=== PATIENT | male | born 1950 | race Caucasian/White ===

== ENCOUNTER 2019-12-24 16:50 | Emergency (ER) | payer MEDICARE, MEDICAID, SELFPAY ==
--- NOTE | 2019-12-24 16:56 | XRR_ITS ---
PROCEDURE INFORMATION: Exam: XR Chest, 1 View Exam date and time: 12/24/2019 5:27 PM Age: 69 years old Clinical indication: Cough and dyspnea; Patient HX: Low 02, rb cell count down; Additional info: Dyspnea/cough TECHNIQUE: Imaging protocol: XR of the chest Views: 1 view. COMPARISON: CR Chest 2 views* [id number] 01/10/2017 10:54 AM FINDINGS: Lungs: No focal consolidation. . Minimal subsegmental atelectasis right lower lung. Diminutive inspiratory volume. Probable nipple shadow overlies the lower left lung. Pleural space: No pleural effusion. Heart/Mediastinum: Stable heart size. Bones/joints: Degenerative change of the spine. XR/XR chest 1V portable [id number] IMPRESSION: Minimal linear atelectasis right lower lung
[2019-12-24 17:30] VITALS: BP 113/57; PULSE 93; RESP 18; TEMP 36.8; O2SAT 97; BMI 29.0
[2019-12-24 18:14] LABS: Basophils % 0.5 %; Eosinophils # 0.1 10^3/uL (0.0-0.8); Eosinophils % 1.7 %; Hematocrit 22.6 % (42.0-52.0); Hemoglobin 6.6 g/dL (11.7-16.6); Lymphocytes # 1.7 10^3/uL (0.8-4.8); Lymphocytes % 21.5 %; Mean Corpuscular HGB Conc 29.2 g/dL (30.0-36.0); Mean Corpuscular Hemoglobin 36.5 pg (28.0-34.0); Mean Corpuscular Volume 124.9 fL (80-94); Mean Platelet Volume 9.2 fL (7.4-10.4); Monocytes # 0.6 10^3/uL (0.2-0.9); Monocytes % 7.9 %; Neutrophils # 5.19 10^3/uL (1.8-7.7); Neutrophils % 67.4 %; Nucleated Red Blood Cells % 0.3 %; Platelet Count 437 10^3/cmm (130-400); Red Blood Count 1.81 10^6/uL (4.1-5.3); Red Cell Distribution Width 17.2 % (12.1-15.1); White Blood Count 7.7 10^3/uL (4.0-10.0)
[2019-12-24 18:42] LABS: Alanine Aminotransferase 15 U/L (0-41); Albumin Level 3.8 g/dL (3.5-5.2); Alkaline Phosphatase 91 IU/L (40-130); Anion Gap 12.5 (5-19); Aspartate Amino Transferase 33 U/L (0-40); Blood Urea Nitrogen 28 mg/dL (8-23); Calcium 8.5 mg/dL (8.5-10.5); Carbon Dioxide 24 mmol/L (22-29); Chloride 101 mmol/L (98-107); Globulin 2.7 g/dL (1.3-4.6); Glomerular Filtration Rate 133.2 mL/min (90-130); Glucose 191 mg/dL (65-115); Osmolality Calculated 280 mOsm/kg (285-295); Potassium 3.5 mmol/L (3.5-5.1); Sodium 134 mmol/L (136-145); Total Bilirubin 0.2 mg/dL (0.15-1.2); Total Protein 6.5 g/dL (6.6-8.7)
--- NOTE | 2019-12-24 19:24 | W.ED.RECABL ---
HPI - Recheck/Abnormal Lab/Rx General: Chief Complaint: Recheck/Abnormal Lab/Rx Stated Complaint: sob/low bc Time Seen by Provider: 12/24/19 18:56 History of Present Illness: HPI narrative: This patient is a 69-year-old male presenting with low blood counts. He went to his primary care physician who sent him here for blood transfusion due to anemia. He had gone to see his PCP because yesterday he had abdominal pain and threw up black liquid. He denies any black or tarry stools. He has been constipated. He denies any abdominal pain or vomiting today. He in fact denies any complaints and does not even think he needs a blood transfusion. Review of Systems Card: Denies: chest pain Resp: Denies: dyspnea or productive cough GI: Reports: abdominal pain, nausea, vomiting and coffee ground emesis Musc: Reports: extremity swelling (Nonhealing ulcers, lymphedema, neuropathy) Patrick/Lymph: Reports: easy bruising; Denies: easy bleeding PFS ED PFSH: Family History Brother Diabetes Mother Diabetes Sister Diabetes Father Stroke Social History Smoking and tobacco status: former smoker Physical Exam Const: COMMON NORMALS: no acute distress, patient oriented x3, no limitations and alert GENERAL APPEARANCE: cooperative and comfortable OTHER: Pale HENMT: HEAD & SCALP: normal to inspection FACE & SINUS: normal facial exam Eye: GENERAL EYE: appearance normal, both eyes and all related structures Neck/C-Spine: COMMON NORMALS: supple, no meningeal signs and no JVD Chest: COMMONS NORMALS: normal inspection of the chest Resp: COMMON NORMALS: normal respiratory effort, No use of accessory muscles and clear to auscultation bilaterally AUSCULTATION: clear to auscultation bilaterally Cardio: COMMON NORMALS: no JVD, regular rate, regular rhythm and No murmurs present (Cardio) RATE: regular rate RHYTHM: regular rhythm GI: COMMON NORMALS: Normal to inspection, nondistended, normoactive bowel sounds present, Soft to palpation and non-tender INSPECTION: Yes normal to inspection AUSCULTATION: Yes normoactive bowel sounds PALPATION: Yes Soft to palpation Back/Pelvis: COMMON NORMALS: thoracic and lumbar spine normal to inspection Extremity: COMMON NORMALS: normal to inspection NARRATIVE EXTREMITY EXAM: Notable deformity of both lower extremities with significant swelling and almost clubbing. Upper extremities also seem to have some contracture. Neuro: COMMON NORMALS: patient oriented x3, moves all extremities, no focal motor deficits and no sensory deficits noted SENSORIUM/ORIENTATION: Yes alert MENINGEAL SIGNS: Yes no meningeal signs Psych: COMMON NORMALS: mental status grossly normal, cooperative and normal affect Skin: COMMON NORMALS: no rashes or lesions noted and turgor normal GENERAL SKIN EXAM: no rashes or lesions noted and turgor normal Course ED course: Patient was very irate that he had not gotten his blood transfusion within an hour of arriving here. Explained that they had crossmatch the blood and that even the transfusion would take a while. I offered admission. He refused admission and did not want to stay in the ER. I offered to have him come back in the morning for an outpatient transfusion. He felt like that was a better plan. He is stable and has no active bleeding. Vital Signs: Vital signs: Vital Signs Temperature 98.2 F 12/24/19 17:30 Pulse Rate 101 H 12/24/19 21:19 Respiratory Rate 14 12/24/19 21:19 Blood Pressure 142/85 12/24/19 21:19 Pulse Oximetry 98 12/24/19 21:19 MDM - Recheck/Abnormal Lab/Rx Lab Data: Labs: Lab Results 12/24/19 12/24/19 12/24/19 Range/Units 18:00 18:00 18:00 WBC 7.7 (4.0-10.0) 10^3/ uL RBC 1.81 L (4.1-5.3) 10^6/u L Hgb 6.6 L (11.7-16.6) g/dL Hct 22.6 L (42.0-52.0) % MCV 124.9 H (80-94) fL MCH 36.5 H (28.0-34.0) pg MCHC 29.2 L (30.0-36.0) g/dL RDW 17.2 H (12.1-15.1) % Plt Count 437 H (130-400) 10^3/c mm MPV 9.2 (7.4-10.4) fL Neut % (Auto) 67.4 % Lymph % (Auto) 21.5 % [place] % (Auto) 7.9 % Eos % (Auto) 1.7 % Baso % (Auto) 0.5 % Neut # (Auto) 5.19 (1.8-7.7) 10^3/u L Lymph # (Auto) 1.7 (0.8-4.8) 10^3/u L [place] # (Auto) 0.6 (0.2-0.9) 10^3/u L Eos # (Auto) 0.1 (0.0-0.8) 10^3/u L Baso # (Auto) 0.0 (0.0-0.1) 10^3/u L Nucleated RBC % (a uto) 0.3 % Nucleated RBCs # 0.0 /100WBC Sodium 134 L (136-145) mmol/L Potassium 3.5 (3.5-5.1) mmol/L Chloride 101 (98-107) mmol/L Carbon Dioxide 24 (22-29) mmol/L Anion Gap 12.5 (5-19) BUN 28 H (8-23) mg/dL Creatinine 0.6 L (0.7-1.2) mg/dL GFR Calculation 133.2 H (90-130) mL/min Glucose 191 H (65-115) mg/dL Calculated Osmolal ity 280 L (285-295) mOsm/k g Calcium 8.5 (8.5-10.5) mg/dL Total Bilirubin 0.2 (0.15-1.2) mg/dL AST 33 (0-40) U/L ALT 15 (0-41) U/L Alkaline Phosphata se 91 (40-130) IU/L Total Protein 6.5 L (6.6-8.7) g/dL Albumin 3.8 (3.5-5.2) g/dL Globulin 2.7 (1.3-4.6) g/dL Digoxin (0.6-1.2) ng/mL Blood Type O Positive Rho(D) Type Positive Antibody Screen Negative Crossmatch See Detail 12/24/19 Range/Units 19:27 WBC (4.0-10.0) 10^3/ uL RBC (4.1-5.3) 10^6/u L Hgb (11.7-16.6) g/dL Hct (42.0-52.0) % MCV (80-94) fL MCH (28.0-34.0) pg MCHC (30.0-36.0) g/dL RDW (12.1-15.1) % Plt Count (130-400) 10^3/c mm MPV (7.4-10.4) fL Neut % (Auto) % Lymph % (Auto) % [place] % (Auto) % Eos % (Auto) % Baso % (Auto) % Neut # (Auto) (1.8-7.7) 10^3/u L Lymph # (Auto) (0.8-4.8) 10^3/u L [place] # (Auto) (0.2-0.9) 10^3/u L Eos # (Auto) (0.0-0.8) 10^3/u L Baso # (Auto) (0.0-0.1) 10^3/u L Nucleated RBC % (a uto) % Nucleated RBCs # /100WBC Sodium (136-145) mmol/L Potassium (3.5-5.1) mmol/L Chloride (98-107) mmol/L Carbon Dioxide (22-29) mmol/L Anion Gap (5-19) BUN (8-23) mg/dL Creatinine (0.7-1.2) mg/dL GFR Calculation (90-130) mL/min Glucose (65-115) mg/dL Calculated Osmolal ity (285-295) mOsm/k g Calcium (8.5-10.5) mg/dL Total Bilirubin (0.15-1.2) mg/dL AST (0-40) U/L ALT (0-41) U/L Alkaline Phosphata se (40-130) IU/L Total Protein (6.6-8.7) g/dL Albumin (3.5-5.2) g/dL Globulin (1.3-4.6) g/dL Digoxin 1.2 (0.6-1.2) ng/mL Blood Type Rho(D) Type Antibody Screen Crossmatch Discharge Plan Discharge Patient Disposition: Home Clinical Impression: Anemia Qualifiers: Anemia type: unspecified type Qualified Code(s): D64.9 - Anemia, unspecified Condition: Stable Prescriptions: No Action Lantus U-100 Insulin 100 unit/mL solution See Rx Instructions .ROUTE .COMPLEX RF: 0 atorvastatin 40 mg tablet 40 mg PO DAILY RF: 0 Farxiga 10 mg tablet 10 mg PO DAILY RF: 0 glyburide 5 mg tablet 5 mg PO BID RF: 0 aspirin 325 mg tablet 325 mg PO DAILY RF: 0 Janumet 50-1,000 mg tablet 1 tab PO BID RF: 0 cholecalciferol (vitamin D3) 1,250 mcg (50,000 unit) capsule 50,000 unit PO Q7D RF: 0 ferrous sulfate 325 mg (65 mg iron) tablet 325 mg PO BID RF: 0 gabapentin 300 mg capsule 300 mg PO BID RF: 0 clopidogrel 75 mg tablet 75 mg PO DAILY 90 Days Qty: 90 RF: 3 gemfibrozil 600 mg tablet 600 mg PO BID 30 Days Qty: 60 RF: 6 digoxin 250 mcg (0.25 mg) tablet 250 mcg PO DAILY 30 Days Qty: 30 RF: 6 fenofibrate 160 mg tablet 160 mg PO DAILY 30 Days Qty: 90 RF: 3 atenolol 25 mg tablet 25 mg PO DAILY 30 Days Qty: 90 RF: 3 Fish Oil 1,200 (144-216) mg Capsule 1 cap PO BID RF: 0 Vitamin C 1 tab PO BID RF: 0 furosemide 40 mg tablet 60 mg PO DAILY RF: 0 potassium chloride 20 mEq tablet extended release 30 meq PO DAILY RF: 0 Discharge Orders: Discharge Order (Routine); Ordered 12/24/19 Ordered By: Madeleine Maurer Referrals: Dilip Solano, BUSINESS DEVELOPMENT ASSISTANT [Primary Care Provider] - Activity Restrictions/Additional Instructions: Return to the GI lab tomorrow for a blood transfusion. Do not take off the blood bank armband as you must have that in order to get the blood that was prepared tonight. Discharge Date/Time: 12/24/19 21:20 Coding Level of Care Code ED Civil Engineering Professional for Soheila Harry Exam Comprehensive
[2019-12-24 20:15] LABS: Digoxin 1.2 ng/mL (0.6-1.2)
[2019-12-24 20:32] VITALS: BP 137/76; PULSE 101; RESP 14; O2SAT 97
[2019-12-24 21:19] VITALS: BP 142/85; PULSE 101; RESP 14; O2SAT 98
== END 2019-12-24 21:20 | disposition home or self-care (01) ==
PROVIDERS: Family Medicine; Emergency Provider Emergency Medicine; PCP Nurse Practitioner
DX: D64.9 Anemia, unspecified (principal); Z79.82 Long term (current) use of aspirin; Z79.4 Long term (current) use of insulin; Z79.02 Long term (current) use of antithrombotics/antiplatelets; Z87.891 Personal history of nicotine dependence; R11.2 Nausea with vomiting, unspecified
CPT/HCPCS: 12345; 36415; 71045; 80053; 80162; 85025; 86850; 86900; 86920; 99282; 99283

== ENCOUNTER → 2019-12-26 08:47 | Day surgery (SDC) | payer MEDICARE, MEDICAID, SELFPAY ==
[2019-12-26] VITALS (11 sets, daily range): BP systolic 109–135; BP diastolic 54–67; PULSE 83–89; RESP 18; TEMP 36.8–37.4; O2SAT 98–100
== END ==
PROVIDERS: PCP Nurse Practitioner; Visit Provider Emergency Medicine
DX: D64.9 Anemia, unspecified (principal)
CPT/HCPCS: 36415; 36430; 86850; 86900; 86920; P9016

== ENCOUNTER 2020-07-10 07:03 | Emergency (ER) | payer MEDICARE, MEDICAID, SELFPAY ==
[2020-07-10] VITALS (10 sets, daily range): BP systolic 112–135; BP diastolic 47–75; PULSE 91–100; RESP 16–19; TEMP 36.6–37.1; O2SAT 95–100; BMI 29.0
--- NOTE | 2020-07-10 07:10 | XRR_ITS ---
PROCEDURE INFORMATION: Exam: XR Chest, 1 View Exam date and time: 07/10/2020 7:13 AM Age: 69 years old Clinical indication: Shortness of breath; Additional info: Reduced breath sounds TECHNIQUE: Imaging protocol: XR of the chest Views: 1 view. COMPARISON: CR XR chest 1V portable [id number] 12/24/2019 5:12 PM FINDINGS: Lungs: Unremarkable. No consolidation. Pleural spaces: Unremarkable. No pleural effusion. No pneumothorax. Heart/Mediastinum: Unremarkable. No cardiomegaly. Bones/joints: Unremarkable. XR/XR chest 1V portable [id number] IMPRESSION: No acute findings.
--- NOTE | 2020-07-10 07:12 | ECG_ITS ---
[facility] Test Date: 2020-07-10 Pat Name: Allan Hardin Department: Room: Gender: Male It Integration Architect: : 1950 Requested By: Jose Cruz Lee Order Number: [id number] Jha MD: Joy Galvan M.D. Measurements Intervals Muse Rate: 94 P: 82 SC: 146 QRS: 59 QRSD: 88 T: -3 QT: 344 QTc: 431 Interpretive Statements SINUS RHYTHM NONSPECIFIC ST & T-WAVE ABNORMALITY Compared to ECG 07/18/2014 22:40:10 Sinus tachycardia no longer present T-wave abnormality still present Electronically Signed On 07-10-2020 19:29:11 WOOD PRESERVING [employer] by Joy Galvan M.D. [id number]
[2020-07-10 07:24] LABS: ABG PCO2 37.8 mmHg (35-45); ABG PH Result 7.46 (7.35-7.45); Arterial Blood Gas Hematocrit 18.2 % (42-52); Base Excess ABG 2.7 mmol/L (-2.0-2.0); Blood Gas Allen Test Pos; Blood Gas Operator Identificat ED; Blood Gas Sample Site Radial, right; Blood Gas Sample Type Arterial; Carboxyhemoglobin 2.8 %THgb (0.4-20.1); HCO3 ABG 26.8 mmol/L (22-26); HGB O2 Sat 92.1 % (95-100); Methemoglobin 1.4 % (0.4-1.5); Oxygen Device ROOM AIR; PO2 ABG 70.5 mmHg (80.0-100.0); Total Hemoglobin 5.9 g/dL (14-18)
[2020-07-10] MEDS: insulin regular-human 100 units/1 mL 10 UNIT IVP (07:32)
--- NOTE | 2020-07-10 07:32 | ED_ITS ---
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 He comes to the ER complaining of increasing fatigue and coughing up blood though he says in the ER he did not cough up blood he vomited blood. He is not coughing in the ER nor on the EMS ride. His glucose was 481 on arrival. He did not take his insulin this morning. He is a poor historian and describes his symptoms poorly. He says he started feeling unwell last night. Associated symptoms: Deny chest pain, confusion, dyspnea, headache(s), rash or palpitations Review of Systems General: Reports: 10 or more systems reviewed and unremarkable except in HPI and below Const: Denies: fatigue Eyes: Denies: change in vision, blurry vision or eye redness ENMT: Denies: throat pain, swelling of lips/tongue, ear or mastoid pain or nasal congestion Card: Denies: chest pain, palpitations, irregular heart rhythm, edema, dyspnea on exertion or orthopnea Resp: Denies: dyspnea, productive cough or non-productive cough GI: Denies: abdominal pain, diarrhea or GI cramping : Denies: flank pain, urinary frequency or urinary urgency Musc: Denies: neck pain, back pain, extremity pain, joint pain, joint redness, limited range of motion or muscle weakness Skin/Breast: Denies: rash, pruritus, erythema, skin pain or skin tenderness Neuro: Denies: headache(s), numbness in extremities, weakness in extremities, sensory changes, difficulty walking, dizziness, confusion or Slurred speech present Psych: Denies: anxiety or depression Endo: Denies: polyuria All/Imm: Denies: urticaria, throat swelling or tongue swelling PFSH ED PFSH: Medical History (Updated 07/10/20 @ 09:38 by Jose Cruz Lee MD) CAD (coronary artery disease) Diabetes mellitus History of MN (myocardial infarction) Lymphedema PAD (peripheral artery disease) Phimosis Venous insufficiency Surgical History S/P appendectomy Family History Brother Diabetes Mother Diabetes Sister Diabetes Father Stroke Social History Smoking and tobacco status: former smoker Alcohol intake: former Marital status: Current occupational status: disabled Physical Exam Const: COMMON NORMALS: no acute distress, average body habitus, patient oriented x3, no limitations, healthy appearing, alert and well nourished GENERAL APPEARANCE: cooperative, comfortable, well kempt and well developed ORIENTATION/CONSCIOUSNESS: Yes awake, Yes oriented to person, Yes oriented to place and Yes oriented to time HENMT: COMMON NORMALS: normocephalic, external ears normal and Normal external nose present HEAD & SCALP: normal to inspection and normocephalic NOSE: Normal external nose present EXTERNAL EAR: Yes external ears normal MOUTH: Normal oral and palatal mucosa present THROAT: posterior oropharynx normal Eye: COMMON NORMALS: Equal, round and reactive pupils present and EOMs intact bilaterally GENERAL EYE: appearance normal, both eyes and all related structures PUPIL: Yes Equal, round and reactive pupils present Neck/C-Spine: COMMON NORMALS: full ROM, no lymphadenopathy, no meningeal signs and no JVD GENERAL: Yes normal visual inspection Lymph: LYMPHATIC: no lymphadenopathy noted Chest: COMMONS NORMALS: normal inspection of the chest and normal palpation of entire chest wall Resp: COMMON NORMALS: normal respiratory effort, No retractions, No use of accessory muscles, clear to auscultation bilaterally and percussion normal EFFORT & INSPECTION: Yes able to speak in complete sentences AUSCULTATION: clear to auscultation bilaterally PERCUSSION: percussion normal Cardio: COMMON NORMALS: no JVD, regular rate, regular rhythm, S1 normal heart sound present, S2 normal heart sound present and Peripheral pulses 2+ throughout RATE: regular rate RHYTHM: regular rhythm HEART SOUNDS: S1 normal heart sound present and S2 normal heart sound present PERIPHERAL PULSES: Peripheral pulses 2+ throughout GI: COMMON NORMALS: Normal to inspection, nondistended, normoactive bowel sounds present, Soft to palpation, non-tender and no masses INSPECTION: Yes normal to inspection PALPATION: Yes Soft to palpation : COMMON NORMALS: Yes no CVA tenderness BLADDER/KIDNEY EXAM: Yes no CVA tenderness Back/Pelvis: COMMON NORMALS: no CVA tenderness, thoracic and lumbar spine normal to inspection, no thoracic nor lumbar tenderness and thoraco-lumbar ROM normal Extremity: COMMON NORMALS: normal to inspection, full ROM, capillary refill normal, no joint enlargement and no pedal edema GENERAL: Yes normal exam except as noted Neuro: COMMON NORMALS: patient oriented x3, CN's II-XII intact bilaterally, moves all extremities, no focal motor deficits, no sensory deficits noted and gait normal SENSORIUM/ORIENTATION: Yes alert, Yes oriented to person, Yes oriented to place and Yes oriented to time MENINGEAL SIGNS: Yes no meningeal signs Psych: COMMON NORMALS: mental status grossly normal, Normal thought process present, cooperative, normal affect and speech normal APPEARANCE: Yes well kempt ATTITUDE: Yes calm SPEECH: Yes normal speech THOUGHT PROCESS: Normal thought process present Skin: COMMON NORMALS: no rashes or lesions noted NARRATIVE SKIN EXAM: Chronic elephantiasis to calfs down to feet which is moderate to severe. GENERAL SKIN EXAM: no rashes or lesions noted Course ED course: His hemoglobin came back at 5.9. He has chronic severe anemia and has been transfused before. The cause of this is unknown because he refuses EGD and colonoscopy. I asked him again and he again refused. I told him he could bleed to and he understands and accepts those consequences and still refuses. Discussed with Dr. Navarro who accepts to the floor. Vital Signs: Vital signs: Vital Signs Temperature 98.0 F 07/10/20 09:27 Pulse Rate 99 07/10/20 09:27 Respiratory Rate 18 07/10/20 09:27 Blood Pressure 133/75 07/10/20 09:27 Pulse Oximetry 97 07/10/20 09:[address] [facility] - General Adult Lab Data: Labs: Lab Results 07/10/20 07/10/20 07/10/20 Range/Units 07:14 07:21 07:21 WBC 8.0 (4.0-10.0) 10^3/ uL RBC 2.12 L (4.1-5.3) 10^6/u L Hgb 5.9 L* (11.7-16.6) g/dL Hct 21.6 L (42.0-52.0) % MCV 101.9 H (80-94) fL MCH 27.8 L (28.0-34.0) pg MCHC 27.3 L (30.0-36.0) g/dL RDW 15.9 H (12.1-15.1) % Plt Count 497 H (130-400) 10^3/c mm MPV 9.8 (7.4-10.4) fL Neut % (Auto) 80.3 % Lymph % (Auto) 12.0 % [place] % (Auto) 6.4 % Eos % (Auto) 0.2 % Baso % (Auto) 0.5 % Neut # (Auto) 6.45 (1.8-7.7) 10^3/u L Lymph # (Auto) 1.0 (0.8-4.8) 10^3/u L [place] # (Auto) 0.5 (0.2-0.9) 10^3/u L Eos # (Auto) 0.0 (0.0-0.8) 10^3/u L Baso # (Auto) 0.0 (0.0-0.1) 10^3/u L Nucleated RBC % (a uto) 0 % Nucleated RBCs # 0.0 /100WBC Specimen Type Arterial Sample Site Radial, right ABG pH 7.46 H (7.35-7.45) ABG pCO2 37.8 (35-45) mmHg ABG pO2 70.5 L (80.0-100.0) mmH g ABG HCO3 26.8 H (22-26) mmol/L ABG Base Excess 2.7 H (-2.0-2.0) mmol/ L Joseluis Test Pos Hematocrit 18.2 L (42-52) % Hgb O2 Saturation 92.1 L (95-100) % Carboxyhemoglobin 2.8 (0.4-20.1) %THgb Methemoglobin 1.4 (0.4-1.5) % Total Hemoglobin 5.9 L (14-18) g/dL O2 Delivery Device Room air FiO2 21.0 % Graining Operator ID Ed Sodium 134 L (136-145) mmol/L Potassium 4.5 (3.5-5.1) mmol/L Chloride 96 L (98-107) mmol/L Carbon Dioxide 26 (22-29) mmol/L Anion Gap 16.5 (5-19) BUN 35 H (8-23) mg/dL Creatinine 0.7 (0.7-1.2) mg/dL GFR Calculation 111.5 (90-130) mL/min Glucose 439 H (65-115) mg/dL Calculated Osmolal ity 305 H (285-295) mOsm/k g Lactate (0.5-2.2) mmol/L Calcium 9.2 (8.5-10.5) mg/dL Total Bilirubin 0.2 (0.15-1.2) mg/dL AST 29 (0-40) U/L ALT 15 (0-41) U/L Alkaline Phosphata se 126 (40-130) IU/L Troponin T Baselin e (0-15) ng/L NT-Pro-B Natriuret Pep 103 (0-125) pg/mL Total Protein 7.1 (6.6-8.7) g/dL Albumin 3.8 (3.5-5.2) g/dL Globulin 3.3 (1.3-4.6) g/dL Urine Color (Yellow) Urine Appearance (CLEAR) Urine pH (5-7) Ur Specific Gravit y (1.005-1.030) Urine Protein (Negative) Urine Glucose (UA) (Normal) Urine Ketones (Negative) Urine Blood (Negative) Urine Nitrate (Negative) Urine Bilirubin (Negative) Urine Urobilinogen (Negative) mg/dL Ur Leukocyte [place] ase (Negative) Blood Type Rho(D) Type Antibody Screen Crossmatch 07/10/20 07/10/20 07/10/20 Range/Units 07:21 07:21 08:21 WBC (4.0-10.0) 10^3/ uL RBC (4.1-5.3) 10^6/u L Hgb (11.7-16.6) g/dL Hct (42.0-52.0) % MCV (80-94) fL MCH (28.0-34.0) pg MCHC (30.0-36.0) g/dL RDW (12.1-15.1) % Plt Count (130-400) 10^3/c mm MPV (7.4-10.4) fL Neut % (Auto) % Lymph % (Auto) % [place] % (Auto) % Eos % (Auto) % Baso % (Auto) % Neut # (Auto) (1.8-7.7) 10^3/u L Lymph # (Auto) (0.8-4.8) 10^3/u L [place] # (Auto) (0.2-0.9) 10^3/u L Eos # (Auto) (0.0-0.8) 10^3/u L Baso # (Auto) (0.0-0.1) 10^3/u L Nucleated RBC % (a uto) % Nucleated RBCs # /100WBC Specimen Type Sample Site ABG pH (7.35-7.45) ABG pCO2 (35-45) mmHg ABG pO2 (80.0-100.0) mmH g ABG HCO3 (22-26) mmol/L ABG Base Excess (-2.0-2.0) mmol/ L Joseluis Test Hematocrit (42-52) % Hgb O2 Saturation (95-100) % Carboxyhemoglobin (0.4-20.1) %THgb Methemoglobin (0.4-1.5) % Total Hemoglobin (14-18) g/dL O2 Delivery Device FiO2 % Graining Operator ID Sodium (136-145) mmol/L Potassium (3.5-5.1) mmol/L Chloride (98-107) mmol/L Carbon Dioxide (22-29) mmol/L Anion Gap (5-19) BUN (8-23) mg/dL Creatinine (0.7-1.2) mg/dL GFR Calculation (90-130) mL/min Glucose (65-115) mg/dL Calculated Osmolal ity (285-295) mOsm/k g Lactate 2.5 H (0.5-2.2) mmol/L Calcium (8.5-10.5) mg/dL Total Bilirubin (0.15-1.2) mg/dL AST (0-40) U/L ALT (0-41) U/L Alkaline Phosphata se (40-130) IU/L Troponin T Baselin e 21 H (0-15) ng/L NT-Pro-B Natriuret Pep (0-125) pg/mL Total Protein (6.6-8.7) g/dL Albumin (3.5-5.2) g/dL Globulin (1.3-4.6) g/dL Urine Color (Yellow) Urine Appearance (CLEAR) Urine pH (5-7) Ur Specific Gravit y (1.005-1.030) Urine Protein (Negative) Urine Glucose (UA) (Normal) Urine Ketones (Negative) Urine Blood (Negative) Urine Nitrate (Negative) Urine Bilirubin (Negative) Urine Urobilinogen (Negative) mg/dL Ur Leukocyte [place] ase (Negative) Blood Type O Positive Rho(D) Type Positive Antibody Screen Negative Crossmatch See Detail 07/10/20 Range/Units 08:25 WBC (4.0-10.0) 10^3/ uL RBC (4.1-5.3) 10^6/u L Hgb (11.7-16.6) g/dL Hct (42.0-52.0) % MCV (80-94) fL MCH (28.0-34.0) pg MCHC (30.0-36.0) g/dL RDW (12.1-15.1) % Plt Count (130-400) 10^3/c mm MPV (7.4-10.4) fL Neut % (Auto) % Lymph % (Auto) % [place] % (Auto) % Eos % (Auto) % Baso % (Auto) % Neut # (Auto) (1.8-7.7) 10^3/u L Lymph # (Auto) (0.8-4.8) 10^3/u L [place] # (Auto) (0.2-0.9) 10^3/u L Eos # (Auto) (0.0-0.8) 10^3/u L Baso # (Auto) (0.0-0.1) 10^3/u L Nucleated RBC % (a uto) % Nucleated RBCs # /100WBC Specimen Type Sample Site ABG pH (7.35-7.45) ABG pCO2 (35-45) mmHg ABG pO2 (80.0-100.0) mmH g ABG HCO3 (22-26) mmol/L ABG Base Excess (-2.0-2.0) mmol/ L Joseluis Test Hematocrit (42-52) % Hgb O2 Saturation (95-100) % Carboxyhemoglobin (0.4-20.1) %THgb Methemoglobin (0.4-1.5) % Total Hemoglobin (14-18) g/dL O2 Delivery Device FiO2 % Graining Operator ID Sodium (136-145) mmol/L Potassium (3.5-5.1) mmol/L Chloride (98-107) mmol/L Carbon Dioxide (22-29) mmol/L Anion Gap (5-19) BUN (8-23) mg/dL Creatinine (0.7-1.2) mg/dL GFR Calculation (90-130) mL/min Glucose (65-115) mg/dL Calculated Osmolal ity (285-295) mOsm/k g Lactate (0.5-2.2) mmol/L Calcium (8.5-10.5) mg/dL Total Bilirubin (0.15-1.2) mg/dL AST (0-40) U/L ALT (0-41) U/L Alkaline Phosphata se (40-130) IU/L Troponin T Baselin e (0-15) ng/L NT-Pro-B Natriuret Pep (0-125) pg/mL Total Protein (6.6-8.7) g/dL Albumin (3.5-5.2) g/dL Globulin (1.3-4.6) g/dL Urine Color Yellow (Yellow) Urine Appearance Clear (CLEAR) Urine pH 7 (5-7) Ur Specific Gravit y 1.005 (1.005-1.030) Urine Protein Neg (Negative) Urine Glucose (UA) 4+ H (Normal) Urine Ketones 1+ H (Negative) Urine Blood Neg (Negative) Urine Nitrate Negative (Negative) Urine Bilirubin Neg (Negative) Urine Urobilinogen Norm (Negative) mg/dL Ur Leukocyte [place] ase Negative (Negative) Blood Type Rho(D) Type Antibody Screen Crossmatch Discharge Plan Discharge Patient Disposition: Placed in Observation Clinical Impression: Severe anemia, Acute hyperglycemia Coding Level of Care Code ED Cannery Worker for Soheila Harry
[2020-07-10] MEDS: sodium chloride 0.9% 1,000 ML 999 ML IV (07:35)
[2020-07-10 08:07] LABS: Basophils % 0.5 %; Eosinophils % 0.2 %; Hematocrit 21.6 % (42.0-52.0); Mean Corpuscular HGB Conc 27.3 g/dL (30.0-36.0); Mean Corpuscular Hemoglobin 27.8 pg (28.0-34.0); Mean Corpuscular Volume 101.9 fL (80-94); Mean Platelet Volume 9.8 fL (7.4-10.4); Monocytes # 0.5 10^3/uL (0.2-0.9); Monocytes % 6.4 %; Neutrophils # 6.45 10^3/uL (1.8-7.7); Neutrophils % 80.3 %; Nucleated Red Blood Cells % 0 %; Platelet Count 497 10^3/cmm (130-400); Red Blood Count 2.12 10^6/uL (4.1-5.3); Red Cell Distribution Width 15.9 % (12.1-15.1)
[2020-07-10 08:11] LABS: Hemoglobin 5.9 g/dL (11.7-16.6)
--- NOTE | 2020-07-10 08:24 | PC.NURSE ---
Pt resting in bed, brought consent in for patient and . Patient explained that could sign the consent, as he was getting blood drawn. Patient is agreeable to blood transfusion.
[2020-07-10 08:39] LABS: Lactate (Lactic Acid level) 2.5 mmol/L (0.5-2.2)
[2020-07-10 08:41] LABS: Troponin(5th) Baseline 21 ng/L (0-15)
[2020-07-10 08:50] LABS: Add Urine Microscopic? NO
[2020-07-10 09:04] LABS: Bilirubin Urine Neg (Negative); Blood Urine Neg (Negative); Glucose Urine UA 4+ (Normal); Ketones Urine 1+ (Negative); Leukocyte Esterase Urine Negative (Negative); Nitrate Urine Negative (Negative); Protein Urine Neg (Negative); Specific Gravity, Urine 1.005 (1.005-1.030); Urine Appearance Clear (CLEAR); Urine Color Yellow (Yellow); Urobilinogen Urine Norm (Negative); pH Urine 7 (5-7)
[2020-07-10 09:06] LABS: Alanine Aminotransferase 15 U/L (0-41); Albumin Level 3.8 g/dL (3.5-5.2); Alkaline Phosphatase 126 IU/L (40-130); Anion Gap 16.5 (5-19); Aspartate Amino Transferase 29 U/L (0-40); Blood Urea Nitrogen 35 mg/dL (8-23); Calcium 9.2 mg/dL (8.5-10.5); Carbon Dioxide 26 mmol/L (22-29); Chloride 96 mmol/L (98-107); Globulin 3.3 g/dL (1.3-4.6); Glomerular Filtration Rate 111.5 mL/min (90-130); Glucose 439 mg/dL (65-115); NT Pro B Type Natriuretic Pept 103 pg/mL (0-125); Osmolality Calculated 305 mOsm/kg (285-295); Potassium 4.5 mmol/L (3.5-5.1); Sodium 134 mmol/L (136-145); Total Bilirubin 0.2 mg/dL (0.15-1.2); Total Protein 7.1 g/dL (6.6-8.7)
--- NOTE | 2020-07-10 10:18 | PM.HP ---
Providers/Chief Complaint Primary Care Provider: MALOU Najera Chief Complaint: COUGHING UP BLOOD History of Present Illness Pleasant 69-year-old gentleman with history of surgery for necrotizing appendicitis in 1989, PAD, on chronic aspirin, Plavix, occasionally taking Aleve, former smoker, having quit 4 years ago, denies any alcohol consumption, comes in for evaluation after emesis of bloody and dark/coffee-ground/almost feculent appearing material this morning. Prior to this he was at usual state of health. He had an episode similar to this in December 2019 at which time received blood transfusion, but reportedly declined additional endoscopic evaluation. Denies that he has ever had a EGD. Hemoccult positive in ER. Reports having looser stool this morning, but otherwise suffers from recurrent constipation. No hemoptysis. Reports occasional cough no recent stopping smoking, but no worsening recently. Not coughing up blood. Denies george hematemesis. No known history of liver disease. He did not take his medications this morning. Review of Systems Const: Denies: fever(s), chills, body aches or malaise Eyes: Denies: change in vision or eye redness ENMT: Denies: throat pain, oral sores or ear or mastoid pain Card: Denies: chest pain, edema, pre-syncope or dyspnea on exertion Resp: Denies: dyspnea, productive cough, change in phlegm color or hemoptysis GI: Denies: abdominal pain, nausea, vomiting, diarrhea, constipation, hematochezia or melena : Denies: flank pain, difficulty urinating, urinary frequency or hematuria Musc: Reports: other (Nonambulatory since 2016. Gets around in a wheelchair.); Denies: back pain, joint swelling or joint redness Skin/Breast: Reports: other (Chronic hyperkeratotic/sclerosing lesions covering most of bilateral LE); Denies: rash, sores or new lesions Neuro: Denies: headache(s), numbness in extremities, weakness in extremities, dizziness, confusion or seizure-like activity Endo: Denies: polyuria or polydipsia Patrick/Lymph: Denies: easy bleeding or purpura All/Imm: Denies: urticaria, throat swelling or tongue swelling Medications/Allergies Home Medications Medication Instructions Recorded Confirmed Last Taken Type aspirin 325 mg tablet 325 mg PO DAILY 09/17/19 07/10/2007/09/21 History atorvastatin 40 mg tablet 40 mg PO DAILY 09/17/19 07/10/20 07/09/20 History dapagliflozin 10 mg tablet 10 mg PO DAILY 09/17/19 07/10/20 07/09/20 History ferrous sulfate 325 mg (65 mg 325 mg PO BID 09/17/19 07/10/20 07/09/20 History iron) tablet gabapentin 300 mg capsule 300 mg PO BID 09/17/19 07/10/20 07/09/20 History glyburide 5 mg tablet 5 mg PO BID 09/17/19 07/10/20 07/09/20 History insulin glargine 100 unit/mL See Rx Instructions .ROUTE 09/17/19 07/10/20 07/10/20 History subcutaneous solution .COMPLEX ml sitagliptin 50 mg-metformin 1,000 1 tab PO BID 09/17/19 07/10/20 07/09/20 History mg tablet omega 3-pjg-kxu-fish oil [Fish Oil] 1 cap PO BID 12/24/19 07/10/20 07/09/20 History atenolol 25 mg tablet 25 mg PO DAILY #90 tab 01/20/20 07/10/20 07/09/20 Rx digoxin 250 mcg (0.25 mg) tablet 250 mcg PO DAILY #30 tab 02/03/20 07/10/20 07/09/20 Rx potassium chloride 20 mEq See Rx Instructions .ROUTE 02/03/20 07/10/20 07/09/20 Rx tablet,extended release(part/cryst) .COMPLEX #45 unspecified bisacodyl 5 mg tablet 5 mg PO DAILY PRN 02/19/20 07/10/20 Unknown History fenofibrate 160 mg tablet 160 mg PO DAILY 02/19/20 07/10/20 07/09/20 History folic acid-vit B6-vit B12 2.5 1 tab PO DAILY 02/19/20 07/10/20 07/09/20 History mg-25 mg-1 mg tablet gemfibrozil 600 mg tablet 600 mg PO BID 02/19/20 07/10/20 07/09/20 History clopidogrel 75 mg tablet 75 mg PO DAILY #90 tab 05/05/20 07/10/20 07/09/20 Rx furosemide 40 mg tablet See Rx Instructions .ROUTE 01/12/0807/10/20 07/09/20 Rx .COMPLEX #45 tab ascorbic acid (vitamin C) 500 mg 500 mg PO DAILY 06/09/20 07/10/20 07/09/20 History capsule cholecalciferol (vitamin D3) 1,250 50,000 unit PO Q14D cap 06/09/20 07/10/20 Unknown History mcg (50,000 unit) capsule nystatin 100,000 unit/gram topical 1 applic TOPICAL BID PRN 06/09/20 07/10/20 Unknown History cream Allergies Allergy/AdvReac Type Severity Reaction Status Date / Time Penicillins Allergy Unknown Unknown Verified 12/24/19 19:21 PFSH Acute PFSH: Medical History (Updated 07/10/20 @ 10:29 by Artemio Navarro MD) CAD (coronary artery disease) Diabetes mellitus Former smoker History of [place] (myocardial infarction) Lymphedema PAD (peripheral artery disease) Phimosis Unable to ambulate Venous insufficiency Surgical History (Updated 07/10/20 @ 10:24 by Artemio Navarro MD) S/P appendectomy S/P peripheral artery angioplasty with stent placement Family History Brother Diabetes Mother Diabetes Sister Diabetes Father Stroke Social History Smoking and tobacco status: former smoker Quit status (tobacco): has quit using tobacco Year quit tobacco: 4 ya Alcohol intake: former Substance/Drug Use: never Lives independently: No Household members: spouse Marital status: Current occupational status: disabled Vitals/I&O/Wt Last Vital Signs Temp 98.0 F 07/10/20 09:59 Pulse 100 07/10/20 09:59 Resp 18 07/10/20 09:59 BP 123/62 07/10/20 09:59 Pulse Ox 97 07/10/20 09:59 07/09/20 07/10/20 07/10/20 22:59 06:59 14:59 Intake Total 1000 / 1000 Balance 1000 / 1000 Weight last 48 hrs Weight 81.647 kg Physical Exam Narrative: EXAM NARRATIVE: Accompanied in ER room by his . Provides most of his own history, with feeling in a few details. Const: COMMON NORMALS: no acute distress and patient oriented x3 NUTRITIONAL APPEARANCE: overweight HENMT: COMMON NORMALS: oropharynx normal Neck/C-Spine: COMMON NORMALS: no JVD Resp: COMMON NORMALS: normal respiratory effort and clear to auscultation bilaterally AUSCULTATION: clear to auscultation bilaterally Cardio: COMMON NORMALS: no JVD, regular rhythm, S1 normal heart sound present, S2 normal heart sound present and No murmurs present (Cardio) RHYTHM: regular rhythm HEART SOUNDS: S1 normal heart sound present and S2 normal heart sound present GI: COMMON NORMALS: Normal to inspection, nondistended, normoactive bowel sounds present, Soft to palpation and non-tender PALPATION: Yes Soft to palpation Extremity: COMMON NORMALS: no joint enlargement and no pedal edema OTHER: Foot contractures. Right hand contracture. Neuro: COMMON NORMALS: patient oriented x3 and moves all extremities Skin: COMMON NORMALS: no rashes or lesions noted GENERAL SKIN EXAM: no rashes or lesions noted OTHER: Severe hyperkeratosis of large surfaces of both lower extremities. Data : 07/10/20 07:21 07/10/20 07:21 A&P Assessment and plan (1) Upper GI bleeding: Hematemesis this morning. Appears this is a recurrent episode, with last episode in December 2019. At that time managed conservatively. He declined to undergo EGD. He takes regularly his aspirin, 325 mg, Plavix. Occasionally takes Aleve. Did not take any of the medications this morning after hematemesis. No history of liver disease. No george hematemesis. Hemoglobin 5.9. 2 units pRBC transfusion ordered in ER. Follow up hemoglobin. IV PPI, every 12 hours. Discussed with him his . Discussed also for now we will hold aspirin, Plavix. He now also would be agreeable for endoscopic evaluation. With history of smoking, and he tells me also used to eat a number of poisonous plants in the past to survive, including mistletoe and water lilies. Status: Acute (2) Acute anemia: As above. Status: Acute (3) Hematemesis: PPI. N.p.o. Blood transfusion. Follow hemoglobin. Surgery evaluation. Hold aspirin, Plavix. Discussed with him and his to discontinue Aleve. May use Tylenol if needed. Status: Acute (4) Troponin level elevated: Minimal vaginal troponin. Denies any chest pain. Perhaps secondary to acute anemia. Receiving PRBC transfusion as above. Listed history of CAD, although he denies. For now aspirin, Plavix on hold. Continue statin. Status: Acute (5) Unable to ambulate: Since 2016. Gets around in a wheelchair. Appears to have chronic contractures of feet, right hand. Status: Acute (6) DM type 2 (diabetes mellitus, type 2): Continue Lantus. Hold oral medications for now. Sliding scale insulin. Status: Acute (7) Former smoker: Status: Inactive Attestations Medical Necessity Statement*: Admission of over 2 midnights ago needed for assessment of management of recurrent GI bleeding, acute severe anemia, hematemesis, in a gentleman on dual antiplatelet therapy with history of PAD and stenting. 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
--- NOTE | 2020-07-10 11:58 | P.CONIM_ITS ---
Providers/Reason For Consult Consulting Physican/Specialty*: Alexey Moya MD Reason for Consult*: Coffee-ground emesis associated with anemia Attending Physician: Artemio Navarro Primary Care Provider: MALOU Najera History of Present Illness History of Present Illness Chief Complaint: Vomited black stuff History of present illness: Allan Hardin is a 69 year old male presents to the emergency department with history of coffee-ground emesis today morning, patient comes to the ER escorted by his and apparently he had a similar episode back in December and required blood transfusion but never undergone endoscopies. Patient was tested for Hemoccult positive in the ER and he does sustain chronic lymphedema of bilateral lower extremities. Patient maintained to have stable vital signs and blood work showed hemoglobin of 5.9. Patient denies any previous peptic ulcer disease but he does report being on chronic aspirin and Plavix therapy. And takes Aleve as needed. He denies alcohol consumption. General surgery was consulted for potential endoscopy Patient was seen and evaluated at room #14 emergency department Review of Systems General: Reports: 10 or more systems reviewed and unremarkable except in HPI and below Meds/Allergies Home Medications and Allergies Home Medications Medication Instructions Recorded Confirmed Last Taken Type aspirin 325 mg tablet 325 mg PO DAILY 09/17/19 07/10/20 07/09/20 History atorvastatin 40 mg tablet 40 mg PO DAILY 09/17/19 07/10/20 07/09/20 History dapagliflozin 10 mg tablet 10 mg PO DAILY 09/17/19 07/10/20 07/09/20 History ferrous sulfate 325 mg (65 mg 325 mg PO BID 09/17/19 07/10/20 07/09/20 History iron) tablet gabapentin 300 mg capsule 300 mg PO BID 09/17/19 07/10/20 07/09/20 History glyburide 5 mg tablet 5 mg PO BID 09/17/19 07/10/20 07/09/20 History insulin glargine 100 unit/mL See Rx Instructions .ROUTE 09/17/19 07/10/20 07/10/20 History subcutaneous solution .COMPLEX ml sitagliptin 50 mg-metformin 1,000 1 tab PO BID 09/17/19 07/10/20 07/09/20 History mg tablet omega 8-uwo-lss-fish oil [Fish Oil] 1 cap PO BID 08/10/0707/10/20 07/09/20 History atenolol 25 mg tablet 25 mg PO DAILY #90 tab 01/20/20 07/10/20 07/09/20 Rx digoxin 250 mcg (0.25 mg) tablet 250 mcg PO DAILY #30 tab 02/03/20 07/10/20 07/09/20 Rx potassium chloride 20 mEq See Rx Instructions .ROUTE 02/03/20 07/10/20 07/09/20 Rx tablet,extended release(part/cryst) .COMPLEX #45 unspecified bisacodyl 5 mg tablet 5 mg PO DAILY PRN 02/19/20 07/10/20 Unknown History fenofibrate 160 mg tablet 160 mg PO DAILY 02/19/20 07/10/20 07/09/20 History folic acid-vit B6-vit B12 2.5 1 tab PO DAILY 02/19/20 07/10/20 07/09/20 History mg-25 mg-1 mg tablet gemfibrozil 600 mg tablet 600 mg PO BID 02/19/20 07/10/20 07/09/20 History clopidogrel 75 mg tablet 75 mg PO DAILY #90 tab 05/05/20 07/10/20 07/09/20 Rx furosemide 40 mg tablet See Rx Instructions .ROUTE 05/27/20 07/10/20 07/09/20 Rx .COMPLEX #45 tab ascorbic acid (vitamin C) 500 mg 500 mg PO DAILY 06/09/20 07/10/20 07/09/20 History capsule cholecalciferol (vitamin D3) 1,250 50,000 unit PO Q14D cap 06/09/20 07/10/20 Unknown History mcg (50,000 unit) capsule nystatin 100,000 unit/gram topical 1 applic TOPICAL BID PRN 06/09/20 07/10/20 Unknown History cream Allergies Allergy/AdvReac Type Severity Reaction Status Date / Time Penicillins Allergy Unknown Unknown Verified 07/10/20 12:48 PFSH Acute PFSH: Medical History (Updated 07/10/20 @ 10:29 by Artemio Navarro MD) CAD (coronary artery disease) Diabetes mellitus Former smoker History of [place] (myocardial infarction) Lymphedema PAD (peripheral artery disease) Phimosis Unable to ambulate Venous insufficiency Surgical History (Updated 07/10/20 @ 10:24 by Artemio Navarro MD) S/P appendectomy S/P peripheral artery angioplasty with stent placement Family History Brother Diabetes Mother Diabetes Sister Diabetes Father Stroke Social History Smoking and tobacco status: former smoker Quit status (tobacco): has quit using tobacco Year quit tobacco: 4 ya Alcohol intake: former Substance/Drug Use: never Lives independently: No Household members: spouse Marital status: Current occupational status: disabled Vitals/I&O/Wt Last Vital Signs Temp 97.8 F 07/10/20 11:51 Pulse 91 07/10/20 11:51 Resp 17 07/10/20 11:51 BP 112/49 07/10/20 11:51 Pulse Ox 100 07/10/20 11:51 07/09/20 07/10/20 07/10/20 22:59 06:59 14:59 Intake Total 1350 / 1350 Balance 1350 / 1350 Weight last 48 hrs Weight 180 lb Physical Exam Narrative: EXAM NARRATIVE: Patient is conscious alert oriented X3 BMI 29.1 Head and neck examination PERRLA no masses no cervical lymphadenopathy no jaundice Cardiac examination audible S1-S2 no murmurs no gallops no arrhythmias Chest is clear bilateral,abscence of Rhonchi or wheezes,no surgical emphysema Abdomen nontender nondistended soft no organomegaly guarding or rigidity/no signs of peritonitis Lower midline scar for history of laparotomy for perforated appendicitis Extremities bilateral lower lymphedema advanced(elephantiasis) no evidence of infection A&P Assessment and plan (1) Upper GI bleeding: Plan of care; After thorough history and physical examination and reviewing the chart, plan to perform a diagnostic esophagogastroduodenoscopy with possible biopsy in the GI lab tomorrow after appropriate resuscitation.Likely down the road patient would benefit from a colonoscopy. I discussed with the patient in detail the risk,benefits,alternatives and indications.The risk of aspiration, bleeding, soft tissue injury, perforation of the stomach/esophagus and other potential concomitant complications were explained to the patient in details,aslo the potential need for Thoracic and or Abdominal surgery to repair any complications.The patient understood this well and decided to postpone this procedure as he is interested to receive the blood transfusion and leave today with his . As he would like to schedule this procedure as an outpatient by following up with his primary care provider Sunday. Rationale was carefully and clearly discussed with the patient. All questions have been answered and all concerns have been addressed to patient's satisfaction. Status: Acute Consult Attestations Medical Necessity Statement: Inpatient hospitalization for medical and surgical care Time Spent in Patient Care: (>than 50% of time spent in counselling and/or direct pt care on unit) . 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
== END 2020-07-10 14:52 | disposition still patient (30) ==
LOC: ER 11:45 → MEDSURG 12:41
PROVIDERS: Emergency Provider Family Medicine; PCP Nurse Practitioner
DX: D64.9 Anemia, unspecified (principal); E11.65 Type 2 diabetes mellitus with hyperglycemia; I25.10 Atherosclerotic heart disease of native coronary artery without angina pectoris; I25.2 Old myocardial infarction; Z87.891 Personal history of nicotine dependence
CPT/HCPCS: 36415; 36430; 36600; 71045; 80053; 81003; 82805; 83605; 83880; 84484; 85025; 86850; 86900; 86920; 93005; 96361; 96374; 99284; J1815; J7030; P9016

== ENCOUNTER → 2020-08-09 16:06 | Outpatient (BNVA) | payer MEDICARE, MEDICAID, SELFPAY | PROVIDERS: PCP Nurse Practitioner; Visit Provider Internal Medicine | DX: D53.9 Nutritional anemia, unspecified (principal) | CPT/HCPCS: 80053; 82607; 82746; 83550; 84443; 85025 ==

== ENCOUNTER 2020-08-24 06:00 | Outpatient (RCR) | payer MEDICARE, MEDICAID, SELFPAY | END 2020-09-17 23:59 | disposition home or self-care (01) | LOC: GPT 06:00 | PROVIDERS: PCP Nurse Practitioner; Referring Provider Internal Medicine Cardiovascular Disease; Visit Provider Internal Medicine Cardiovascular Disease | DX: I89.0 Lymphedema, not elsewhere classified (principal) | CPT/HCPCS: 29581; 97140; 97161 ==

== ENCOUNTER 2020-09-18 06:00 | Outpatient (RCR) | payer MEDICARE, MEDICAID, SELFPAY | END 2020-10-18 23:59 | disposition home or self-care (01) | LOC: GPT 06:00 | PROVIDERS: PCP Nurse Practitioner; Referring Provider Internal Medicine Cardiovascular Disease; Visit Provider Internal Medicine Cardiovascular Disease | DX: I89.0 Lymphedema, not elsewhere classified (principal) | CPT/HCPCS: 29581; 97140 ==

== ENCOUNTER 2020-10-19 06:00 | Outpatient (RCR) | payer MEDICARE, MEDICAID, SELFPAY | END 2020-11-17 23:59 | disposition home or self-care (01) | LOC: GPT 06:00 | PROVIDERS: PCP Nurse Practitioner; Referring Provider Internal Medicine Cardiovascular Disease; Visit Provider Internal Medicine Cardiovascular Disease | DX: I89.0 Lymphedema, not elsewhere classified (principal) | CPT/HCPCS: 29581; 97140 ==

== ENCOUNTER 2020-11-18 06:00 | Outpatient (RCR) | payer MEDICARE, MEDICAID, SELFPAY | END 2020-12-18 23:59 | disposition home or self-care (01) | LOC: GPT 06:00 | PROVIDERS: PCP Nurse Practitioner; Referring Provider Internal Medicine Cardiovascular Disease; Visit Provider Internal Medicine Cardiovascular Disease | DX: I89.0 Lymphedema, not elsewhere classified (principal) | CPT/HCPCS: 29581; 97140 ==

== ENCOUNTER 2020-12-19 06:00 | Outpatient (RCR) | payer MEDICARE, MEDICAID, SELFPAY | END 2021-01-18 23:59 | disposition home or self-care (01) | LOC: GPT 06:00 | PROVIDERS: PCP Nurse Practitioner; Referring Provider Internal Medicine Cardiovascular Disease; Visit Provider Internal Medicine Cardiovascular Disease | DX: I89.0 Lymphedema, not elsewhere classified (principal) | CPT/HCPCS: 97140 ==

== ENCOUNTER 2021-04-27 06:00 | Outpatient (RCR) | payer MEDICARE, MEDICAID, SELFPAY | END 2021-05-20 23:59 | disposition home or self-care (01) | LOC: GPT 06:00 | PROVIDERS: PCP Nurse Practitioner; Referring Provider Nurse Practitioner; Visit Provider Nurse Practitioner | DX: Q66.89 Other specified congenital deformities of feet (principal); G62.9 Polyneuropathy, unspecified; I89.0 Lymphedema, not elsewhere classified; Z99.3 Dependence on wheelchair | CPT/HCPCS: 29581; 97110; 97140; 97162 ==

== ENCOUNTER 2021-05-21 06:00 | Outpatient (RCR) | payer MEDICARE, MEDICAID, SELFPAY | END 2021-06-20 23:59 | disposition home or self-care (01) | LOC: GPT 06:00 | PROVIDERS: PCP Nurse Practitioner; Referring Provider Nurse Practitioner; Visit Provider Nurse Practitioner | DX: Q66.89 Other specified congenital deformities of feet (principal) | CPT/HCPCS: 97110; 97112 ==

== ENCOUNTER 2021-06-21 06:00 | Outpatient (RCR) | payer MEDICARE, MEDICAID, SELFPAY | END 2021-07-18 23:59 | disposition home or self-care (01) | LOC: GPT 06:00 | PROVIDERS: PCP Nurse Practitioner; Referring Provider Nurse Practitioner; Visit Provider Nurse Practitioner | DX: G62.9 Polyneuropathy, unspecified (principal); I89.0 Lymphedema, not elsewhere classified; Z99.3 Dependence on wheelchair | CPT/HCPCS: 97110 ==

== ENCOUNTER 2021-07-19 06:00 | Outpatient (RCR) | payer MEDICARE, MEDICAID, SELFPAY | END 2021-08-01 23:59 | disposition home or self-care (01) | LOC: GPT 06:00 | PROVIDERS: PCP Nurse Practitioner; Referring Provider Nurse Practitioner; Visit Provider Nurse Practitioner | DX: G62.9 Polyneuropathy, unspecified (principal); I89.0 Lymphedema, not elsewhere classified; Z99.3 Dependence on wheelchair | CPT/HCPCS: 97110 ==

== ENCOUNTER 2021-07-26 06:00 | Outpatient (RCR) | payer MEDICARE, MEDICAID, SELFPAY | END 2021-08-18 23:59 | disposition home or self-care (01) | LOC: GOT 06:00 | PROVIDERS: PCP Nurse Practitioner; Referring Provider Nurse Practitioner; Visit Provider Nurse Practitioner | DX: G95.29 Other cord compression (principal); Q66.89 Other specified congenital deformities of feet; I89.0 Lymphedema, not elsewhere classified; M62.81 Muscle weakness (generalized); Z99.3 Dependence on wheelchair; G62.9 Polyneuropathy, unspecified | CPT/HCPCS: 97166; 97542 ==

== ENCOUNTER → 2021-09-26 13:22 | Outpatient (BNVA) | payer MEDICARE, MEDICAID, SELFPAY | PROVIDERS: PCP Nurse Practitioner; Visit Provider Internal Medicine | DX: I25.10 Atherosclerotic heart disease of native coronary artery without angina pectoris (principal); I73.9 Peripheral vascular disease, unspecified; Z87.891 Personal history of nicotine dependence; I25.2 Old myocardial infarction; R00.0 Tachycardia, unspecified; I49.3 Ventricular premature depolarization; I49.1 Atrial premature depolarization; R00.2 Palpitations | CPT/HCPCS: 93225; 93226; 99214 ==

== ENCOUNTER 2021-12-27 06:00 | Outpatient (RCR) | payer MEDICARE, MEDICAID, SELFPAY | END 2022-01-18 23:59 | disposition home or self-care (01) | LOC: SPT 06:00 | PROVIDERS: PCP Nurse Practitioner; Visit Provider Thoracic Surgery (Cardiothoracic Vascular Surgery) | DX: I89.0 Lymphedema, not elsewhere classified (principal) | CPT/HCPCS: 29581; 97140; 97161 ==

== ENCOUNTER 2022-01-19 06:00 | Outpatient (RCR) | payer MEDICARE, MEDICAID, SELFPAY | END 2022-02-17 23:59 | disposition home or self-care (01) | LOC: SPT 06:00 | PROVIDERS: PCP Nurse Practitioner; Visit Provider Thoracic Surgery (Cardiothoracic Vascular Surgery) | DX: I89.0 Lymphedema, not elsewhere classified (principal) | CPT/HCPCS: 29581; 97140 ==

== ENCOUNTER 2022-02-18 06:00 | Outpatient (RCR) | payer MEDICARE, MEDICAID, SELFPAY | END 2022-03-20 23:59 | disposition home or self-care (01) | LOC: SPT 06:00 | PROVIDERS: PCP Nurse Practitioner; Visit Provider Thoracic Surgery (Cardiothoracic Vascular Surgery) | DX: I89.0 Lymphedema, not elsewhere classified (principal) | CPT/HCPCS: 29581; 97140 ==

== ENCOUNTER 2022-05-16 06:00 | Outpatient (RCR) | payer MEDICARE, MEDICAID, SELFPAY | END 2022-05-20 23:59 | disposition home or self-care (01) | LOC: GOT 06:00 | PROVIDERS: PCP Nurse Practitioner; Visit Provider Thoracic Surgery (Cardiothoracic Vascular Surgery) | DX: I89.0 Lymphedema, not elsewhere classified (principal) | CPT/HCPCS: 97140; 97166 ==

== ENCOUNTER 2022-05-18 09:56 | Emergency (ER) | payer MEDICARE, MEDICAID, SELFPAY ==
[2022-05-18] VITALS (7 sets, daily range): BP systolic 113–119; BP diastolic 52–63; PULSE 71–73; RESP 15–19; O2SAT 96–99; BMI 28.2
--- NOTE | 2022-05-18 09:59 | XR_ITS ---
WS: [id number] Portable AP upright chest, 05/18/2022 Clinical Data: dyspnea/cough Comparison: Portable chest, 07/10/2020 Findings: No nodules, masses or effusions are seen. The heart is normal. The pulmonary vascularity is not increased. No pneumonia or pneumothorax is seen. The aortic arch and descending thoracic aorta s how mild tortuosity. XR/XR chest 1V portable [id number] Impression: Atherosclerosis.
--- NOTE | 2022-05-18 10:00 | ECG_ITS ---
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 Measurements Intervals [place] Rate: 69 P: 61 WI: 165 QRS: 22 QRSD: 96 T: 58 QT: 337 QTc: 361 Interpretive Statements SINUS RHYTHM NONSPECIFIC ST & T-WAVE ABNORMALITY Compared to ECG 07/10/2020 07:41:32 No significant changes Electronically Signed On 05-18-2022 21:09:33 COUNTER SUPERVISOR by Michelle Prakash M.D. [id number]
--- NOTE | 2022-05-18 10:06 | W.ED.SOB ---
HPI - SOB/Dyspnea General: Chief Complaint: Shortness of Breath/Dyspnea Stated Complaint: Low O2 Time Seen by Provider: 05/18/22 09:58 Source: patient Mode of arrival: wheelchair History of Present Illness: HPI Narrative: 71-year-old male with a history of lymphedema presents to the emergency room with complaints of shortness of breath. His states had an oxygen saturation at home that was 83%. On arrival here he is 98% on room air he is not having difficulty breathing he denies any shortness of breath denies any chest pain. His legs are chronically edematous and unchanged. He has been seeing the wound clinic lately for a venous ulcer of the lower extremity. He has a history of coronary artery disease peripheral vascular disease. Previously has had an OR. No recent change in medications. Pertinent past history: congestive heart failure, diabetes and other (Coronary artery disease) Onset (ago): minute(s) Exacerbating factors: nothing Relieving factors: nothing Known history of: congestive heart failure, diabetes and other (Coronary artery disease) Associated symptoms: Deny abdominal pain, chest congestion, chest pain, cough, diaphoresis, dizziness, extremity pain, fever(s), hemoptysis, lightheadedness, myalgias, nausea, orthopnea, palpitations, paresthesias, polydipsia, polyuria, rash, sense of impending doom, syncope or vomiting Treatment prior to arrival: none Review of Systems Const: Denies: fever(s), chills, fatigue, malaise or diaphoresis ENMT: Denies: throat pain, ear or mastoid pain, nasal discharge or nasal congestion Card: Reports: edema; Denies: chest pain, palpitations, lightheadedness, syncope or orthopnea Resp: Reports: dyspnea; Denies: productive cough, non-productive cough, wheezing, hemoptysis or chest congestion GI: Denies: abdominal pain, nausea or vomiting : Denies: flank pain, dysuria, urinary frequency or urinary urgency Musc: Denies: extremity pain Skin/Breast: Denies: rash or pruritus Neuro: Denies: dizziness Endo: Denies: polyuria or polydipsia PFS ED PFSH: Medical History CAD (coronary artery disease) Diabetes mellitus Former smoker History of [place] (myocardial infarction) Lymphedema PAD (peripheral artery disease) Phimosis Unable to ambulate Venous insufficiency Surgical History S/P appendectomy S/P peripheral artery angioplasty with stent placement Family History Brother Diabetes Mother Diabetes Sister Diabetes Father Stroke Social History Smoking and tobacco status: former smoker Quit status (tobacco): has quit using tobacco Year quit tobacco: 4 ya Alcohol intake: former Lives independently: No Household members: spouse Marital status: Current occupational status: disabled Physical Exam Const: GENERAL APPEARANCE: cooperative and comfortable ORIENTATION/CONSCIOUSNESS: Yes awake, Yes oriented to person, Yes oriented to place and Yes oriented to time HENMT: COMMON NORMALS: normocephalic, atraumatic and hearing grossly normal bilaterally HEAD & SCALP: normocephalic and atraumatic Resp: COMMON NORMALS: normal respiratory effort, No retractions, No use of accessory muscles and clear to auscultation bilaterally AUSCULTATION: clear to auscultation bilaterally Cardio: COMMON NORMALS: regular rate, regular rhythm and No murmurs present (Cardio) RATE: regular rate RHYTHM: regular rhythm GI: COMMON NORMALS: Soft to palpation and No hepatosplenomegaly present AUSCULTATION: Yes normoactive bowel sounds PALPATION: Yes Soft to palpation, No Tenderness to palpation present (GI), No Guarding due to palpation present (GI) and Yes No hepatosplenomegaly present Extremity: GENERAL: Yes edema (3+ chronic edema lower extremities.) Neuro: SENSORIUM/ORIENTATION: Yes oriented to person, Yes oriented to place and Yes oriented to time Skin: COMMON NORMALS: no rashes or lesions noted GENERAL SKIN EXAM: no rashes or lesions noted Course Vital Signs: Vital signs: Vital Signs Pulse Rate 71 05/18/22 15:31 Respiratory Rate 15 05/18/22 15:31 Blood Pressure 119/52 05/18/22 11:00 Pulse Oximetry 98 05/18/22 15:31 Oxygen Delivery Me thod 05/18/22 10:03 MDM - SOB/Dyspnea Medical Decision Making Labs imaging reviewed on the chart. EKG shows nonspecific ST changes unchanged from June 2020. Patient's leg edema is chronic. Chest x-ray unremarkable. He is overmedicated with his digoxin and his digoxin level is elevated at 1.9. The concern was hypoxia at home however here his oxygen sat remained stable the entire time he would not qualify for oxygen. He is not having any chest discomfort discussed findings with patient and his they would like to go home we will discharge him home hold digoxin for 3 days and then resume at 125 mcg daily. We noted his hemoglobin is down to 8. Also reviewing his hemoglobin as he has had this previously in talking to him and his he has had problems with anemia before he was seen and evaluated however because of his many comorbid conditions they did not do any endoscopy was thought that the source was GI blood losses. There is still a mind not to pursue any further work-up. Recommend that they follow-up early next week for repeat CBC and dig level. Monitor blood sugars closely continue other medications if is any change return to the emergency room. Discussed overall cares with the is patient's main caregiver they wish to continue at home and would like to be discharged. Medical Records I reviewed the patient's medical records. Lab Data I reviewed the patient's lab results. 05/18/22 10:05 05/18/22 10:05 Labs/Radiology: Radiology Impressions Chest X-Ray 05/18/22 09:59 Impression: Atherosclerosis. Laboratory Results WBC 5.9 10^3/uL (4.0-10.0) 05/18/22 10:05 RBC 2.41 10^6/uL (4.1-5.3) L 05/18/22 10:05 Hgb 8.0 g/dL (11.7-16.6) L 05/18/22 10:05 Hct 26.7 % (42.0-52.0) L 05/18/22 10:05 MCV 110.8 fl (80-94) H 05/18/22 10:05 MCH 33.2 pg (28.0-34.0) 05/18/22 10:05 MCHC 30.0 g/dL (30.0-36.0) 05/18/22 10:05 RDW 15.7 % (12.1-15.1) H 05/18/22 10:05 Plt Count 642 10^3/cmm (130-400) H 05/18/22 10:05 MPV 8.9 fL (7.4-10.4) 05/18/22 10:05 Neut % (Auto) 65.0 % 05/18/22 10:05 Lymph % (Auto) 18.7 % 05/18/22 10:05 Geary % (Auto) 11.8 % 05/18/22 10:05 Eos % (Auto) 3.2 % 05/18/22 10:05 Baso % (Auto) 1.0 % 05/18/22 10:05 Neut # (Auto) 3.81 10^3/uL (1.8-7.7) 05/18/22 10:05 Lymph # (Auto) 1.1 10^3/uL (0.8-4.8) 05/18/22 10:05 Geary # (Auto) 0.7 10^3/uL (0.2-0.9) 05/18/22 10:05 Eos # (Auto) 0.2 10^3/uL (0.0-0.8) 05/18/22 10:05 Baso # (Auto) 0.1 10^3/uL (0.0-0.1) 05/18/22 10:05 Nucleated RBC % (auto) 0 % 05/18/22 10:05 Nucleated RBCs # 0.0 /100WBC 05/18/22 10:05 Specimen Type Arterial 05/18/22 10:50 Sample Site Radial, right 05/18/22 10:50 ABG pH 7.45 (7.35-7.45) 05/18/22 10:50 ABG pCO2 39.4 mmHg (35-45) 05/18/22 10:50 ABG pO2 72.5 mmHg (80.0-100.0) L 05/18/22 10:50 ABG HCO3 27.2 mmol/L (22-26) H 05/18/22 10:50 ABG O2 Saturation 96.4 05/18/22 10:50 ABG Base Excess 3.0 mmol/L (-2.0-2.0) H 05/18/22 10:50 Joseluis Test Pos 05/18/22 10:50 A-a O2 Gradient 3.6 mmHg (5-10) L 05/18/22 10:50 Hematocrit 22.4 % (42-52) L 05/18/22 10:50 Hgb O2 Saturation 93.1 % (95-100) L 05/18/22 10:50 Carboxyhemoglobin 2.5 %THgb (0.4-20.1) 05/18/22 10:50 Methemoglobin 0.9 % (0.4-1.5) 05/18/22 10:50 Total Hemoglobin 7.3 g/dL (14-18) L 05/18/22 10:50 Sodium 139.0 mmol/L (131-143) 05/18/22 10:50 Potassium 3.5 mmol/L (3.5-5.0) 05/18/22 10:50 Glucose 125.0 mg/dL (70-115) H 05/18/22 10:50 Ionized Calcium 1.5 mmol/L (1.1-1.4) H 05/18/22 10:50 O2 Delivery Device None 05/18/22 10:50 FiO2 21.0 % 05/18/22 10:50 Flotation Tender Helper ID Walci 05/18/22 10:50 Sodium 137 mmol/L (136-145) 05/18/22 10:05 Potassium 3.4 mmol/L (3.5-5.1) L 05/18/22 10:05 Chloride 100 mmol/L (98-107) 05/18/22 10:05 Carbon Dioxide 26 mmol/L (22-29) 05/18/22 10:05 Anion Gap 14.4 (5-19) 05/18/22 10:05 BUN 30 mg/dL (8-23) H 05/18/22 10:05 Creatinine 1.1 mg/dL (0.7-1.2) 05/18/22 10:05 GFR Calculation Not Reportable 05/18/22 10:05 Glucose 119 mg/dL (65-115) H 05/18/22 10:05 Calculated Osmolality 291 mOsm/kg (285-295) 05/18/22 10:05 Calcium 10.9 mg/dL (8.5-10.5) H 05/18/22 10:05 Total Bilirubin 0.2 mg/dL (0.15-1.2) 05/18/22 10:05 AST 23 U/L (0-40) 05/18/22 10:05 ALT 10 U/L (0-41) 05/18/22 10:05 Alkaline Phosphatase 117 U/L (40-130) 05/18/22 10:05 Total Protein 7.3 g/dL (6.6-8.7) 05/18/22 10:05 Albumin 3.5 g/dL (3.5-5.2) 05/18/22 10:05 Globulin 3.8 g/dL (1.3-4.6) 05/18/22 10:05 Digoxin 1.9 ng/mL (0.6-1.2) H 05/18/22 10:05 Discharge Plan Discharge Patient Disposition: Home Clinical Impression: Lymphedema, Upper GI bleeding, Unable to ambulate, DM type 2 (diabetes mellitus, type 2), Macrocytic anemia, Venous ulcer of lower extremity without varicose veins, CAD (coronary artery disease), Digoxin toxicity Condition: Stable Prescriptions: New Digox 125 mcg (0.125 mg) tablet 125 mcg PO DAILY Qty: 30 0RF Rx Instructions: Do not take any digoxin for the next 3 days and May pill 125 mcg daily Discontinued digoxin 250 mcg (0.25 mg) tablet 250 mcg PO DAILY Qty: 90 3RF No Action bisacodyl 5 mg tablet 5 mg PO DAILY PRN (Reason: Constipation) folic acid-vit B6-vit B12 [Folbee] 2.5-25-1 mg tablet 1 tab PO DAILY ascorbic acid (vitamin C) 500 mg capsule 500 mg PO DAILY aspirin 81 mg tablet,chewable 81 mg PO DAILY isosorbide mononitrate 30 mg tablet extended release 24 hr 30 mg PO DAILY Qty: 90 3RF Lantus U-100 Insulin 100 unit/mL solution See Rx Instructions .ROUTE .COMPLEX Rx Instructions: 20 unit subcutaneously qam and 50 units bedtime Farxiga 10 mg tablet 10 mg PO DAILY glyburide 5 mg tablet 5 mg PO BID ferrous sulfate 325 mg (65 mg iron) tablet 325 mg PO BID gabapentin 300 mg capsule 300 mg PO BID atorvastatin 40 mg tablet 40 mg PO DAILY Qty: 90 3RF clopidogrel 75 mg tablet 75 mg PO DAILY Qty: 90 3RF fenofibrate 160 mg tablet 160 mg PO DAILY Qty: 90 1RF gemfibrozil 600 mg tablet 600 mg PO BID Qty: 180 1RF atenolol 25 mg tablet 25 mg PO DAILY Qty: 90 1RF potassium chloride 20 mEq tablet,ER particles/crystals See Rx Instructions .ROUTE .COMPLEX Qty: 135 3RF Dose Instruction: TAKE 1 AND 1/2 TABLETS BY MOUTH ONCE DAILY Rx Instructions: TAKE 1 AND 1/2 TABLETS BY MOUTH ONCE DAILY furosemide 40 mg tablet See Rx Instructions .ROUTE .COMPLEX Qty: 45 3RF Dose Instruction: TAKE ONE (1) AND ONE HALF (1/2) TABLETS BY MOUTH NEEDED Rx Instructions: TAKE ONE (1) AND ONE HALF (1/2) TABLETS BY MOUTH NEEDED omega 9-gqf-fqy-fish oil [Fish Oil] 1,200 (144-216) mg Capsule 1 cap PO BID Discharge Orders: Discharge ED (Routine); Ordered 05/18/22 Ordered By: Clarence Roldan Referrals: Dilip Solano FNP [Primary Care Provider] - Discharge Diet: Usual diet Discharge Activity: Increase activity as tolerated Activity Restrictions/Additional Instructions: You are seen today for report of low oxygen saturation. While you were here your oxygen was normal. Your chest x-ray was normal. You do have macrocytic anemia however this is an old finding. You should have your hemoglobin rechecked in 2 to 3 days. Your digoxin level was also elevated. You should not take any digoxin for the next 3 days and then start at the new dose of 125 mcg daily. He should have a digoxin level rechecked at the same time you have your hemoglobin rechecked. Coding Level of Care Code ED Digital Media Specialist for Soheila Fwsanty Exam Detailed
[2022-05-18 11:01] LABS: ABG PCO2 39.4 mmHg (35-45); ABG PH Result 7.45 (7.35-7.45); Alveolar-Arterial Oxygen Gradi 3.6 mmHg (5-10); Arterial Blood Gas Hematocrit 22.4 % (42-52); Blood Gas Allen Test Pos; Blood Gas Operator Identificat WALCI; Blood Gas Sample Site Radial, right; Blood Gas Sample Type Arterial; Carboxyhemoglobin 2.5 %THgb (0.4-20.1); HCO3 ABG 27.2 mmol/L (22-26); HGB O2 Sat 93.1 % (95-100); Ionized Calcium Level - ABG 1.5 mmol/L (1.1-1.4); Methemoglobin 0.9 % (0.4-1.5); Oxygen Saturation ABG 96.4; PO2 ABG 72.5 mmHg (80.0-100.0); Potassium Level - ABG 3.5 mmol/L (3.5-5.0); Total Hemoglobin 7.3 g/dL (14-18)
[2022-05-18 11:01] LABS: Basophils # 0.1 10^3/uL (0.0-0.1); Eosinophils # 0.2 10^3/uL (0.0-0.8); Eosinophils % 3.2 %; Hematocrit 26.7 % (42.0-52.0); Lymphocytes # 1.1 10^3/uL (0.8-4.8); Lymphocytes % 18.7 %; Mean Corpuscular Hemoglobin 33.2 pg (28.0-34.0); Mean Corpuscular Volume 110.8 fl (80-94); Mean Platelet Volume 8.9 fL (7.4-10.4); Monocytes # 0.7 10^3/uL (0.2-0.9); Monocytes % 11.8 %; Neutrophils # 3.81 10^3/uL (1.8-7.7); Nucleated Red Blood Cells % 0 %; Platelet Count 642 10^3/cmm (130-400); Red Blood Count 2.41 10^6/uL (4.1-5.3); Red Cell Distribution Width 15.7 % (12.1-15.1); White Blood Count 5.9 10^3/uL (4.0-10.0)
[2022-05-18 11:17] LABS: Alanine Aminotransferase 10 U/L (0-41); Albumin Level 3.5 g/dL (3.5-5.2); Alkaline Phosphatase 117 U/L (40-130); Anion Gap 14.4 (5-19); Aspartate Amino Transferase 23 U/L (0-40); Blood Urea Nitrogen 30 mg/dL (8-23); Calcium 10.9 mg/dL (8.5-10.5); Carbon Dioxide 26 mmol/L (22-29); Chloride 100 mmol/L (98-107); Globulin 3.8 g/dL (1.3-4.6); Glucose 119 mg/dL (65-115); Osmolality Calculated 291 mOsm/kg (285-295); Potassium 3.4 mmol/L (3.5-5.1); Sodium 137 mmol/L (136-145); Total Bilirubin 0.2 mg/dL (0.15-1.2); Total Protein 7.3 g/dL (6.6-8.7)
[2022-05-18 11:18] LABS: Digoxin 1.9 ng/mL (0.6-1.2)
== END 2022-05-18 14:20 | disposition home or self-care (01) ==
PROVIDERS: Emergency Provider Family Medicine; PCP Nurse Practitioner
DX: I89.0 Lymphedema, not elsewhere classified (principal); K92.2 Gastrointestinal hemorrhage, unspecified; E11.9 Type 2 diabetes mellitus without complications; D53.9 Nutritional anemia, unspecified; I25.10 Atherosclerotic heart disease of native coronary artery without angina pectoris; T46.0X5A Adverse effect of cardiac-stimulant glycosides and drugs of similar action, initial encounter; Z79.02 Long term (current) use of antithrombotics/antiplatelets; Z79.82 Long term (current) use of aspirin; Z79.4 Long term (current) use of insulin; Z87.891 Personal history of nicotine dependence; I25.2 Old myocardial infarction; I83.009 Varicose veins of unspecified lower extremity with ulcer of unspecified site; L97.909 Non-pressure chronic ulcer of unspecified part of unspecified lower leg with unspecified severity
CPT/HCPCS: 36415; 36600; 71045; 80051; 80053; 80162; 82330; 82805; 85025; 93005; 99285

== ENCOUNTER 2022-05-21 06:00 | Outpatient (RCR) | payer MEDICARE, MEDICAID, SELFPAY | END 2022-06-20 23:59 | disposition home or self-care (01) | LOC: GOT 06:00 | PROVIDERS: PCP Nurse Practitioner; Visit Provider Thoracic Surgery (Cardiothoracic Vascular Surgery) | DX: I89.0 Lymphedema, not elsewhere classified (principal) | CPT/HCPCS: 97140 ==

== ENCOUNTER 2022-06-03 03:34 | Emergency (ER) | payer MEDICARE, MEDICAID, SELFPAY ==
[2022-06-03 03:45] VITALS: BP 144/64; PULSE 94; RESP 18; TEMP 36.6; O2SAT 97
--- NOTE | 2022-06-03 03:49 | W.ED.MALEGU ---
HPI - Male Genitourinary General: Chief complaint: Urogenital-Male Stated complaint: perla issues Time Seen by Provider: 06/03/22 03:36 Source: patient Mode of arrival: ambulatory Limitations: no limitations History of Present Illness: 71-year-old male who states he had a Perla placed last week as he is having urinary retention he states that tonight he has not had any drainage around the Perla has had some blood he is having increasing lower abdominal pain feels like he is retaining urine he denies any fever denies any worsening proving factors. Associated symptoms: Deny dysuria, nausea or vomiting Review of Systems Const: Denies: fever(s), chills, body aches or change in appetite Eyes: Denies: blurry vision or eye discomfort ENMT: Denies: throat pain or dental pain Card: Denies: chest pain Resp: Denies: dyspnea GI: Denies: abdominal pain, nausea, vomiting or diarrhea : Denies: dysuria Musc: Denies: neck pain or back pain Skin/Breast: Denies: rash Neuro: Denies: headache(s) Psych: Denies: depression Patrick/Lymph: Denies: easy bruising All/Imm: Denies: urticaria PFSH ED PFSH: Medical History CAD (coronary artery disease) Diabetes mellitus Former smoker History of [place] (myocardial infarction) Lymphedema PAD (peripheral artery disease) Phimosis Unable to ambulate Venous insufficiency Surgical History S/P appendectomy S/P peripheral artery angioplasty with stent placement Family History Brother Diabetes Mother Diabetes Sister Diabetes Father Stroke Social History Smoking and tobacco status: former smoker Quit status (tobacco): has quit using tobacco Year quit tobacco: 4 ya Alcohol intake: former Lives independently: No Household members: spouse Marital status: Current occupational status: disabled Physical Exam Const: COMMON NORMALS: no acute distress, patient oriented x3 and healthy appearing HENMT: COMMON NORMALS: normocephalic and atraumatic HEAD & SCALP: normocephalic and atraumatic Eye: COMMON NORMALS: Equal, round and reactive pupils present and EOMs intact bilaterally PUPIL: Yes Equal, round and reactive pupils present Neck/C-Spine: COMMON NORMALS: full ROM and supple Chest: COMMONS NORMALS: normal inspection of the chest and normal palpation of entire chest wall Resp: COMMON NORMALS: normal respiratory effort, No retractions, No use of accessory muscles and clear to auscultation bilaterally AUSCULTATION: clear to auscultation bilaterally Cardio: COMMON NORMALS: regular rate, regular rhythm and No murmurs present (Cardio) RATE: regular rate RHYTHM: regular rhythm GI: COMMON NORMALS: Normal to inspection, nondistended, normoactive bowel sounds present, Soft to palpation, non-tender and no masses PALPATION: Yes Soft to palpation : OTHER: perla in place with blood in perla Extremity: COMMON NORMALS: normal to inspection and full ROM Neuro: COMMON NORMALS: patient oriented x3, moves all extremities and no focal motor deficits Psych: COMMON NORMALS: mental status grossly normal, Normal thought process present and cooperative THOUGHT PROCESS: Normal thought process present Skin: COMMON NORMALS: no rashes or lesions noted and no wounds GENERAL SKIN EXAM: no rashes or lesions noted Course Vital Signs: Vital signs: Vital Signs Temperature 97.8 F 06/03/22 03:45 Pulse Rate 94 06/03/22 03:45 Respiratory Rate 18 06/03/22 03:45 Blood Pressure 144/64 06/03/22 03:45 Pulse Oximetry 97 06/03/22 03:45 Oxygen Delivery Me thod 06/03/22 03:45 MDM - Male Medical Decision Making Patient presents here with urinary tension changed out his Perla and placed a larger Perla and flush it was able to flush out blood clots he had large amount return he feels much improved urine is clear now he stable for discharge at this time he is to follow-up with his urologist in [place] home return if worsening. Discharge Plan Discharge Patient Disposition: Home Clinical Impression: Acute retention of urine, Complication of Perla catheter Condition: Stable Prescriptions: No Action bisacodyl 5 mg tablet 5 mg PO DAILY PRN (Reason: Constipation) folic acid-vit B6-vit B12 [Folbee] 2.5-25-1 mg tablet 1 tab PO DAILY ascorbic acid (vitamin C) 500 mg capsule 500 mg PO DAILY aspirin 81 mg tablet,chewable 81 mg PO DAILY isosorbide mononitrate 30 mg tablet extended release 24 hr 30 mg PO DAILY Qty: 90 3RF Lantus U-100 Insulin 100 unit/mL solution See Rx Instructions .ROUTE .COMPLEX Rx Instructions: 20 unit subcutaneously qam and 50 units bedtime Farxiga 10 mg tablet 10 mg PO DAILY glyburide 5 mg tablet 5 mg PO BID ferrous sulfate 325 mg (65 mg iron) tablet 325 mg PO BID gabapentin 300 mg capsule 300 mg PO BID atorvastatin 40 mg tablet 40 mg PO DAILY Qty: 90 3RF clopidogrel 75 mg tablet 75 mg PO DAILY Qty: 90 3RF fenofibrate 160 mg tablet 160 mg PO DAILY Qty: 90 1RF gemfibrozil 600 mg tablet 600 mg PO BID Qty: 180 1RF atenolol 25 mg tablet 25 mg PO DAILY Qty: 90 1RF potassium chloride 20 mEq tablet,ER particles/crystals See Rx Instructions .ROUTE .COMPLEX Qty: 135 3RF Dose Instruction: TAKE 1 AND 1/2 TABLETS BY MOUTH ONCE DAILY Rx Instructions: TAKE 1 AND 1/2 TABLETS BY MOUTH ONCE DAILY furosemide 40 mg tablet See Rx Instructions .ROUTE .COMPLEX Qty: 45 3RF Dose Instruction: TAKE ONE (1) AND ONE HALF (1/2) TABLETS BY MOUTH NEEDED Rx Instructions: TAKE ONE (1) AND ONE HALF (1/2) TABLETS BY MOUTH NEEDED omega 7-lgz-glq-fish oil [Fish Oil] 1,200 (144-216) mg Capsule 1 cap PO BID Digox 125 mcg (0.125 mg) tablet 125 mcg PO DAILY Qty: 30 0RF Rx Instructions: Do not take any digoxin for the next 3 days and May to 1 pill 125 mcg daily Discharge Orders: Discharge ED (Routine); Ordered 06/03/22 Ordered By: Coral Lara Referrals: Dilip Solano, LOGISTICS ENGINEERING MANAGER [Primary Care Provider] - Discharge Diet: Advance as tolerated Discharge Activity: Resume usual activity Patient Instructions: Perla Catheter Placement and Care (ED) Coding Level of Care Code ED Production Supv for Soheila Fwsanty Exam Comprehensive
--- NOTE | 2022-06-03 04:15 | PC.NURSE ---
Pt's indwelling perla catheter removed, dark clots came out of penis as perla was removed. Pt tolerated well. New perla placed, flushed initially with 50cc sterile saline, no urine return. Flushed a second time with 30cc sterile saline, perla started draining dark clary colored urine.
[2022-06-03 05:03] VITALS: BP 138/79; PULSE 72; RESP 18; O2SAT 97
== END 2022-06-03 05:04 | disposition home or self-care (01) ==
PROVIDERS: Emergency Provider Emergency Medicine; PCP Nurse Practitioner
DX: T83.098A Other mechanical complication of other urinary catheter, initial encounter (principal); R33.9 Retention of urine, unspecified; Z79.82 Long term (current) use of aspirin; Z79.4 Long term (current) use of insulin; Z79.02 Long term (current) use of antithrombotics/antiplatelets; I25.10 Atherosclerotic heart disease of native coronary artery without angina pectoris; E11.9 Type 2 diabetes mellitus without complications; I25.2 Old myocardial infarction; Z87.891 Personal history of nicotine dependence; Y73.8 Miscellaneous gastroenterology and urology devices associated with adverse incidents, not elsewhere classified
CPT/HCPCS: 51702; 99283

== ENCOUNTER 2022-06-05 08:26 | Emergency (ER) | payer MEDICARE, MEDICAID, SELFPAY ==
[2022-06-05 08:28] VITALS: BP 130/67; PULSE 83; RESP 18; TEMP 36.5; O2SAT 93; BMI 25.8
--- NOTE | 2022-06-05 08:38 | W.ED.MALEGU ---
HPI - Male Genitourinary General: Chief complaint: Urogenital-Male Stated complaint: cath issues Time Seen by Provider: 06/05/22 08:27 Source: patient and family () Mode of arrival: wheelchair Limitations: no limitations History of Present Illness: Patient is a 71-year-old male who presents to ED today along with his for concerns of his catheter is not draining appropriately. Catheter was placed last Sunday secondary to urinary retention. Following catheter insertion he had some bleeding which in turn caused the catheter to clog. He was seen at our facility on Sunday had the catheter changed out for a larger one. Bladder was irrigated and catheter seem to be draining appropriately at discharge. states bleeding has stopped but noticed this morning she felt like the catheter was not draining well so she tried to irrigate it and could not. Patient states he is not in any discomfort currently. He sees urology at [facility]. Complaint: other (perla cath problem) Onset (ago): hour(s) Relieving factors: none Exacerbating factors: none Context: indwelling catheter Associated symptoms: Reports no associated symptoms; Deny nausea or vomiting Review of Systems Const: Denies: fever(s), chills, body aches, fatigue or malaise Card: Denies: chest pain Resp: Denies: dyspnea GI: Denies: abdominal pain, nausea, vomiting or change in bowel habits : Reports: other (perla not draining) Musc: Reports: extremity swelling (chronic bilateral LE lymphedema); Denies: neck pain, back pain, extremity pain or joint pain Skin/Breast: Denies: rash Neuro: Denies: headache(s) PFS ED PFSH: Medical History CAD (coronary artery disease) Diabetes mellitus Former smoker History of ID (myocardial infarction) Lymphedema PAD (peripheral artery disease) Phimosis Unable to ambulate Venous insufficiency Surgical History S/P appendectomy S/P peripheral artery angioplasty with stent placement Family History Brother Diabetes Mother Diabetes Sister Diabetes Father Stroke Social History Smoking and tobacco status: former smoker Quit status (tobacco): has quit using tobacco Year quit tobacco: 4 ya Alcohol intake: former Lives independently: No Household members: spouse Marital status: Current occupational status: disabled Physical Exam Const: COMMON NORMALS: no acute distress, patient oriented x3, no limitations and alert GENERAL APPEARANCE: cooperative ORIENTATION/CONSCIOUSNESS: Yes awake, Yes oriented to person, Yes oriented to place and Yes oriented to time Resp: COMMON NORMALS: normal respiratory effort and clear to auscultation bilaterally AUSCULTATION: clear to auscultation bilaterally Cardio: COMMON NORMALS: regular rate and regular rhythm RATE: regular rate RHYTHM: regular rhythm GI: COMMON NORMALS: Normal to inspection, nondistended, normoactive bowel sounds present, Soft to palpation, non-tender and no masses INSPECTION: Yes normal to inspection PALPATION: Yes Soft to palpation : COMMON NORMALS: Yes no CVA tenderness BLADDER/KIDNEY EXAM: Yes catheter in place Catheter type (Male): urethral and Yes no CVA tenderness OTHER: catheter with clear/light yellow urine throughout tubing and in perla bag; seems to be functioning at this time Back/Pelvis: COMMON NORMALS: no CVA tenderness Extremity: OTHER: chronic severe bilateral LE lymphedema; legs are wrapped Neuro: SUNNY COMA SCALE: document GCS findings [place] coma scale eye opening: Spontaneous [place] coma scale verbal response: Orientated [place] coma scale motor response: Obey commands Sunny coma scale total score: 15 COMMON NORMALS: patient oriented x3 SENSORIUM/ORIENTATION: Yes alert, Yes oriented to person, Yes oriented to place and Yes oriented to time Course ED course: Perla seems to be draining. Will have RN bladder scan him and flush/irrigate catheter just for confirmation. Vital Signs: Vital signs: Vital Signs Temperature 97.7 F 06/05/22 08:28 Pulse Rate 83 06/05/22 08:28 Respiratory Rate 18 06/05/22 08:28 Blood Pressure 130/67 06/05/22 08:28 Pulse Oximetry 93 06/05/22 08:28 Oxygen Delivery Me thod 06/05/22 08:28 MDM - Male Medical Decision Making Bladder scanner with 33ml. RN was able to flush catheter easily and return was normal. There is nothing we need to do further from our end as catheter seems to be functioning perfectly. Recommend follow up with his urologist. Discharge Plan Discharge Patient Disposition: Home Clinical Impression: Perla catheter problem Qualifiers: Encounter type: initial encounter Qualified Code(s): T83.9XXA - Unspecified complication of genitourinary prosthetic device, implant and graft, initial encounter Condition: Stable Prescriptions: No Action bisacodyl 5 mg tablet 5 mg PO DAILY PRN (Reason: Constipation) folic acid-vit B6-vit B12 [Folbee] 2.5-25-1 mg tablet 1 tab PO DAILY ascorbic acid (vitamin C) 500 mg capsule 500 mg PO DAILY aspirin 81 mg tablet,chewable 81 mg PO DAILY isosorbide mononitrate 30 mg tablet extended release 24 hr 30 mg PO DAILY Qty: 90 3RF Lantus U-100 Insulin 100 unit/mL solution See Rx Instructions .ROUTE .COMPLEX Rx Instructions: 20 unit subcutaneously qam and 50 units bedtime Farxiga 10 mg tablet 10 mg PO DAILY glyburide 5 mg tablet 5 mg PO BID ferrous sulfate 325 mg (65 mg iron) tablet 325 mg PO BID gabapentin 300 mg capsule 300 mg PO BID atorvastatin 40 mg tablet 40 mg PO DAILY Qty: 90 3RF clopidogrel 75 mg tablet 75 mg PO DAILY Qty: 90 3RF fenofibrate 160 mg tablet 160 mg PO DAILY Qty: 90 1RF gemfibrozil 600 mg tablet 600 mg PO BID Qty: 180 1RF atenolol 25 mg tablet 25 mg PO DAILY Qty: 90 1RF potassium chloride 20 mEq tablet,ER particles/crystals See Rx Instructions .ROUTE .COMPLEX Qty: 135 3RF Dose Instruction: TAKE 1 AND 1/2 TABLETS BY MOUTH ONCE DAILY Rx Instructions: TAKE 1 AND 1/2 TABLETS BY MOUTH ONCE DAILY furosemide 40 mg tablet See Rx Instructions .ROUTE .COMPLEX Qty: 45 3RF Dose Instruction: TAKE ONE (1) AND ONE HALF (1/2) TABLETS BY MOUTH NEEDED Rx Instructions: TAKE ONE (1) AND ONE HALF (1/2) TABLETS BY MOUTH NEEDED omega 0-djv-act-fish oil [Fish Oil] 1,200 (144-216) mg Capsule 1 cap PO BID Digox 125 mcg (0.125 mg) tablet 125 mcg PO DAILY Qty: 30 0RF Rx Instructions: Do not take any digoxin for the next 3 days and May to 1 pill 125 mcg daily Discharge Orders: Discharge ED (Routine); Ordered 06/05/22 Ordered By: Ligia Teixeira Referrals: Dilip Solano, MALOU [Primary Care Provider] - Patient Instructions: Perla Catheter Placement and Care (ED) Activity Restrictions/Additional Instructions: At this time your Perla catheter seems to be functioning normally. Please follow-up with your urologist this week for re-evaluation. You may return to the emergency department if catheter no longer seems to be draining, you notice a large amount of blood in the tubing or bag, abdominal pain, fevers, flank pains, or any other concerns you may have. Coding Level of Care Code ED Juvenile Officer for Chg Fwd Exam Detailed
[2022-06-05 09:10] VITALS: BP 123/59; PULSE 79; O2SAT 98
== END 2022-06-05 09:10 | disposition home or self-care (01) ==
PROVIDERS: Emergency Provider Physician Assistant; PCP Nurse Practitioner
DX: T83.9XXA Unspecified complication of genitourinary prosthetic device, implant and graft, initial encounter (principal); Z79.82 Long term (current) use of aspirin; Z79.4 Long term (current) use of insulin; Z79.02 Long term (current) use of antithrombotics/antiplatelets; I25.10 Atherosclerotic heart disease of native coronary artery without angina pectoris; E11.9 Type 2 diabetes mellitus without complications; I25.2 Old myocardial infarction; Z87.891 Personal history of nicotine dependence; Y73.8 Miscellaneous gastroenterology and urology devices associated with adverse incidents, not elsewhere classified
CPT/HCPCS: 51798; 99283

== ENCOUNTER 2022-06-21 06:00 | Outpatient (RCR) | payer MEDICARE, MEDICAID, SELFPAY | END 2022-07-18 16:41 | disposition home or self-care (01) | LOC: GOT 06:00 | PROVIDERS: PCP Nurse Practitioner; Visit Provider Thoracic Surgery (Cardiothoracic Vascular Surgery) | DX: I89.0 Lymphedema, not elsewhere classified (principal) | CPT/HCPCS: 97140 ==

== ENCOUNTER 2022-07-18 16:25 | Emergency (ER) | payer MEDICARE, MEDICAID, SELFPAY ==
[2022-07-18 16:28] VITALS: BP 121/61; PULSE 75; RESP 16; TEMP 36.4; O2SAT 96
[2022-07-18 17:59] LABS: Basophils # 0.1 10^3/uL (0.0-0.1); Basophils % 0.9 %; Eosinophils # 0.3 10^3/uL (0.0-0.8); Eosinophils % 3.3 %; Hematocrit 23.3 % (42.0-52.0); Hemoglobin 7.1 g/dL (11.7-16.6); Lymphocytes # 1.8 10^3/uL (0.8-4.8); Lymphocytes % 20.7 %; Mean Corpuscular HGB Conc 30.5 g/dL (30.0-36.0); Mean Corpuscular Hemoglobin 34.5 pg (28.0-34.0); Mean Corpuscular Volume 113.1 fl (80-94); Mean Platelet Volume 9.6 fL (7.4-10.4); Monocytes # 0.7 10^3/uL (0.2-0.9); Monocytes % 7.8 %; Neutrophils # 5.93 10^3/uL (1.8-7.7); Neutrophils % 66.5 %; Nucleated Red Blood Cells % 0 %; Platelet Count 405 10^3/cmm (130-400); Red Blood Count 2.06 10^6/uL (4.1-5.3); Red Cell Distribution Width 15.2 % (12.1-15.1); White Blood Count 8.9 10^3/uL (4.0-10.0)
[2022-07-18 18:13] LABS: Alanine Aminotransferase 9 U/L (0-41); Albumin Level 3.9 g/dL (3.5-5.2); Alkaline Phosphatase 110 U/L (40-130); Anion Gap 18.3 (5-19); Aspartate Amino Transferase 24 U/L (0-40); Blood Urea Nitrogen 44 mg/dL (8-23); Calcium 10.5 mg/dL (8.5-10.5); Carbon Dioxide 24 mmol/L (22-29); Chloride 95 mmol/L (98-107); Globulin 3.4 g/dL (1.3-4.6); Glucose 337 mg/dL (65-115); Osmolality Calculated 302 mOsm/kg (285-295); Potassium 3.3 mmol/L (3.5-5.1); Sodium 134 mmol/L (136-145); Total Bilirubin 0.2 mg/dL (0.15-1.2); Total Protein 7.3 g/dL (6.6-8.7)
== END 2022-07-18 21:06 | disposition left against medical advice (07) ==
PROVIDERS: Emergency Provider Family Medicine; PCP Nurse Practitioner
DX: Z53.21 Procedure and treatment not carried out due to patient leaving prior to being seen by health care provider (principal)
CPT/HCPCS: 36415; 80053; 80162; 85025

== ENCOUNTER 2022-07-19 16:06 | Emergency (ER) | payer MEDICARE, MEDICAID, SELFPAY ==
[2022-07-19] VITALS (9 sets, daily range): BP systolic 92–125; BP diastolic 39–69; PULSE 71–84; RESP 16–19; TEMP 36.8–37.2; O2SAT 94–96; BMI 25.8
--- NOTE | 2022-07-19 19:33 | W.ED.GENADLT ---
Documented by User: Parth Gomez MD 07/30/22 21:37 HPI - General Adult General: Chief complaint: General Medical Stated complaint: Weakness Time Seen by Provider: 07/19/22 19:33 History of Present Illness: Mr. Hardin is a 71-year-old gentleman with complex past medical history including peripheral vascular disease, CAD, lymphedema, diabetes, anemia presenting to the emergency department for generalized illness with concern over the low blood counts. He reports few weeks of gradually increasing fatigue and malaise. He has a indwelling catheter and noticed blood in the catheter though this has cleared. Denies blood in stool or hematemesis, denies other source of bleeding. He has had a history of anemia in the past. Intensity for symptoms is moderate. Course has worsened. No other specific changes in health, exacerbating, or alleviating factors identified. Onset (ago): week(s) Severity: moderate Relieving factors: none Exacerbating factors: movement Associated symptoms: Reports malaise and weakness Review of Systems General: Reports: 10 or more systems reviewed and unremarkable except in HPI and below Const: Reports: malaise PFSH ED PFSH: Medical History CAD (coronary artery disease) Diabetes mellitus Former smoker History of MA (myocardial infarction) Lymphedema PAD (peripheral artery disease) Phimosis Unable to ambulate Venous insufficiency Surgical History S/P appendectomy S/P peripheral artery angioplasty with stent placement Family History Brother Diabetes Mother Diabetes Sister Diabetes Father Stroke Social History Smoking and tobacco status: former smoker Quit status (tobacco): has quit using tobacco Year quit tobacco: 4 ya Alcohol intake: former Lives independently: No Household members: spouse Marital status: Current occupational status: disabled Physical Exam Const: COMMON NORMALS: alert GENERAL APPEARANCE: cooperative, well developed and ill appearing (Chronically) HENMT: COMMON NORMALS: normocephalic and atraumatic HEAD & SCALP: normocephalic and atraumatic Eye: COMMON NORMALS: conjunctivae normal CONJUNCTIVA: Yes conjunctivae normal SCLERA: sclerae normal Neck/C-Spine: COMMON NORMALS: supple GENERAL: Yes trachea midline Resp: COMMON NORMALS: clear to auscultation bilaterally EFFORT & INSPECTION: Yes able to speak in complete sentences AUSCULTATION: clear to auscultation bilaterally Cardio: COMMON NORMALS: regular rate and regular rhythm RATE: regular rate RHYTHM: regular rhythm GI: COMMON NORMALS: Soft to palpation PALPATION: Yes Soft to palpation and No Tenderness to palpation present (GI) Extremity: NARRATIVE EXTREMITY EXAM: Edema in wraps, reportedly improved, no reported wounds GENERAL: Yes normal exam except as noted and No edema Neuro: COMMON NORMALS: moves all extremities SENSORIUM/ORIENTATION: Yes alert and No Orientation impaired Psych: COMMON NORMALS: mental status grossly normal and Normal thought process present THOUGHT PROCESS: Normal thought process present Course Vital Signs: Vital signs: Vital Signs Temperature 98.3 F 07/19/22 22:00 Pulse Rate 68 07/20/22 01:09 Respiratory Rate 16 07/20/22 01:09 Blood Pressure 113/46 07/20/22 01:09 Pulse Oximetry 95 07/20/22 01:09 Oxygen Delivery Me thod 07/19/22 16:39 [facility] - General Adult Medical Decision Making 71-year-old gentleman presenting with generalized weakness. Exam is nonfocal. Labs notable for macrocytic anemia. No significant metabolic derangement compared to prior. Likely UTI present. Patient given analgesia and antibiotic. Consented for blood transfusion and transfusion ordered. Handed off to Dr. Lara pending completion of transfusion and reassessment with likely plan for discharge. Patient presents here with anemia and he does have chronic anemia I did attempt to do a rectal exam he refused he states he just wants to go home did try to give him a second unit of blood and he just denied the blood and states that he feels much improved he wants to just go home we will discharge him at this point he is to follow-up with PCP and have his blood rechecked. Medical Records I reviewed the patient's medical records. Lab Data I reviewed the patient's lab results. 07/19/22 20:03 07/19/22 20:03 Laboratory Results WBC 7.7 10^3/uL (4.0-10.0) 07/19/22 20:03 RBC 1.95 10^6/uL (4.1-5.3) L 07/19/22 20:03 Hgb 6.7 g/dL (11.7-16.6) L 07/19/22 20:03 Hct 22.1 % (42.0-52.0) L 07/19/22 20:03 MCV 113.3 fl (80-94) H 07/19/22 20:03 MCH 34.4 pg (28.0-34.0) H 07/19/22 20:03 MCHC 30.3 g/dL (30.0-36.0) 07/19/22 20:03 RDW 15.6 % (12.1-15.1) H 07/19/22 20:03 Plt Count 397 10^3/cmm (130-400) 07/19/22 20:03 MPV 9.7 fL (7.4-10.4) 07/19/22 20:03 Neut % (Auto) 74.3 % 07/19/22 20:03 Lymph % (Auto) 14.5 % 07/19/22 20:03 Butts % (Auto) 8.8 % 07/19/22 20:03 Eos % (Auto) 1.3 % 07/19/22 20:03 Baso % (Auto) 0.8 % 07/19/22 20:03 Neut # (Auto) 5.72 10^3/uL (1.8-7.7) 07/19/22 20:03 Lymph # (Auto) 1.1 10^3/uL (0.8-4.8) 07/19/22 20:03 Butts # (Auto) 0.7 10^3/uL (0.2-0.9) 07/19/22 20:03 Eos # (Auto) 0.1 10^3/uL (0.0-0.8) 07/19/22 20:03 Baso # (Auto) 0.1 10^3/uL (0.0-0.1) 07/19/22 20:03 Nucleated RBC % (auto) 0 % 07/19/22 20:03 Nucleated RBCs # 0.0 /100WBC 07/19/22 20:03 Sodium 134 mmol/L (136-145) L 07/19/22 20:03 Potassium 3.6 mmol/L (3.5-5.1) 07/19/22 20:03 Chloride 97 mmol/L (98-107) L 07/19/22 20:03 Carbon Dioxide 23 mmol/L (22-29) 07/19/22 20:03 Anion Gap 17.6 (5-19) 07/19/22 20:03 BUN 39 mg/dL (8-23) H 07/19/22 20:03 Creatinine 1.2 mg/dL (0.7-1.2) 07/19/22 20:03 GFR Calculation Not Reportable 07/19/22 20:03 Glucose 295 mg/dL (65-115) H 07/19/22 20:03 Calculated Osmolality 298 mOsm/kg (285-295) H 07/19/22 20:03 Calcium 9.6 mg/dL (8.5-10.5) 07/19/22 20:03 NT-Pro-B Natriuret Pep 303 pg/mL (0-125) H 07/19/22 20:03 Urine Color Yellow (Yellow) 07/19/22 20:35 Urine Appearance Sl hazy (CLEAR) A 07/19/22 20:35 Urine pH 7 (5-7) 07/19/22 20:35 Ur Specific [place] 1.010 (1.005-1.030) 07/19/22 20:35 Urine Protein Neg (Negative) 07/19/22 20:35 Urine Glucose (UA) 4+ (Normal) H 07/19/22 20:35 Urine Ketones Negative (Negative) 07/19/22 20:35 Urine Blood 3+ (Negative) H 07/19/22 20:35 Urine Nitrate Positive (Negative) H 07/19/22 20:35 Urine Bilirubin Neg (Negative) 07/19/22 20:35 Urine Urobilinogen Norm mg/dL (Negative) 07/19/22 20:35 Ur Leukocyte Esterase 2+ (Negative) H 07/19/22 20:35 Urine RBC 0-4 /hpf (0-2) H 07/19/22 20:35 Urine WBC 25-40 /hpf (0-5) H 07/19/22 20:35 Ur Squamous Epith Cells 0-4 /hpf (0-5) H 07/19/22 20:35 Amorphous Sediment Not Reportable 07/19/22 20:35 Urine Bacteria 4+ /hpf (NONE) H 03/01/23 20:35 Blood Type O Positive 07/19/22 20:03 Rho(D) Type Positive 07/19/22 20:03 Antibody Screen Negative 07/19/22 20:03 Crossmatch See Detail 07/19/22 20:03 Discharge Plan Discharge Patient Disposition: Home Clinical Impression: Signs and symptoms of anemia, Acute on chronic anemia, Acute UTI Condition: Stable Prescriptions: New ciprofloxacin HCl 500 mg tablet 500 mg PO BID Qty: 20 0RF No Action bisacodyl 5 mg tablet 5 mg PO DAILY PRN (Reason: Constipation) folic acid-vit B6-vit B12 [Folbee] 2.5-25-1 mg tablet 1 tab PO DAILY ascorbic acid (vitamin C) 500 mg capsule 500 mg PO DAILY aspirin 81 mg tablet,chewable 81 mg PO DAILY isosorbide mononitrate 30 mg tablet extended release 24 hr 30 mg PO DAILY Qty: 90 3RF Lantus U-100 Insulin 100 unit/mL solution See Rx Instructions .ROUTE .COMPLEX Rx Instructions: 20 unit subcutaneously qam and 50 units bedtime Farxiga 10 mg tablet 10 mg PO DAILY glyburide 5 mg tablet 5 mg PO BID ferrous sulfate 325 mg (65 mg iron) tablet 325 mg PO BID gabapentin 300 mg capsule 300 mg PO BID atorvastatin 40 mg tablet 40 mg PO DAILY Qty: 90 3RF gemfibrozil 600 mg tablet 600 mg PO BID Qty: 180 1RF potassium chloride 20 mEq tablet,ER particles/crystals See Rx Instructions .ROUTE .COMPLEX Qty: 135 3RF Dose Instruction: TAKE 1 AND 1/2 TABLETS BY MOUTH ONCE DAILY Rx Instructions: TAKE 1 AND 1/2 TABLETS BY MOUTH ONCE DAILY furosemide 40 mg tablet See Rx Instructions .ROUTE .COMPLEX Qty: 45 3RF Dose Instruction: TAKE ONE (1) AND ONE HALF (1/2) TABLETS BY MOUTH NEEDED Rx Instructions: TAKE ONE (1) AND ONE HALF (1/2) TABLETS BY MOUTH NEEDED clopidogrel 75 mg tablet 75 mg PO DAILY Qty: 90 0RF Rx Instructions: MUST have follow-up for further refills Digox 125 mcg (0.125 mg) tablet 125 mcg PO DAILY Qty: 90 0RF fenofibrate 160 mg tablet 160 mg PO DAILY Qty: 90 1RF atenolol 25 mg tablet 25 mg PO DAILY Qty: 90 1RF omega 8-xet-owe-fish oil [Fish Oil] 1,200 (144-216) mg Capsule 1 cap PO BID Discharge Orders: Discharge ED (Routine); Ordered 07/19/22 Ordered By: Coral Lara Referrals: Dilip Solano FNP [Primary Care Provider] - Discharge Diet: Usual diet Discharge Activity: Increase activity as tolerated Patient Instructions: Urinary Tract Infection in Men (ED), Anemia (ED), Blood Transfusion (DC) Activity Restrictions/Additional Instructions: Thank you for visiting the emergency department. You were seen and evaluated for generalized illness and abnormal labs. The exact cause of your anemia is unclear though may be secondary to underlying medical conditions. You received a transfusion in the emergency department. You were additionally found to have a urinary tract infection which will be treated with antibiotics. Please follow-up with your primary care provider. Return to the emergency department for evidence of bleeding, evidence of transfusion reaction, or anything else that you are concerned about and feel needs emergency department evaluation. Coding Level of Care Code ED Dentofacial Orthopedics Dentist for Chg Fwd Documented by User: Coral Lara MD 07/20/22 00:58 HPI - General Adult General: Chief complaint: General Medical Stated complaint: Weakness Time Seen by Provider: 07/19/22 19:33 [facility] [place] ED PFSH: Medical History CAD (coronary artery disease) Diabetes mellitus Former smoker History of MA (myocardial infarction) Lymphedema PAD (peripheral artery disease) Phimosis Unable to ambulate Venous insufficiency Surgical History S/P appendectomy S/P peripheral artery angioplasty with stent placement Family History Brother Diabetes Mother Diabetes Sister Diabetes Father Stroke Social History Smoking and tobacco status: former smoker Quit status (tobacco): has quit using tobacco Year quit tobacco: 4 ya Alcohol intake: former Lives independently: No Household members: spouse Marital status: Current occupational status: disabled Course Vital Signs: Vital signs: Vital Signs Temperature 98.3 F 07/19/22 22:00 Pulse Rate 68 07/20/22 01:09 Respiratory Rate 16 07/20/22 01:09 Blood Pressure 113/46 07/20/22 01:09 Pulse Oximetry 95 07/20/22 01:09 Oxygen Delivery Me thod 07/19/22 16:39 MDM - General Adult Medical Decision Making Patient presents here with anemia and he does have chronic anemia I did attempt to do a rectal exam he refused he states he just wants to go home did try to give him a second unit of blood and he just denied the blood and states that he feels much improved he wants to just go home we will discharge him at this point he is to follow-up with PCP and have his blood rechecked. Lab Data 07/19/22 20:03 07/19/22 20:03 Laboratory Results WBC 7.7 10^3/uL (4.0-10.0) 07/19/22 20:03 RBC 1.95 10^6/uL (4.1-5.3) L 07/19/22 20:03 Hgb 6.7 g/dL (11.7-16.6) L 07/19/22 20:03 Hct 22.1 % (42.0-52.0) L 07/19/22 20:03 MCV 113.3 fl (80-94) H 07/19/22 20:03 MCH 34.4 pg (28.0-34.0) H 07/19/22 20:03 MCHC 30.3 g/dL (30.0-36.0) 07/19/22 20:03 RDW 15.6 % (12.1-15.1) H 07/19/22 20:03 Plt Count 397 10^3/cmm (130-400) 07/19/22 20:03 MPV 9.7 fL (7.4-10.4) 07/19/22 20:03 Neut % (Auto) 74.3 % 07/19/22 20:03 Lymph % (Auto) 14.5 % 07/19/22 20:03 Butts % (Auto) 8.8 % 07/19/22 20:03 Eos % (Auto) 1.3 % 07/19/22 20:03 Baso % (Auto) 0.8 % 07/19/22 20:03 Neut # (Auto) 5.72 10^3/uL (1.8-7.7) 07/19/22 20:03 Lymph # (Auto) 1.1 10^3/uL (0.8-4.8) 07/19/22 20:03 Butts # (Auto) 0.7 10^3/uL (0.2-0.9) 07/19/22 20:03 Eos # (Auto) 0.1 10^3/uL (0.0-0.8) 07/19/22 20:03 Baso # (Auto) 0.1 10^3/uL (0.0-0.1) 07/19/22 20:03 Nucleated RBC % (auto) 0 % 07/19/22 20:03 Nucleated RBCs # 0.0 /100WBC 07/19/22 20:03 Sodium 134 mmol/L (136-145) L 07/19/22 20:03 Potassium 3.6 mmol/L (3.5-5.1) 07/19/22 20:03 Chloride 97 mmol/L (98-107) L 07/19/22 20:03 Carbon Dioxide 23 mmol/L (22-29) 07/19/22 20:03 Anion Gap 17.6 (5-19) 07/19/22 20:03 BUN 39 mg/dL (8-23) H 07/19/22 20:03 Creatinine 1.2 mg/dL (0.7-1.2) 07/19/22 20:03 GFR Calculation Not Reportable 07/19/22 20:03 Glucose 295 mg/dL (65-115) H 07/19/22 20:03 Calculated Osmolality 298 mOsm/kg (285-295) H 07/19/22 20:03 Calcium 9.6 mg/dL (8.5-10.5) 07/19/22 20:03 NT-Pro-B Natriuret Pep 303 pg/mL (0-125) H 07/19/22 20:03 Urine Color Yellow (Yellow) 07/19/22 20:35 Urine Appearance Sl hazy (CLEAR) A 07/19/22 20:35 Urine pH 7 (5-7) 07/19/22 20:35 Ur Specific [place] 1.010 (1.005-1.030) 07/19/22 20:35 Urine Protein Neg (Negative) 07/19/22 20:35 Urine Glucose (UA) 4+ (Normal) H 07/19/22 20:35 Urine Ketones Negative (Negative) 07/19/22 20:35 Urine Blood 3+ (Negative) H 07/19/22 20:35 Urine Nitrate Positive (Negative) H 07/19/22 20:35 Urine Bilirubin Neg (Negative) 07/19/22 20:35 Urine Urobilinogen Norm mg/dL (Negative) 07/19/22 20:35 Ur Leukocyte Esterase 2+ (Negative) H 07/19/22 20:35 Urine RBC 0-4 /hpf (0-2) H 07/19/22 20:35 Urine WBC 25-40 /hpf (0-5) H 07/19/22 20:35 Ur Squamous Epith Cells 0-4 /hpf (0-5) H 07/19/22 20:35 Amorphous Sediment Not Reportable 07/19/22 20:35 Urine Bacteria 4+ /hpf (NONE) H 07/19/22 20:35 Blood Type O Positive 07/19/22 20:03 Rho(D) Type Positive 07/19/22 20:03 Antibody Screen Negative 07/19/22 20:03 Crossmatch See Detail 07/19/22 20:03 Discharge Plan Discharge Patient Disposition: Home Clinical Impression: Signs and symptoms of anemia, Acute on chronic anemia, Acute UTI Condition: Stable Prescriptions: New ciprofloxacin HCl 500 mg tablet 500 mg PO BID Qty: 20 0RF No Action bisacodyl 5 mg tablet 5 mg PO DAILY PRN (Reason: Constipation) folic acid-vit B6-vit B12 [Folbee] 2.5-25-1 mg tablet 1 tab PO DAILY ascorbic acid (vitamin C) 500 mg capsule 500 mg PO DAILY aspirin 81 mg tablet,chewable 81 mg PO DAILY isosorbide mononitrate 30 mg tablet extended release 24 hr 30 mg PO DAILY Qty: 90 3RF Lantus U-100 Insulin 100 unit/mL solution See Rx Instructions .ROUTE .COMPLEX Rx Instructions: 20 unit subcutaneously qam and 50 units bedtime Farxiga 10 mg tablet 10 mg PO DAILY glyburide 5 mg tablet 5 mg PO BID ferrous sulfate 325 mg (65 mg iron) tablet 325 mg PO BID gabapentin 300 mg capsule 300 mg PO BID atorvastatin 40 mg tablet 40 mg PO DAILY Qty: 90 3RF gemfibrozil 600 mg tablet 600 mg PO BID Qty: 180 1RF potassium chloride 20 mEq tablet,ER particles/crystals See Rx Instructions .ROUTE .COMPLEX Qty: 135 3RF Dose Instruction: TAKE 1 AND 1/2 TABLETS BY MOUTH ONCE DAILY Rx Instructions: TAKE 1 AND 1/2 TABLETS BY MOUTH ONCE DAILY furosemide 40 mg tablet See Rx Instructions .ROUTE .COMPLEX Qty: 45 3RF Dose Instruction: TAKE ONE (1) AND ONE HALF (1/2) TABLETS BY MOUTH NEEDED Rx Instructions: TAKE ONE (1) AND ONE HALF (1/2) TABLETS BY MOUTH NEEDED clopidogrel 75 mg tablet 75 mg PO DAILY Qty: 90 0RF Rx Instructions: MUST have follow-up for further refills Digox 125 mcg (0.125 mg) tablet 125 mcg PO DAILY Qty: 90 0RF fenofibrate 160 mg tablet 160 mg PO DAILY Qty: 90 1RF atenolol 25 mg tablet 25 mg PO DAILY Qty: 90 1RF omega 3-cff-wki-fish oil [Fish Oil] 1,200 (144-216) mg Capsule 1 cap PO BID Discharge Orders: Discharge ED (Routine); Ordered 07/19/22 Ordered By: Coral Lara Referrals: Dilip Solano, [employer] [Primary Care Provider] - Discharge Diet: Usual diet Discharge Activity: Increase activity as tolerated Patient Instructions: Urinary Tract Infection in Men (ED), Anemia (ED), Blood Transfusion (DC) Activity Restrictions/Additional Instructions: Thank you for visiting the emergency department. You were seen and evaluated for generalized illness and abnormal labs. The exact cause of your anemia is unclear though may be secondary to underlying medical conditions. You received a transfusion in the emergency department. You were additionally found to have a urinary tract infection which will be treated with antibiotics. Please follow-up with your primary care provider. Return to the emergency department for evidence of bleeding, evidence of transfusion reaction, or anything else that you are concerned about and feel needs emergency department evaluation. Coding Level of Care Code ED Dentofacial Orthopedics Dentist for Soheila Harry
[2022-07-19 20:19] LABS: Basophils # 0.1 10^3/uL (0.0-0.1); Basophils % 0.8 %; Eosinophils # 0.1 10^3/uL (0.0-0.8); Eosinophils % 1.3 %; Hematocrit 22.1 % (42.0-52.0); Hemoglobin 6.7 g/dL (11.7-16.6); Lymphocytes # 1.1 10^3/uL (0.8-4.8); Lymphocytes % 14.5 %; Mean Corpuscular HGB Conc 30.3 g/dL (30.0-36.0); Mean Corpuscular Hemoglobin 34.4 pg (28.0-34.0); Mean Corpuscular Volume 113.3 fl (80-94); Mean Platelet Volume 9.7 fL (7.4-10.4); Monocytes # 0.7 10^3/uL (0.2-0.9); Monocytes % 8.8 %; Neutrophils # 5.72 10^3/uL (1.8-7.7); Neutrophils % 74.3 %; Nucleated Red Blood Cells % 0 %; Platelet Count 397 10^3/cmm (130-400); Red Blood Count 1.95 10^6/uL (4.1-5.3); Red Cell Distribution Width 15.6 % (12.1-15.1); White Blood Count 7.7 10^3/uL (4.0-10.0)
[2022-07-19 20:44] LABS: Anion Gap 17.6 (5-19); Blood Urea Nitrogen 39 mg/dL (8-23); Calcium 9.6 mg/dL (8.5-10.5); Carbon Dioxide 23 mmol/L (22-29); Chloride 97 mmol/L (98-107); Glucose 295 mg/dL (65-115); NT Pro B Type Natriuretic Pept 303 pg/mL (0-125); Osmolality Calculated 298 mOsm/kg (285-295); Potassium 3.6 mmol/L (3.5-5.1); Sodium 134 mmol/L (136-145)
[2022-07-19 21:12] LABS: Bilirubin Urine Neg (Negative); Blood Urine 3+ (Negative); Glucose Urine UA 4+ (Normal); Ketones Urine Negative (Negative); Nitrate Urine Positive (Negative); Protein Urine Neg (Negative); Urine Appearance SL Hazy (CLEAR); Urine Color Yellow (Yellow); pH Urine 7 (5-7)
[2022-07-19 21:13] LABS: Add Urine Culture? Yes; Add Urine Microscopic? YES; Bacteria Urine 4+ /hpf; Leukocyte Esterase Urine 2+ (Negative); RBC Urine 0-4 /hpf (0-2); Squamous Epithelial Cell Urine 0-4 /hpf (0-5); Urobilinogen Urine Norm (Negative); WBC Urine 25-40 /hpf (0-5)
[2022-07-19] MEDS: acetaminophen 500 mg Tablet 1000 MG PO (22:04)
[2022-07-19] MEDS: ciprofloxacin 500 mg Tablet PO (22:32)
[2022-07-20 00:15] VITALS: BP 97/43; PULSE 70
[2022-07-20 01:09] VITALS: BP 113/46; PULSE 68; RESP 16; O2SAT 95
--- NOTE | 2022-07-20 01:10 | PC.NURSE ---
Two units of blood were ordered for the patient. Patient refused second bag of PRBC as nurse was going to hang it. Dr Lara informed pt did not want second unit of blood, pt d/c paper work was given.
== END 2022-07-20 01:11 | disposition home or self-care (01) ==
PROVIDERS: Emergency Medicine; Emergency Provider Emergency Medicine; PCP Nurse Practitioner
DX: D53.9 Nutritional anemia, unspecified (principal); N39.0 Urinary tract infection, site not specified; I25.10 Atherosclerotic heart disease of native coronary artery without angina pectoris
CPT/HCPCS: 36430; 80048; 81001; 83880; 85025; 86850; 86900; 86920; 87077; 87086; 87186; 99284; P9016

== ENCOUNTER 2022-07-31 21:30 | Emergency (ER) | payer MEDICARE, MEDICAID, SELFPAY ==
[2022-07-31 21:57] VITALS: BP 126/70; PULSE 76; RESP 16; TEMP 36.6; O2SAT 97
--- NOTE | 2022-07-31 22:59 | ED_ITS ---
HPI - Abdominal Pain General: Chief Complaint: Abdominal Pain Stated Complaint: Vomiting Blood\ABD Pain Time Seen by Provider: 07/31/22 22:44 History of Present Illness: Mr. Hardin is a 71-year-old gentleman with complex past medical history presenting to the emergency department for abdominal pain and hematemesis. He reports a few day history now of periumbilical abdominal discomfort and now dark stools with hematemesis. He previously had anemia requiring transfusion. He is seen internal medicine previously and was told that he was not an ideal candidate for endoscopy so that is not recently performed. Overall intensity symptoms is moderate. Denies other significant changes in health. No other specific changes in health, exacerbating, or alleviating factors identified. No other specific changes in health, exacerbating, or alleviating factors identified. Onset (ago): hour(s) Pain Consistency: constant Severity: moderate Quality: cramping and aching Radiation: none Migration to: no migration Exacerbating factors: nothing Relieving factors: nothing Associated Symptoms: Reports hematemesis, melena and nausea Review of Systems General: Reports: 10 or more systems reviewed and unremarkable except in HPI and below GI: Reports: nausea, hematemesis and melena PFSH ED PFSH: Medical History CAD (coronary artery disease) Diabetes mellitus Former smoker History of SC (myocardial infarction) Lymphedema PAD (peripheral artery disease) Phimosis Unable to ambulate Venous insufficiency Surgical History S/P appendectomy S/P peripheral artery angioplasty with stent placement Family History Brother Diabetes Mother Diabetes Sister Diabetes Father Stroke Social History Smoking and tobacco status: former smoker Quit status (tobacco): has quit using tobacco Year quit tobacco: 4 ya Alcohol intake: former Lives independently: No Household members: spouse Marital status: Current occupational status: disabled Physical Exam Const: COMMON NORMALS: alert GENERAL APPEARANCE: cooperative, well developed and ill appearing (Chronically) HENMT: COMMON NORMALS: normocephalic and atraumatic HEAD & SCALP: normocephalic and atraumatic Eye: COMMON NORMALS: conjunctivae normal CONJUNCTIVA: Yes conjunctivae normal SCLERA: sclerae normal Neck/C-Spine: COMMON NORMALS: supple GENERAL: Yes trachea midline Resp: COMMON NORMALS: clear to auscultation bilaterally EFFORT & INSPECTION: Yes able to speak in complete sentences AUSCULTATION: clear to auscultation bilaterally Cardio: COMMON NORMALS: regular rate and regular rhythm RATE: regular rate RHYTHM: regular rhythm GI: COMMON NORMALS: Soft to palpation PALPATION: Yes Soft to palpation, Yes Tenderness to palpation present (GI), No Guarding due to palpation present (GI) and No Rigid due to palpation Extremity: NARRATIVE EXTREMITY EXAM: Edema in wraps, reportedly improved, no reported wounds GENERAL: Yes normal exam except as noted and No edema Neuro: COMMON NORMALS: moves all extremities SENSORIUM/ORIENTATION: Yes al ert and No Orientation impaired Psych: COMMON NORMALS: mental status grossly normal and Normal thought process present THOUGHT PROCESS: Normal thought process present Course Vital Signs: Vital signs: Vital Signs Temperature 97.9 F 07/31/22 21:57 Pulse Rate 88 08/01/22 00:10 Respiratory Rate 16 07/31/22 23:11 Blood Pressure 134/78 08/01/22 00:10 Pulse Oximetry 97 08/01/22 00:10 Oxygen Delivery Me thod 08/01/22 00:10 MDM - Abdominal Pain Medical Decision Making 71-year-old gentleman with complex past medical history presenting due to he matemesis x2 and dark tarry stools. He does report a history of anemia with negative guaiac testing in the past however has not had endoscopy for some period of time. Associated abdominal tenderness without evidence of acute surgical abdomen or peritonitis. Labs with no leukocytosis, thrombocytosis noted. Hemoglobin is improved from baseline. INR is mildly elevated. Metabolic panel with elevated BUN improved from prior and preserved renal function. Urinalysis continues to have evidence of mild infection though improved from prior. CT imaging demonstrates concern for active hemorrhage in the colon. I discussed the results of ED evaluation with the patient and recommended guaiac testing and admission for further evaluation of GI bleed. The patient adamantly declined both. He is quite fixated on his primary care provider saying that he is not a good candidate for endoscopy. I explained that this is a variable state based on clinical concern and clinical status. He adamantly declines admission. The patient is oriented to person, place, and time, has the capacity to make dec isions regarding the medical care offered. The patient speaks coherently and exhibits no evidence of having an altered level of consciousness or alcohol or drug intoxication to a point that would impair judgment. Discharge instructions were provided to the patient. The patient understands they are welcome to return to the hospital at any time to receive the recommended care or any other care at any time, regardless of their ability to pay for such care. Medical Records I reviewed the patient's medical records. Lab Data I reviewed the patient's lab results. 07/31/22 23:13 07/31/22 23: Labs/Radiology: Radiology Impressions Chest/Abdomen/Pelvis CTA 07/31/22 23:35 IMPRESSION: 1. There is increased density in the lumen of the cecum and ascending , a colonic bleed cannot be ruled out. Nuclear medicine tagged red blood cell scan may be beneficial for further evaluation. 2. No evidence for pulmonary embolism. 3. No acute cardiopulmonary process. 4. Small nodules in the right and left thyroid lobes, the larger in the left lobe. No follow-up is recommended. 5. Atherosclerotic disease of varying severity, most pronounced in the visualized femoral arteries. Multilevel stenoses of varying severity. No occlusion, thrombosis, extravasation, dissection, or aneurysm. 6. Cholelithiasis. 7. Incidental/nonacute findings are listed in the report. ADDENDUM: 08/01/22 0154 THIS REPORT CONTAINS FINDINGS THAT MAY BE CRITICAL TO PATIENT CARE. The findings were verbally communicated via telephone conference with Parth Nevarez at 1:52 AM CDT on 08/01/2022. The findings were acknowledged and understood. Laboratory Results WBC 8.2 10^3/uL (4.0-10.0) 07/31/22: RBC 2.50 10^6/uL (4.1-5.3) L 07/31/22: Hgb 8.1 g/dL (11.7-16.6) L 07/31/22: Hct 26.8 % (42.0-52.0) L 07/31/22: MCV 107.2 fl (80-94) H 07/31/22: MCH 32.4 pg (28.0-34.0) 07/31/22:13 MCHC 30.2 g/dL (30.0-36.0) 07/31/22 23:13 RDW 14.8 % (12.1-15.1) 07/31/22 23:13 Plt Count 662 10^3/cmm (130-400) H 07/31/22 23:13 MPV 9.6 fL (7.4-10.4) 07/31/22 23:13 Neut % (Auto) 79.7 % 07/31/22 23:13 Lymph % (Auto) 12.1 % 07/31/22 23:13 [place] % (Auto) 6.4 % 07/31/22 23:13 Eos % (Auto) 0.9 % 07/31/22 23:13 Baso % (Auto) 0.5 % 07/31/22 23:13 Neut # (Auto) 6.53 10^3/uL (1.8-7.7) 07/31/22 23:13 Lymph # (Auto) 1.0 10^3/uL (0.8-4.8) 07/31/22 23:13 [place] # (Auto) 0.5 10^3/uL (0.2-0.9) 07/31/22 23:13 Eos # (Auto) 0.1 10^3/uL (0.0-0.8) 07/31/22 23:13 Baso # (Auto) 0.0 10^3/uL (0.0-0.1) 07/31/22 23:13 Nucleated RBC % (auto) 0 % 07/31/22 23: Nucleated RBCs # 0.0 /100WBC 07/31/22 23:13 PT 16.10 SECONDS (12.1-14.9) H 07/31/22 23:13 INR 1.25 (0.8-1.2) H 07/31/22 23:13 APTT 30.6 SECONDS (23.9-36.7) 07/31/22 23:13 Sodium 137 mmol/L (136-145) 07/31/22 23:13 Potassium 5.0 mmol/L (3.5-5.1) 07/31/22 23:13 Chloride 102 mmol/L (98-107) 07/31/22 23:13 Carbon Dioxide 23 mmol/L (22-29) 07/31/22 23:13 Anion Gap 17.0 (5-19) 07/31/22 23:13 BUN 36 mg/dL (8-23) H 07/31/22 23:13 Creatinine 0.8 mg/dL (0.7-1.2) 07/31/22 23:13 GFR Calculation Not Reportable 07/31/22 23:13 Glucose 398 mg/dL (65-115) H 07/31/22 23:13 Calculated Osmolality 309 mOsm/kg (285-295) H 07/31/22 23:13 Calcium 9.2 mg/dL (8.5-10.5) 07/31/22 23:13 Total Bilirubin 0.2 mg/dL (0.15-1.2) 07/31/22 23:13 AST 23 U/L (0-40) 07/31/22 23:13 ALT 11 U/L (0-41) 07/31/22 23:13 Alkaline Phosphatase 110 U/L (40-130) 07/31/22 23:13 Total Protein 7.1 g/dL (6.6-8.7) 07/31/22 23:13 Albumin 3.5 g/dL (3.5-5.2) 07/31/22 23:13 Globulin 3.6 g/dL (1.3-4.6) 07/31/22 23:13 Urine Color Colorless (Yellow) 07/31/22 23:13 Urine Appearance Clear (CLEAR) 07/31/22 23:13 Urine pH 6.5 (5-7) 07/31/22 23:13 Ur Specific [place] 1.000 (1.005-1.030) L 07/31/22 23:13 Urine Protein Neg (Negative) 07/31/22 23:13 Urine Glucose (UA) 4+ (Normal) H 07/31/22 23:13 Urine Ketones 1+ (Negative) H 07/31/22 23:13 Urine Blood 3+ (Negative) H 07/31/22 23:13 Urine Nitrate Positive (Negative) H 07/31/22 23:13 Urine Bilirubin Neg (Negative) 07/31/22 23:13 Urine Urobilinogen Norm mg/dL (Negative) 07/31/22 23: Ur Leukocyte Esterase Negative (Negative) 03/13/23 23:13 Urine RBC 0-4 /hpf (0-2) H 07/31/22 23:13 Urine WBC 0-4 /hpf (0-5) H 07/31/22 23:13 Ur Squamous Epith Cells 0-4 /hpf (0-5) H 07/31/22 23:13 Amorphous Sediment Not Reportable 07/31/22 23:13 Urine Bacteria None /hpf (NONE) 07/31/22 23:13 Blood Type O Positive 07/31/22 23:29 Rho(D) Type Positive 07/31/22 23:29 Antibody Screen Negative 07/31/22 23:29 Discharge Plan Discharge Patient Disposition: Left Against Medical Advice Clinical Impression: Acute GI bleeding Condition: Stable Prescriptions: No Action bisacodyl 5 mg tablet 5 mg PO DAILY PRN (Reason: Constipation) folic acid-vit B6-vit B12 [Folbee] 2.5-25-1 mg tablet 1 tab PO DAILY ascorbic acid (vitamin C) 500 mg capsule 500 mg PO DAILY aspirin 81 mg tablet,chewable 81 mg PO DAILY isosorbide mononitrate 30 mg tablet extended release 24 hr 30 mg PO DAILY Qty: 90 3RF Lantus U-100 Insulin 100 unit/mL solution See Rx Instructions .ROUTE .COMPLEX Rx Instructions: 20 unit subcutaneously qam and 50 units bedtime Farxiga 10 mg tablet 10 mg PO DAILY glyburide 5 mg tablet 5 mg PO BID ferrous sulfate 325 mg (65 mg iron) tablet 325 mg PO BID gabapentin 300 mg capsule 300 mg PO BID atorvastatin 40 mg tablet 40 mg PO DAILY Qty: 90 3RF gemfibrozil 600 mg tablet 600 mg PO BID Qty: 180 1RF potassium chloride 20 mEq tablet,ER particles/crystals See Rx Instructions .ROUTE .COMPLEX Qty: 135 3RF Dose Instruction: TAKE 1 AND 1/2 TABLETS BY MOUTH ONCE DAILY Rx Instructions: TAKE 1 AND 1/2 TABLETS BY MOUTH ONCE DAILY furosemide 40 mg tablet See Rx Instructions .ROUTE .COMPLEX Qty: 45 3RF Dose Instruction: TAKE ONE (1) AND ONE HALF (1/2) TABLETS BY MOUTH NEEDED Rx Instructions: TAKE ONE (1) AND ONE HALF (1/2) TABLETS BY MOUTH NEEDED clopidogrel 75 mg tablet 75 mg PO DAILY Qty: 90 0RF Rx Instructions: MUST have follow-up for further refills Digox 125 mcg (0.125 mg) tablet 125 mcg PO DAILY Qty: 90 0RF fenofibrate 160 mg tablet 160 mg PO DAILY Qty: 90 1RF atenolol 25 mg tablet 25 mg PO DAILY Qty: 90 1RF omega 3-gfv-rup-fish oil [Fish Oil] 1,200 (144-216) mg Capsule 1 cap PO BID ciprofloxacin HCl 500 mg tablet 500 mg PO BID Qty: 20 0RF Discharge Orders: Discharge ED (Routine); Ordered 08/01/22 Ordered By: Parth Gomez Referrals: Dilip Solano FNP [Primary Care Provider] - Discharge Diet: Clear Liquid Discharge Activity: Increase activity as tolerated Patient Instructions: Gastrointestinal Bleeding (ED) Activity Restrictions/Additional Instructions: Thank you for visiting the emergency department. You were seen and evaluated fo r concern over GI bleed and abdominal pain. There is evidence of GI bleeding on the CT scan and I strongly recommend staying in the hospital which you are declining at this time. Please continue your proton pump inhibitor and other medications. Please follow-up with your primary care provider first thing in the morning. Return to the emergency department for continued bleeding, lightheadedness, chest pain, shortness of breath, uncontrolled pain, or anything else that you are concerned about and feel needs emergency department evaluation. Stand Alone Forms: Against Medical Advice Coding Level of Care Code ED Hydrology Professor for Soheila Harry
[2022-07-31 23:11] VITALS: BP 123/53; PULSE 76; RESP 16; O2SAT 96
[2022-07-31 23:22] LABS: Basophils % 0.5 %; Eosinophils # 0.1 10^3/uL (0.0-0.8); Eosinophils % 0.9 %; Hematocrit 26.8 % (42.0-52.0); Hemoglobin 8.1 g/dL (11.7-16.6); Lymphocytes % 12.1 %; Mean Corpuscular HGB Conc 30.2 g/dL (30.0-36.0); Mean Corpuscular Hemoglobin 32.4 pg (28.0-34.0); Mean Corpuscular Volume 107.2 fl (80-94); Mean Platelet Volume 9.6 fL (7.4-10.4); Monocytes # 0.5 10^3/uL (0.2-0.9); Monocytes % 6.4 %; Neutrophils # 6.53 10^3/uL (1.8-7.7); Neutrophils % 79.7 %; Nucleated Red Blood Cells % 0 %; Platelet Count 662 10^3/cmm (130-400); Red Cell Distribution Width 14.8 % (12.1-15.1); White Blood Count 8.2 10^3/uL (4.0-10.0)
[2022-07-31 23:32] LABS: INR 1.25 (0.8-1.2)
[2022-07-31 23:33] LABS: Partial Thromboplastin Time 30.6 SECONDS (23.9-36.7)
--- NOTE | 2022-07-31 23:35 | CTR_ITS ---
PROCEDURE INFORMATION: Exam: CTA Chest With Contrast CTA Abdomen and Pelvis With Contrast Exam date and time: 07/31/2022 11:50 PM Age: 71 years old Clinical indication: Other: Gi bleed; Prior surgery; Surgery type: Coronary stent. Appy; Patient HX: Hematemesis with rectal bleeding. Wu in place. ; Additional info: Gi bleed, hematemesis TECHNIQUE: Imaging protocol: Computed tomographic angiography of the chest with contrast. Computed tomographic angiography of the abdomen and pelvis with contrast. Sagittal and coronal reformatted images were created and reviewed. 3D rendering (Not supervised by radiologist): MIP and/or 3D reconstructed images were created by the technologist. Radiation optimization: All CT scans at this facility use at least one of these dose optimization techniques: automated exposure control; mA and/or kV adjustment per patient size (includes targeted exams where dose is matched to clinical indication); or iterative reconstruction. Contrast material: OMNI 350; Contrast volume: 95 ml; Contrast route: INTRAVENOUS (IV); REPORTING DATA: Count of CT and Cardiac NM exams in prior 12 months: This patient has received 0 known CTs and 0 known cardiac nuclear medicine studies in the 12 months prior to the current study. COMPARISON: CR XR chest 1V portable [id number] 05/18/2022 10:04 AM RADIATION DOSE METRICS: Total DLP (mGy-cm): 1148.56 FINDINGS: VASCULATURE: Great vessels off aortic arch: Mild calcified plaque. No occlusion, thrombosis, stenosis, extravasation, dissection, or aneurysm. Pulmonary arteries: No filling defects in the pulmonary arteries to suggest pulmonary embolism. Aorta: Mild to moderate calcified plaque. No occlusion, thrombosis, stenosis, extravasation, dissection, or aneurysm. Celiac trunk and mesenteric arteries: Mild calcified plaque. No occlusion, thrombosis, stenosis, extravasation, dissection, or aneurysm. Renal arteries: Mild calcified plaque bilaterally. No occlusion, thrombosis, stenosis, extravasation, dissection, or aneurysm. Right iliac arteries: Moderate calcified plaque. 30% stenosis in the right common iliac artery. No occlusion, thrombosis, extravasation, dissection, or aneurysm. Right femoral/popliteal arteries: Moderate to severe calcified plaque, most pronounced in the right common femoral artery with 75% stenosis. No occlusion, thrombosis, extravasation, dissection, or aneurysm. Left iliac arteries: Moderate calcified plaque. Up to 50% stenosis in the left common, internal, and external iliac arteries. No occlusion, thrombosis, extravasation, dissection, or aneurysm. Left femoral/popliteal arteries: Moderate calcified plaque with up to 40% stenosis in the right common iliac artery and 80% stenosis at the origin of the left deep femoral artery. There is a stent in the visualized left femoral artery. No occlusion, thrombosis, extravasation, dissection, or aneurysm. Thyroid: Small nodules in the right and left thyroid lobes, the larger in the left lobe measures 6 x 9 mm (series 6, image 28). CHEST: Trachea: Tracheobronchial structures are patent. Lungs: Mild centrilobular emphysematous changes in the lungs. Lungs are clear bilaterally. Calcified granuloma in the right lower lobe. Pleural spaces: No pneumothorax. No pleural effusion. Heart: Mild enlargement of the heart. Coronary arteries: Extensive atherosclerotic calcification in the coronary arteries. Mediastinal space: No mediastinal hematoma. No pneumomediastinum. Esophagus: The esophagus is unremarkable. ABDOMEN AND PELVIS: Liver: The liver is unremarkable. Gallbladder and bile ducts: Few stones in the gallbladder. The gallbladder is unremarkable. No biliary ductal dilatation. Pancreas: The pancreas is unremarkable. No pancreatic ductal dilatation. Spleen: The spleen is unremarkable. Adrenal glands: The right and left adrenal glands are unremarkable. Kidneys and ureters: The right and left kidneys are unremarkable. The right and left ureters are unremarkable. Stomach and bowel: There is increased density in the lumen of the cecum and ascending :, a colonic bleed cannot be ruled out. No acute abnormality in the small bowel. No acute abnormality in the stomach. Appendix: No evidence of appendicitis. Intraperitoneal space: No free intraperitoneal air. No ascites. No loculated fluid collections to suggest an abscess. Urinary bladder: The bladder is decompressed by a Wu catheter. Reproductive: Nonspecific parenchymal calcifications in the prostate gland. Lymph nodes: No lymphadenopathy. No lymphadenopathy. Bones/joints: Bones are diffusely osteopenic. Moderate degenerative changes at both the right and left hips. Mild degenerative changes of the right and left sacroiliac joints. Multilevel degenerative changes of varying severity in the visualized spine. Soft tissues: No acute abnormality in the extrathoracic soft tissues. CT/CT [facility] abdpel [id number] IMPRESSION: 1. There is increased density in the lumen of the cecum and ascending , a colonic bleed cannot be ruled out. Nuclear medicine tagged red blood cell scan may be beneficial for further evaluation. 2. No evidence for pulmonary embolism. 3. No acute cardiopulmonary process. 4. Small nodules in the right and left thyroid lobes, the larger in the left lobe. No follow-up is recommended. 5. Atherosclerotic disease of varying severity, most pronounced in the visualized femoral arteries. Multilevel stenoses of varying severity. No occlusion, thrombosis, extravasation, dissection, or aneurysm. 6. Cholelithiasis. 7. Incidental/nonacute findings are listed in the report.
[2022-07-31 23:36] LABS: Alanine Aminotransferase 11 U/L (0-41); Albumin Level 3.5 g/dL (3.5-5.2); Alkaline Phosphatase 110 U/L (40-130); Aspartate Amino Transferase 23 U/L (0-40); Blood Urea Nitrogen 36 mg/dL (8-23); Calcium 9.2 mg/dL (8.5-10.5); Carbon Dioxide 23 mmol/L (22-29); Chloride 102 mmol/L (98-107); Globulin 3.6 g/dL (1.3-4.6); Glucose 398 mg/dL (65-115); Osmolality Calculated 309 mOsm/kg (285-295); Sodium 137 mmol/L (136-145); Total Bilirubin 0.2 mg/dL (0.15-1.2); Total Protein 7.1 g/dL (6.6-8.7)
[2022-07-31 23:44] LABS: Urine Appearance Clear (CLEAR); Urine Color Colorless (Yellow); pH Urine 6.5 (5-7)
[2022-07-31 23:45] LABS: Add Urine Microscopic? YES; Bilirubin Urine Neg (Negative); Blood Urine 3+ (Negative); Glucose Urine UA 4+ (Normal); Ketones Urine 1+ (Negative); Leukocyte Esterase Urine Negative (Negative); Nitrate Urine Positive (Negative); Protein Urine Neg (Negative); Urobilinogen Urine Norm (Negative)
[2022-07-31 23:49] LABS: RBC Urine 0-4 /hpf (0-2); Squamous Epithelial Cell Urine 0-4 /hpf (0-5); WBC Urine 0-4 /hpf (0-5)
[2022-07-31] MEDS: iohexol 350 mg/mL 500 mL Btl (per mL) IV (23:57)
[2022-08-01 00:10] VITALS: BP 134/78; PULSE 88; O2SAT 97
== END 2022-08-01 02:24 | disposition left against medical advice (07) ==
PROVIDERS: Nurse Practitioner Family; Emergency Provider Emergency Medicine; PCP Nurse Practitioner
DX: K92.2 Gastrointestinal hemorrhage, unspecified (principal); Z53.21 Procedure and treatment not carried out due to patient leaving prior to being seen by health care provider; Z79.82 Long term (current) use of aspirin; Z79.4 Long term (current) use of insulin; Z79.02 Long term (current) use of antithrombotics/antiplatelets; Z87.891 Personal history of nicotine dependence; I25.10 Atherosclerotic heart disease of native coronary artery without angina pectoris; E11.9 Type 2 diabetes mellitus without complications; I25.2 Old myocardial infarction
CPT/HCPCS: 71275; 74174; 80053; 81001; 85025; 85610; 85730; 86850; 86900; 99284; Q9967

== ENCOUNTER 2022-08-19 06:18 | Emergency (ER) | payer MEDICARE, MEDICAID, SELFPAY ==
[2022-08-19] VITALS (8 sets, daily range): BP systolic 78–129; BP diastolic 49–63; PULSE 76–96; RESP 15–21; TEMP 36.4; O2SAT 96–99; BMI 25.8
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
[2022-08-19 07:31] LABS: Basophils % 0.2 %; Eosinophils % 0.5 %; Lymphocytes # 0.8 10^3/uL (0.8-4.8); Lymphocytes % 12.2 %; Mean Corpuscular Hemoglobin 32.5 pg (28.0-34.0); Mean Corpuscular Volume 111.9 fl (80-94); Mean Platelet Volume 10.3 fL (7.4-10.4); Monocytes # 0.4 10^3/uL (0.2-0.9); Monocytes % 6.6 %; Neutrophils # 5.21 10^3/uL (1.8-7.7); Nucleated Red Blood Cells % 0 %; Platelet Count 343 10^3/cmm (130-400); Red Blood Count 1.51 10^6/uL (4.1-5.3); Red Cell Distribution Width 15.2 % (12.1-15.1); White Blood Count 6.5 10^3/uL (4.0-10.0)
[2022-08-19 07:40] LABS: Hematocrit 16.9 % (42.0-52.0); Hemoglobin 4.9 g/dL (11.7-16.6)
[2022-08-19 07:52] LABS: INR 1.27 (0.8-1.2)
[2022-08-19 07:53] LABS: Partial Thromboplastin Time 27.7 SECONDS (23.9-36.7)
[2022-08-19 08:05] LABS: Alanine Aminotransferase 10 U/L (0-41); Albumin Level 3.1 g/dL (3.5-5.2); Alkaline Phosphatase 168 U/L (40-130); Anion Gap 14.7 (5-19); Aspartate Amino Transferase 20 U/L (0-40); Blood Urea Nitrogen 35 mg/dL (8-23); Calcium 8.6 mg/dL (8.5-10.5); Carbon Dioxide 23 mmol/L (22-29); Chloride 98 mmol/L (98-107); Creatinine Clr Calc Pharmacy 79.4632; Globulin 2.8 g/dL (1.3-4.6); Osmolality Calculated 306 mOsm/kg (285-295); Potassium 4.7 mmol/L (3.5-5.1); Sodium 131 mmol/L (136-145); Total Bilirubin 0.2 mg/dL (0.15-1.2); Total Protein 5.9 g/dL (6.6-8.7)
[2022-08-19 08:05] LABS: Add Urine Microscopic? YES; Bilirubin Urine Neg (Negative); Blood Urine Trace (Negative); Glucose Urine UA 4+ (Normal); Ketones Urine 1+ (Negative); Leukocyte Esterase Urine 1+ (Negative); Nitrate Urine Negative (Negative); Protein Urine Neg (Negative); Specific Gravity, Urine 1.005 (1.005-1.030); Urine Appearance Clear (CLEAR); Urine Color Colorless (Yellow); Urobilinogen Urine Norm (Negative); WBC Urine 15-25 /hpf (0-5); pH Urine 6 (5-7)
[2022-08-19 08:06] LABS: Bacteria Urine 2+ /hpf
[2022-08-19 08:07] LABS: Add Urine Culture? Yes
[2022-08-19 08:14] LABS: Glucose 561 mg/dL (65-115)
== END 2022-08-19 08:42 | disposition left against medical advice (07) ==
PROVIDERS: Emergency Provider Family Medicine; PCP Nurse Practitioner
DX: D64.9 Anemia, unspecified (principal); K92.2 Gastrointestinal hemorrhage, unspecified; E11.9 Type 2 diabetes mellitus without complications; N30.90 Cystitis, unspecified without hematuria; Z79.82 Long term (current) use of aspirin; Z79.4 Long term (current) use of insulin; Z79.02 Long term (current) use of antithrombotics/antiplatelets; Z79.84 Long term (current) use of oral hypoglycemic drugs; Z87.891 Personal history of nicotine dependence; I25.10 Atherosclerotic heart disease of native coronary artery without angina pectoris; I25.2 Old myocardial infarction
CPT/HCPCS: 80053; 81001; 85025; 85610; 85730; 87077; 87086; 87186; 99284

== ENCOUNTER → 2022-09-13 13:53 | Outpatient (BNVA) | payer MEDICARE, MEDICAID, SELFPAY | PROVIDERS: PCP Nurse Practitioner; Visit Provider Internal Medicine | DX: I25.10 Atherosclerotic heart disease of native coronary artery without angina pectoris (principal); I73.9 Peripheral vascular disease, unspecified; Z87.891 Personal history of nicotine dependence; Z91.199 Patient's noncompliance with other medical treatment and regimen due to unspecified reason | CPT/HCPCS: 99214 ==

== ENCOUNTER 2022-10-16 08:03 | Inpatient (IN) | payer MEDICAID, SELFPAY ==
[2022-10-16] VITALS (59 sets, daily range): BP systolic 71–112; BP diastolic 37–72; PULSE 67–80; RESP 14–28; TEMP 36.4–36.9; O2SAT 85–100; BMI 25.8
--- NOTE | 2022-10-16 08:18 | PC.NURSE ---
PATIENT PLACED ON 3 L NC DUE TO 85% RA ON ASSESSMENT. PATIENT O2 99% AFTER OXYGEN PLACEMENT, LOWERED TO 2 L NC.
--- NOTE | 2022-10-16 08:20 | XRR_ITS ---
PROCEDURE INFORMATION: Exam: XR Chest Exam date and time: 10/16/2022 7:40 AM Age: 72 years old Clinical indication: Shortness of breath; Additional info: Dyspnea.No history of trauma or recent surgery is provided. TECHNIQUE: Imaging protocol: Radiologic exam of the chest. 1image(s) are provided. Views: 1 view. COMPARISON: 1. CR XR chest 1V portable [id number] 05/18/2022 10:[address] ang ches abdpel [id number] 07/31/2022 11:50 PM FINDINGS: Lungs: There is some patchy ground-glass attenuation of the lung bases left more so than right.No lobar consolidation is appreciated. Pleural spaces: There is some pleural fluid blunting the costophrenic angles left more so than right. No pneumothorax is appreciated. Heart/Mediastinum: The cardiomediastinal silhouette is upper normal in size.This can be seen with central averaging as well as louis enlargement. This can also be seen with increased volume status with pulmonary hypertension and early interstitial edema.No cardiac decompensation is appreciated. Diaphragm: The hemidiaphragms are relatively symmetric. Bones/joints: Osseous alignment is maintained.No interval displaced fracture or dislocation is appreciated. There is slightly decreased bone mineralization overall. There are some chronic degenerative changes of the shoulders present. Soft tissues: No radiopaque foreign body or subcutaneous emphysema is appreciated. Other findings: No other significant interval changes are appreciated. XR/XR chest 1V portable [id number] IMPRESSION: 1. In the interval there is prominence of the central vessels and interstitial markings suggestive of increased volume status and early interstitial edema. 2. There is some patchy atelectatic consolidation and pleural fluid at the lung bases left more so than right. Some early inflammation could also present in this fashion.
--- NOTE | 2022-10-16 08:27 | ED_ITS ---
HPI - SOB/Dyspnea General: Chief Complaint: Shortness of Breath/Dyspnea Stated Complaint: sob, n/v Time Seen by Provider: 10/16/22 08:19 History of Present Illness: HPI Narrative: Patient presents to the ER with complaints of shortness of breath worsening over the last 5 days. Patient arrived on room air with an O2 saturation of 85%. Patient is very tired and drowsy upon assessment. Patient does have a history of severe anemia with GI bleed in the past. MD elicited complaint: shortness of breath Pertinent past history: congestive heart failure and diabetes Onset (ago): day(s) (About 5 days ago) Timing: constant and progressively worsening Severity: moderate Exacerbating factors: exertion Relieving factors: nothing Known history of: other (Anemia GI bleed) Treatment prior to arrival: none Review of Systems General: Reports: 10 or more systems reviewed and unremarkable except in HPI and below PFSH ED PFSH: Medical History CAD (coronary artery disease) Diabetes mellitus Former smoker History of [place] (myocardial infarction) Lymphedema PAD (peripheral artery disease) Phimosis Unable to ambulate Venous insufficiency Surgical History S/P appendectomy S/P peripheral artery angioplasty with stent placement Family History Brother Diabetes Mother Diabetes Sister Diabetes Father Stroke Social History Smoking and tobacco status: former smoker Quit status (tobacco): has quit using tobacco Year quit tobacco: 4 ya Alcohol intake: former Substance/Drug Use: never Lives independently: No Household members: spouse Marital status: Current occupational status: disabled Physical Exam Const: COMMON NORMALS: alert GENERAL APPEARANCE: disheveled and ill appearing NUTRITIONAL APPEARANCE: overweight ORIENTATION/CONSCIOUSNESS: Yes awake HENMT: COMMON NORMALS: normocephalic, atraumatic, hearing grossly normal bilaterally, external ears normal, Normal external nose present and moist oral mucous membranes HEAD & SCALP: normocephalic and atraumatic NOSE: Normal external nose present EXTERNAL EAR: Yes external ears normal Neck/C-Spine: COMMON NORMALS: full ROM, no lymphadenopathy, supple, no meningeal signs, no JVD and Thyroid normal THYROID: Thyroid normal Chest: COMMONS NORMALS: normal inspection of the chest and normal palpation of entire chest wall Resp: EFFORT & INSPECTION: Yes symmetric chest movement and Yes audible wheezes AUSCULTATION: rhonchi, wheezes and diminished lung sounds Cardio: COMMON NORMALS: no JVD, regular rate, regular rhythm, S1 normal heart sound present and S2 normal heart sound present RATE: regular rate RHYTHM: regular rhythm HEART SOUNDS: S1 normal heart sound present and S2 normal heart sound present GI: COMMON NORMALS: Normal to inspection, nondistended, normoactive bowel sounds present, Soft to palpation, non-tender, No hepatosplenomegaly present and no masses PALPATION: Yes Soft to palpation and Yes No hepatosplenomegaly present Extremity: NARRATIVE EXTREMITY EXAM: Lymphedema wraps to bilateral lower extremities Neuro: SENSORIUM/ORIENTATION: Yes alert MENINGEAL SIGNS: Yes no meningeal signs Course Vital Signs: Vital signs: Vital Signs Temperature 97.5 F L 10/16/22 08:11 Pulse Rate 76 10/16/22 08:11 Respiratory Rate 18 10/16/22 08:11 Blood Pressure 103/51 10/16/22 08:11 Pulse Oximetry 85 L 10/16/22 08:11 Oxygen Delivery Me thod Room Air 10/16/22 08:11 MDM - SOB/Dyspnea Medical Decision Making Patient presents to the ER with shortness of breath, fatigue, lethargy conf usion. Patient does have a strong history of severe anemia in the recent past. Lab work was obtained which showed a hemoglobin of 5.4 hematocrit 21.1, white blood cells of 5.7, sodium 133 potassium of 5.2, BUN/creatinine of 22 and 0.9. Chest x-ray was obtained which showed prominent central vessels and interstitial markings suggestive of early interstitial edema and some patchy atelectasis atel ectatic consolidation. ABG was obtained which showed pH 7.3 PO2 of 112 PCO2 of 40 and a bicarb of 20. PT/INR was slightly elevated at 18.8 and 1.52, patient was notified that patient needed multiple units of blood and further work- up at this time he agreed for inpatient admission and treatment. Dr. Nova was consulted who accepted the patient for admission for further evaluation and treatment. Differential Diagnosis Likely acute exacerbation of chronic obstructive airways disease and congestive heart failure; Unlikely community acquired pneumonia, asthma with exacerbation or pulmonary embolism Medical Records I reviewed the patient's medical records. Lab Data I reviewed the patient's lab results. 10/16/22 09:00 10/16/22 09:00 Labs/Radiology: Radiology Impressions Chest X-Ray 10/16/22 08:20 IMPRESSION: 1. In the interval there is prominence of the central vessels and interstitial markings suggestive of increased volume status and early interstitial edema. 2. There is some patchy atelectatic consolidation and pleural fluid at the lung bases left more so than right. Some early inflammation could also present in this fashion. Laboratory Results WBC 5.7 10^3/uL (4.0-10.0) 10/16/22 09:00 RBC 1.87 10^6/uL (4.1-5.3) L 10/16/22 09:00 Hgb 5.4 g/dL (11.7-16.6) L* 10/16/22 09:00 Hct 21.1 % (42.0-52.0) L 10/16/22 09:00 MCV 112.8 fl (80-94) H 10/16/22 09:00 MCH 28.9 pg (28.0-34.0) 10/16/22 09:00 MCHC 25.6 g/dL (30.0-36.0) L 10/16/22 09:00 RDW 14.8 % (12.1-15.1) 10/16/22 09:00 Plt Count 395 10^3/cmm (130-400) 10/16/22 09:00 MPV 10.4 fL (7.4-10.4) 10/16/22 09:00 Neut % (Auto) 81.8 % 10/16/22 09:00 Lymph % (Auto) 7.0 % 10/16/22 09:00 [place] % (Auto) 10.2 % 10/16/22 09:00 Eos % (Auto) 0.2 % 10/16/22 09:00 Baso % (Auto) 0.4 % 10/16/22 09:00 Neut # (Auto) 4.67 10^3/uL (1.8-7.7) 10/16/22 09:00 Lymph # (Auto) 0.4 10^3/uL (0.8-4.8) L 10/16/22 09:00 [place] # (Auto) 0.6 10^3/uL (0.2-0.9) 10/16/22 09:00 Eos # (Auto) 0.0 10^3/uL (0.0-0.8) 10/16/22 09:00 Baso # (Auto) 0.0 10^3/uL (0.0-0.1) 10/16/22 09:00 Nucleated RBC % (auto) 0.5 % 10/16/22 09:00 Nucleated RBCs # 0.0 /100WBC 10/16/22 09:00 PT 18.80 SECONDS (12.1-14.9) H 10/16/22 09:00 INR 1.52 (0.8-1.2) H 10/16/22 09:00 Specimen Type Arterial 10/16/22 08:31 Sample Site Radial, right 10/16/22 08:31 ABG pH 7.30 (7.35-7.45) L 10/16/22 08:31 ABG pCO2 40.6 mmHg (35-45) 10/16/22 08:31 ABG pO2 112.0 mmHg (80.0-100.0) H 10/16/22 08:31 ABG HCO3 20.0 mmol/L (22-26) L 10/16/22 08:31 ABG Base Excess -5.9 mmol/L (-2.0-2.0) L 10/16/22 08:31 Joseluis Test Pos 10/16/22 08:31 Hematocrit 21.2 % (42-52) L 10/16/22 08:31 Hgb O2 Saturation 96.7 % (95-100) 10/16/22 08:31 Carboxyhemoglobin 3.1 %THgb (0.4-20.1) 10/16/22 08:31 Methemoglobin 0.1 % (0.4-1.5) L 10/16/22 08:31 Total Hemoglobin 6.9 g/dL (14-18) L 10/16/22 08:31 O2 Delivery Device Nc 10/16/22 08:31 O2 Liters/Min 2.0 % 10/16/22 08:31 FiO2 28.0 % 10/16/22 08:31 Buttermaker Continuous Churn ID glc 10/16/22 08:31 Sodium 133 mmol/L (136-145) L 10/16/22 09:00 Potassium 5.2 mmol/L (3.5-5.1) H 10/16/22 09:00 Chloride 104 mmol/L (98-107) 10/16/22 09:00 Carbon Dioxide 18 mmol/L (22-29) L 10/16/22 09:00 Anion Gap 16.2 (5-19) 10/16/22 09:00 BUN 22 mg/dL (8-23) 10/16/22 09:00 Creatinine 0.9 mg/dL (0.7-1.2) 10/16/22 09:00 GFR Calculation Not Reportable 10/16/22 09:00 Glucose 447 mg/dL (65-115) H 10/16/22 09:00 Calculated Osmolality 299 mOsm/kg (285-295) H 10/16/22 09:00 Lactic Acid 2.5 mmol/L (0.5-2.2) H 10/16/22 09:00 Calcium 7.8 mg/dL (8.5-10.5) L 10/16/22 09:00 Magnesium 2.6 mg/dL (1.7-2.3) H 10/16/22 09:00 Total Bilirubin 0.3 mg/dL (0.15-1.2) 10/16/22 09:00 AST 41 U/L (0-40) H 10/16/22 09:00 ALT 21 U/L (0-41) 10/16/22 09:00 Alkaline Phosphatase 146 U/L (40-130) H 10/16/22 09:00 NT-Pro-B Natriuret Pep 6302 pg/mL (0-125) H 10/16/22 09:00 Total Protein 6.2 g/dL (6.6-8.7) L 10/16/22 09:00 Albumin 3.0 g/dL (3.5-5.2) L 10/16/22 09:00 Globulin 3.2 g/dL (1.3-4.6) 10/16/22 09:00 Procalcitonin 0.36 ng/mL (0-0.5) 10/16/22 09:00 Digoxin 0.6 ng/mL (0.6-1.2) 10/16/22 09:00 EKG Data EKG 1: I personally reviewed and interpreted this EKG as follows: EKG Interpretation Date: 10/16/22 EKG interpretation time: 10:12 Prior EKG tracings: not available for review Interpretation: EKG showed sinus rhythm at 70 bpm, KS interval 139, QRS duration 97, QTc 414, ST deviation moderate T wave abnormalities with negative T waves in 1 to aVL aVF V5 and V6. Discharge Plan Discharge Patient Disposition: Admitted As Inpatient Clinical Impression: Acute anemia, Hypoxia, Hyperkalemia Congestive heart failure Qualifiers: Heart failure type: unspecified Heart failure chronicity: unspecified Qualified Code(s): I50.9 - Heart failure, unspecified Condition: Stable Coding Level of Care Code ED Quality Engineering Manager for Soheila Harry
[2022-10-16 08:43] LABS: ABG PCO2 40.6 mmHg (35-45); Arterial Blood Gas Hematocrit 21.2 % (42-52); Base Excess ABG -5.9 mmol/L (-2.0-2.0); Blood Gas Allen Test Pos; Blood Gas Operator Identificat glc; Blood Gas Sample Site Radial, right; Blood Gas Sample Type Arterial; Carboxyhemoglobin 3.1 %THgb (0.4-20.1); HGB O2 Sat 96.7 % (95-100); Methemoglobin 0.1 % (0.4-1.5); Oxygen Device NC; Total Hemoglobin 6.9 g/dL (14-18)
--- NOTE | 2022-10-16 08:43 | ECG_ITS ---
[facility] Test Date: 2022-10-16 Pat Name: Allan Hardin Department: Room: Gender: Male Change Of Address Clerk: : 1950 Requested By: Jeff Langford Order Number: [id number] Yudelka MD: Se Pringle M.D. Measurements Intervals [place] Rate: 70 P: 74 HI: 139 QRS: 33 QRSD: 97 T: 244 QT: 393 QTc: 426 Interpretive Statements SINUS RHYTHM [address] DEVIATION AND MODERATE T-WAVE ABNORMALITY, CONSIDER LATERAL ISCHEMIA [-0.1+ mV T-WAVE IN I/aVL/V5/V6] ST DEVIATION AND MODERATE T-WAVE ABNORMALITY, CONSIDER INFERIOR ISCHEMIA [-0.1+ mV T-WAVE IN II/aVF] Compared to ECG 05/18/2022 10:30:26 Possible ischemia now present T-wave abnormality still present Electronically Signed On 10-16-2022 23:27:50 CDT by Se Pringle M.D. [email or web address]
[2022-10-16 09:12] LABS: Basophils % 0.4 %; Eosinophils % 0.2 %; Hematocrit 21.1 % (42.0-52.0); Lymphocytes # 0.4 10^3/uL (0.8-4.8); Mean Corpuscular HGB Conc 25.6 g/dL (30.0-36.0); Mean Corpuscular Hemoglobin 28.9 pg (28.0-34.0); Mean Corpuscular Volume 112.8 fl (80-94); Mean Platelet Volume 10.4 fL (7.4-10.4); Monocytes # 0.6 10^3/uL (0.2-0.9); Monocytes % 10.2 %; Neutrophils # 4.67 10^3/uL (1.8-7.7); Neutrophils % 81.8 %; Nucleated Red Blood Cells % 0.5 %; Platelet Count 395 10^3/cmm (130-400); Red Blood Count 1.87 10^6/uL (4.1-5.3); Red Cell Distribution Width 14.8 % (12.1-15.1); White Blood Count 5.7 10^3/uL (4.0-10.0)
[2022-10-16 09:21] LABS: Hemoglobin 5.4 g/dL (11.7-16.6)
[2022-10-16 09:24] LABS: INR 1.52 (0.8-1.2)
[2022-10-16 09:28] LABS: Lactic Sepsis W/Reflex 2.5 mmol/L (0.5-2.2)
[2022-10-16 09:29] LABS: Digoxin 0.6 ng/mL (0.6-1.2)
[2022-10-16 09:37] LABS: NT Pro B Type Natriuretic Pept 6302 pg/mL (0-125); Procalcitonin 0.36 ng/mL (0-0.5)
[2022-10-16 09:48] LABS: Alanine Aminotransferase 21 U/L (0-41); Alkaline Phosphatase 146 U/L (40-130); Anion Gap 16.2 (5-19); Aspartate Amino Transferase 41 U/L (0-40); Blood Urea Nitrogen 22 mg/dL (8-23); Calcium 7.8 mg/dL (8.5-10.5); Carbon Dioxide 18 mmol/L (22-29); Chloride 104 mmol/L (98-107); Globulin 3.2 g/dL (1.3-4.6); Glucose 447 mg/dL (65-115); Magnesium 2.6 mg/dL (1.7-2.3); Osmolality Calculated 299 mOsm/kg (285-295); Potassium 5.2 mmol/L (3.5-5.1); Sodium 133 mmol/L (136-145); Total Bilirubin 0.3 mg/dL (0.15-1.2); Total Protein 6.2 g/dL (6.6-8.7)
[2022-10-16] MEDS: FUROsemide 10 mg/mL SDV 4mL 40 MG IVP (10:18)
--- NOTE | 2022-10-16 10:50 | USCV_ITS ---
Allan Hardin Age: 72 Gender: M : 1950 Exam Date: 10/16/2022 12:46 Ordering Phys: Gómez Nova MD Technologist: Bruce Lamb Exam Location: [facility] [place] Indication: CHF BP: 89 / 54 HR: 68 Rhythm: Sinus Technical Quality: Adequate MEASUREMENTS (Male / Female) Normal Values 2D ECHO LVOT Diameter 2.0 cm LV Ejection Fraction MOD 2C 41.7 % LV Ejection Fraction 2C AL 42.9 % LA Diameter 3.3 cm LA Width 3.7 cm LA Height 4.2 cm RA Width 2.9 cm RA Height 4.1 cm Aorta at Sinotubular Diameter 2.5 cm IVC Diameter 2.6 cm M-MODE Aortic Annulus Diameter 2.6 cm LA Ao Ratio MM 1.3 MV E Point Septal Separation 0.5 cm DOPPLER AV Peak Velocity 108.0 cm/s LVOT Peak Velocity 61.0 cm/s AV Area Cont Eq vti 1.8 cm squared AV Area Cont Eq pk 1.8 cm squared MV Peak Velocity 107.0 cm/s MV Area PHT 5.9 cm squared Mitral E to A Ratio 1.5 MV E' Velocity 47.5 cm/s Mitral E to MV E' Ratio 11.7 Mitral E to LV E' Lateral Ratio 12.7 Mitral E to LV E' Septal Ratio 11.0 TR Peak Velocity 344.7 cm/s TR Peak Gradient 47.5 mmHg TR Mean Velocity 248.1 cm/s TR Mean Gradient 29.0 mmHg TR Velocity Time Integral 97.2 cm Right Atrial Pressure 15.0 mmHg Pulmonary Artery Systolic Pressu 62.5 mmHg PV Peak Velocity 89.0 cm/s RV Acceleration Time 0.1 s RV Ejection Time 0.4 s RV AcT/ET 0.2 FINDINGS Left Ventricle Normal left ventricular size, systolic function and wall thickness, with no regional wall motion abnormalities. Normal left ventricular wall thickness. Grade I diastolic filling pattern. EF 55 % Right Ventricle The right ventricle is dilated with global hypokinesia Right Atrium The right atrium is mildly dilated Left Atrium The left atrium is mildly dilated Mitral Valve Structurally normal mitral valve without significant stenosis or prolapse. There is mild mitral regurgitation. Aortic Valve Structurally normal aortic valve is calcified with mild restriction. There is no aortic regurgitation. Tricuspid Valve Structurally normal tricuspid valve with moderate regurgitation. Pulmonary artery systolic pressure is elevated with severe pulmonary hypertension. Pulmonic Valve Structurally normal pulmonic valve without significant stenosis. There is no pulmonic regurgitation. Pericardium Normal pericardium without effusion. Aorta Normal ascending aorta dimension. IVC The inferior vena cava appears normal. CONCLUSIONS Normal left ventricular size, systolic function and wall thickness, with no regional wall motion abnormalities. Normal left ventricular wall thickness. Grade I diastolic filling pattern. EF 55 % Moderate tricuspid regurgitation. Pulmonary artery systolic pressure is elevated with severe pulmonary hypertension. Technically limited study. There is no pericardial effusion. Tye Toure MD (Electronically Signed) Final Date: 16 Oct 2022 13:46 S
[2022-10-16 10:51] LABS: Reflex Lactate Order REFLEX LACTIC ORDERD
--- NOTE | 2022-10-16 10:53 | USR_ITS ---
PROCEDURE INFORMATION: Exam: US Duplex Lower Extremity Veins, Bilateral Exam date and time: 10/16/2022 12:12 PM Age: 72 years old Clinical indication: Edema, localized; Lower extremity, bilateral TECHNIQUE: Imaging protocol: Real-time duplex ultrasound of the bilateral extremities with 2-D sigala scale, color Doppler flow and spectral waveform analysis including responses to compression and other maneuvers (when performed) with image documentation. Complete exam focused on the lower extremity veins. [id number](s) are provided. COMPARISON: CT ang ches abdpel [id number] 07/31/2022 11:50 PM. No previous venous ultrasound is currently available. FINDINGS: Right deep veins: Compressibility and color Doppler flow is demonstrated throughout including the common femoral, profunda, superficial femoral, popliteal, posterior tibial, and peroneal veins. Right superficial veins: The saphenofemoral junction is patent without thrombosis appreciated. Left deep veins: Compressibility and color Doppler flow is demonstrated throughout including the common femoral, profunda, superficial femoral, popliteal, posterior tibial, and peroneal veins. Left superficial veins: The saphenofemoral junction is patent without thrombus. Soft tissues: There is some subcutaneous edema demonstrated. No organized subcutaneous fluid collections are currently appreciated. Other findings: No other significant interval changes are appreciated. There is some motion and penetration artifact. US/[place] [id number] IMPRESSION: No evidence of deep vein thrombosis.
[2022-10-16 10:59] LABS: Ammonia 22 umol/L (16-60)
[2022-10-16] MEDS: pantoprazole 40 mg SDV IVP ×2 (11:17→22:20)
--- NOTE | 2022-10-16 11:24 | P.HP_ITS ---
Providers/Chief Complaint Admitting Physician: Gómez Nova MD Primary Care Provider: MALOU Najera Chief Complaint: sob, n/v History of Present Illness Allan Hardin is a 72 year old male that presents to the emergency department with complaints of increasing fatigue, lethargy, shortness of breath. gives most of the history, as patient is limited secondary to lethargy. He will open his eyes and say a few words and tries to go back to sleep. She reports he is on issues for the last 5 days. This initially started with him vomiting some bright red blood. Then he proceeded to have some dark tarry stools. This is tapered off but he is still having some. She states he has had problems with anemia in the past for which he has refused work-up. He has had multiple transfusions in the past. He has had no endoscopies. He is got no history of any fever or chills. He does have a chronic indwelling catheter, that is due to be changed. She reports he was hypertensive yesterday, but blood pressure is low today. He has been nauseated but not vomiting. No diarrhea. Bleeds. He is still taking aspirin and Plavix. He has chronic edema, which is about the same. She reports no rashes. He has had a recent UTI, and believes he was on cephalexin. This course has been completed. Review of Systems General: Reports: ROS unobtainable due to medical condition Medications/Allergies Home Medications Medication Instructions Recorded Confirmed Last Taken Type dapagliflozin 10 mg tablet 10 mg PO DAILY 09/17/19 10/16/22 10/16/22 History (Farxiga) ferrous sulfate 325 mg (65 mg 325 mg PO BID 09/17/19 10/16/22 10/16/22 History iron) tablet glyburide 5 mg tablet 5 mg PO BID 09/17/19 10/16/22 10/16/22 History insulin glargine 100 unit/mL See Rx Instructions .Route .COMPLEX 09/17/19 10/16/22 10/16/22 History subcutaneous solution (Lantus U-100 Insulin) ascorbic acid (vitamin C) 500 mg 500 mg PO DAILY 06/09/20 10/16/22 10/16/22 History capsule atorvastatin 40 mg tablet 40 mg PO DAILY #90 tabs 06/07/21 10/16/22 10/16/22 Rx aspirin 81 mg chewable tablet 81 mg PO DAILY 09/26/21 10/16/22 10/16/22 History isosorbide mononitrate 30 mg 30 mg PO DAILY #90 tabs 09/26/21 10/16/22 10/16/22 Rx tablet,extended release 24 hr gemfibrozil 600 mg tablet 600 mg PO BID #180 tabs 01/10/22 10/16/22 10/16/22 Rx clopidogrel 75 mg tablet 75 mg PO DAILY #90 tabs 06/19/22 10/16/22 10/16/22 Rx atenolol 25 mg tablet 25 mg PO DAILY #90 tabs 07/05/22 10/16/22 10/16/22 Rx fenofibrate 160 mg tablet 160 mg PO DAILY #90 tabs 07/05/22 10/16/22 10/16/22 Rx cyanocobalamin (vitamin B-12) 1,000 mcg PO DAILY 09/13/22 10/16/22 10/16/22 History 1,000 mcg tablet omeprazole 40 mg capsule,delayed 40 mg PO DAILY 09/13/22 10/16/22 10/16/22 History release digoxin 125 mcg (0.125 mg) tablet 125 mcg PO DAILY #90 tabs 10/12/22 10/16/22 10/16/22 Rx (Digox) furosemide 40 mg tablet 60 mg PO DAILY PRN Edema 10/16/22 10/16/22 10/16/22 History omega-3 fatty acids-fish oil 360 1 cap PO BID 10/16/22 10/16/22 10/16/22 History mg-1,200 mg capsule (Fish Oil) potassium chloride 20 mEq 30 meq PO DAILY 10/16/22 10/16/22 10/16/22 History tablet,extended release(part/cryst) pregabalin 100 mg capsule 100 mg PO BID 10/16/22 10/16/22 10/16/22 History Allergies Allergy/AdvReac Type Severity Reaction Status Date / Time Penicillins Allergy Unknown Unknown Verified 10/16/22 08:17 PFSH Acute PFSH: Medical History (Updated 10/16/22 @ 11:37 by Gómez Nova MD) CAD (coronary artery disease) Diabetes mellitus Former smoker History of RI (myocardial infarction) Lymphedema Macrocytic anemia PAD (peripheral artery disease) Phimosis Unable to ambulate Venous insufficiency Surgical History S/P appendectomy S/P peripheral artery angioplasty with stent placement Family History Brother Diabetes Mother Diabetes Sister Diabetes Father Stroke Social History Smoking and tobacco status: former smoker Quit status (tobacco): has quit using tobacco Year quit tobacco: 4 ya Alcohol intake: former Substance/Drug Use: never Lives independently: No Household members: spouse Marital status: Current occupational status: disabled Vitals/I&O/Wt Last Vital Signs Temp 97.5 F L 10/16/22 08:11 Pulse 68 10/16/22 11:11 Resp 18 10/16/22 10:23 BP 89/54 10/16/22 11:11 Pulse Ox 100 10/16/22 11:11 O2 Del Method Nasal Cannula 10/16/22 11:11 O2 Flow Rate 3 10/16/22 11:11 Weight last 48 hrs Weight 72.575 kg Physical Exam Narrative: General exam demonstrates a pale white male, who is somewhat slow to respond. Vitals are reviewed. Oxygen saturation is 98% on 2 L HEENT: Atraumatic and normocephalic. Oropharynx clear. Neck is supple no lymphadenopathy thyromegaly Cardiovascular regular rate and rhythm without murmur Lungs bilateral faint wheezes. No crackles Abdomen is soft nontender positive bowel sounds. No obvious organomegaly exam demonstrates Wu Extremities with lymphedema wraps. These will be removed and I will visualize his legs in the ICU. His reports there is no significant skin breakdown and she last changed these wraps approximately 24 to 48 hours ago Neuro: Slow to respond but no obvious focal deficits. reports his baseline is normal mentation, but significant lower extremity weakness and inability to ambulate following a fall 7 years ago. Urinary Catheter Management: Wu: Cath Placed During This Visit: yes Urinary Catheter Date of Insertion: 10/16/22 Urinary Catheter Time of Insertion: 11:09 Sepsis: Is patient septic: Yes Focused sepsis exam performed: Yes Date exam was performed: 10/16/22 Time exam was performed: 10:42 Data 10/16/22 09:00 10/16/22 09:00 Other Labs: MCV is 112 INR 1.5 ABG demonstrates a pH of 7.3, PO2 of 112, PCO2 of 40.6 on 2 L Lactic acid is high at 2.5. Calcium 7.8. Magnesium 2.6. Bilirubin normal, AST 41, ALT 21, alk phos 146 Ammonia level 22 BNP 6300 Albumin 3.0 Digoxin 0.6 Urinalysis ordered EKG demonstrates normal sinus rhythm, normal axis, T wave inversion inferior and some laterally. There are some similar changes noted on prior EKGs although not this drastic. This is per my evaluation. Previous CTA done July 31 when patient went AGAINST MEDICAL ADVICE there was concern for possible blood in the cecum. Cholelithiasis was also noted. Troponin I have ordered which is pending I have ordered multiple other tests including anemia studies which are pending. Chest x-ray demonstrates some vascular crowding bilaterally. No discrete pneumonic infiltrate. Possible small effusion on the left by my read. A&P Assessment and plan (1) Acute anemia: Patient has what appears to be acute on chronic severe anemia. He has refused work-up in the past, but reports he is amenable now. This is likely a mixed etiology. Certainly history is consistent with acute upper GI bleeding. However, his MCV is markedly elevated bringing into question possibility of other etiologies such as B12 or folate deficiency, myelodysplasi a, cirrhosis. Note that his ammonia level is normal. INR is slightly high but not severely so. Transfused 2 units of packed red blood cells, hemoglobin to follow Consider serial hemoglobins depending upon response CBC in the morning Discontinue Plavix and aspirin Check anemia panel, stool Hemoccult, haptoglobin, peripheral smear, reticulocyte count, SPEP (2) Upper GI bleeding: Patient presents with history of hematemesis 5 days ago, and then melena Hold Plavix and aspirin No anticoagulation After stabilization consider endoscopy if he will allow Protonix 40 mg IV every 12 hours (3) Encephalopathy acute: Patient has acute encephalopathy currently. This is likely secondary to his severe anemia, congestive heart failure. Infection has not been excluded such as UTI. Continue to monitor for improvement. At this point we will hold off on CT head as he has no new neurologic deficits Hold Lyrica (4) Hypotension: When I evaluated the patient he had hypotension. We will have the nurse monitor, and initiate blood promptly. From my understanding this can be accomplished right now. As we are giving blood, will hold off on giving a significant amount of saline. He is obviously fluid overloaded, and received 1 dose of Lasix from the emergency department. If he continues to be hypotensive despite receiving blood, consider norepinephrine. Hold Atenolol currently, hold Imdur (5) Congestive heart failure, acute: Patient has evidence of acute congestive heart failure. BNP is elevated. He has significant peripheral edema although he carries a diagnosis of venous stasis as well. Check echocardiogram Serial troponins Lasix x1 was given. Reevaluate for further doses BMP, magnesium in the morning (6) Hyperkalemia: Avoid potassium containing products Lasix should lower potassium level Recheck in the morning Plan Probable UTI, and elevated lactic acid level. Combined with his hypotension, it is concerning for possible sepsis. Urinalysis is pending but urine appears very cloudy. Lactic acid was elevated. He is not a candidate for fluids secondary to his acute heart failure, need for acute transfusion as volume. Lactic acid should be repeated as that is the protocol in the ER currently. I have ordered blood cultures that were not done initially. I have ordered meropenem. I have communicated all this to nursing. DM initiate sliding scale insulin Venous stasis. Check venous duplex bilaterally. Multiple other medical problems as outlined in past medical history Full code SCDs for DVT prophylaxis, anticoagulation contraindicated secondary to GI bleed Attestations Medical Necessity Statement*: Will need greater than 2 midnight stay for evaluation and treatment of severe anemia, probable UTI, hypotension, acute congestive heart failure Critical Care Time: The high probability of a clinically significant, sudden or life threatening deterioration of the patient's [pulmonary, cardiac, infectious, hematologic] system(s) required my full and direct attention, intervention and personal management. The critical care time is as shown. This time is in addition to time spent performing any reported procedures but includes the following: [x] Data and vital sign review and interpretation [x] Patient assessment, examination and intervention [x] Documentation [x] Medication orders and management Critical Care Time (min): 68 Coding Level of Care Code Critical Care >/= 30 minutes Diagnoses Acute anemia D64.9 Upper GI bleeding K92.2 Encephalopathy acute G93.40 Hypotension I95.9 Congestive heart failure, acute I50.9 Hyperkalemia E87.5 Time Spent (min) 68
[2022-10-16 12:14] LABS: Lactic Acid level (Lactate) 1.6 mmol/L (0.5-2.2)
[2022-10-16 12:20] LABS: Reticulocyte % 16.1 % (0.5-2.0)
[2022-10-16 12:21] LABS: LAB Peripheral Smear Sent for Review
[2022-10-16 12:23] LABS: Troponin(5th) Baseline 848 ng/L (0-15)
[2022-10-16] MEDS: meropenem 1,000 MG in sodium chloride 0.9% (plus) 50 ML 100 MG IV ×2 (12:28→19:40)
[2022-10-16 12:30] LABS: Add Urine Microscopic? YES; Bilirubin Urine Neg (Negative); Blood Urine 3+ (Negative); Glucose Urine UA 4+ (Normal); Ketones Urine Negative (Negative); Leukocyte Esterase Urine 1+ (Negative); Nitrate Urine Negative (Negative); Protein Urine Trace (Negative); Specific Gravity, Urine 1.005 (1.005-1.030); Urine Appearance Cloudy (CLEAR); Urine Color Straw (Yellow); Urobilinogen Urine Norm (Negative); pH Urine 5 (5-7)
[2022-10-16 12:31] LABS: Add Urine Culture? No; Bacteria Urine 1+ /hpf; RBC Urine >100 /hpf (0-2); Squamous Epithelial Cell Urine 0-4 /hpf (0-5)
[2022-10-16 12:33] LABS: Procalcitonin 0.39 ng/mL (0-0.5); Thyroid Stimulating Hormone 1.94 uIU/mL (0.27-4.20)
[2022-10-16 12:45] LABS: Ferritin 55 ng/mL (30-400); Iron 11 ug/dL (59-158); Lactate Dehydrogenase 214 U/L (135-225); Percent Saturation 3.2 % (20-50); Total Iron Binding Capacity 338 mcg/dl; Unsaturated Iron Binding 327 ug/dL (112-347)
[2022-10-16 12:59] LABS: Vitamin B12 > 2000 pg/mL (232-1245)
--- NOTE | 2022-10-16 13:02 | CTR_ITS ---
PROCEDURE INFORMATION: Exam: CT Abdomen And Pelvis Without Contrast Exam date and time: 10/16/2022 3:08 PM Age: 72 years old Clinical indication: Other: Hematuria TECHNIQUE: Imaging protocol: Computed tomography of the abdomen and pelvis without contrast. 538image(s) are provided. Radiation optimization: All CT scans at this facility use at least one of these dose optimization techniques: automated exposure control; mA and/or kV adjustment per patient size (includes targeted exams where dose is matched to clinical indication); or iterative reconstruction. Other technique: Axial images are available with sagittal and coronal reconstruction views. Automated dose exposure control is utilized. The DLP is 969.24. REPORTING DATA: Count of CT and Cardiac NM exams in prior 12 months: This patient has received [address] and 0 known cardiac nuclear medicine studies in the 12 months prior to the current study. COMPARISON: 1. CT ang ches abdpel [id number] 07/31/2022 11:[address] angio chest PE protcl [id number] 10/16/2022 3:08 PM RADIATION DOSE METRICS: Total DLP (mGy-cm): 594 FINDINGS: Tubes, catheters and devices: There is a bladder catheter present. Liver: There appears to be some hepatic steatosis. Gallbladder and bile ducts: Gallbladder is contracted with some calcific sludge. Pancreas: No interval pancreatic ductal dilatation is currently appreciated. There is some minimal chronic pancreatic level calcification. Some vascular calcification could also present in this fashion similar overall. Spleen: Unremarkable. Adrenal glands: Unremarkable. Kidneys and ureters: No radiopaque obstructive renal calculus or hydronephrosis is appreciated. There is some similar hyperdense subcentimeter cystic type appearance about the right renal margin. Stomach and bowel: Some aspects of the colon are undistended. This may also be peristaltic related.There is abundant stool present limiting mucosal detail evaluation.The bowel gas pattern appears nonobstructive. There is a small sliding-type hiatal hernia demonstrated with slight gastroesophageal fold thickening. There is some marginal lipomatous eventration of the periumbilical space on the right with no interval bowel or fluid currently appreciated. There is some questionable wall thickening although incompletely included about the anal verge and rectal margin. There is some medial positioning of the cecum. Appendix: The appendix is not definitively identified for evaluation although no adjacent fluid collections are currently appreciated. Intraperitoneal space: There is some mesenteric and omental stranding. No free air or abdominal fluid organized collections are currently appreciated. Vasculature: No interval abdominal aortic saccular aneurysmal dilatation is appreciated with the advanced atherosclerotic calcific appearance overall Lymph nodes: There are subcentimeter predominant para-aortic and mesenteric lymph nodes overall present. Urinary bladder: The bladder is incompletely fluid filled for evaluation which may exagerate the wall thickness. This can also be seen with post inflammation sequela. There is some bladder air present. Reproductive: There is some slight prostate hypertrophy. Bones/joints: Osseous alignment is maintained.No interval displaced fracture or dislocation is appreciated.There is spotty and heterogeneous decreased bone mineralization overall. There is multilevel spurring and disc space narrowing overall of the lumbar spine contributing to some neural foraminal narrowing. Soft tissues: No radiopaque foreign body or subcutaneous emphysema is appreciated. There is subcutaneous edema overall. Other findings: There is some motion artifact present. No other significant interval changes are appreciated. Similar. PROCEDURE INFORMATION: CT/CT kidney stone [id number] IMPRESSION: 1. There is irregular bladder wall thickening and stranding overall with a bladder catheter present as well as bladder air. This could be seen with inflammatory related sequela although processes including neoplasm could also present in this fashion. Consider direct visualization and cystoscopy. 2. No interval radiopaque obstructive renal calculus or hydronephrosis is appreciated. 3. The gallbladder is contracted with some calcific sludge. This may exaggerate the wall thickness. Some early inflammation could also present in this fashion. Consider right upper quadrant ultrasound. 4. There is some questionable wall thickening although incompletely included about the anal verge and rectal margin. Correlate with the patient's exam. COMMENTS: Consistent with the [employer]'s Incidental Findings Committee white paper (J Am Aparna Radiol 2018): Any incidental renal lesion less than 1 cm or classified as too small to characterize, or any incidental cystic renal lesion characterized as simple-appearing, is likely benign. No follow-up imaging is recommended for these lesions per consensus recommendations based on imaging criteria.
[2022-10-16 13:34] LABS: Troponin 5 2HR 950.1 ng/L (0-15); Troponin 5 2HR Delta 102.1 ABS# (0-10)
[2022-10-16 13:55] LABS: Glucose Point of Care 445 mg/dL (70-110)
[2022-10-16] MEDS: insulin lispro 100 unit/1 mL SUBCUT ×3 (13:56→21:02)
--- NOTE | 2022-10-16 14:50 | CTR_ITS ---
PROCEDURE INFORMATION: Exam: CTA Chest With Contrast Exam date and time: 10/16/2022 3:08 PM Age: 72 years old Clinical indication: Other: Hypertension; Additional info: Severe pulmonary hypertension, rv dysfunction on echo.No history of trauma or recent surgery is provided. TECHNIQUE: Imaging protocol: Computed tomographic angiography of the chest with contrast. Exam focused on the arteries. 916image(s) are provided. 3D rendering (Not supervised by radiologist): MIP and/or 3D reconstructed images were created by the technologist. Radiation optimization: All CT scans at this facility use at least one of these dose optimization techniques: automated exposure control; mA and/or kV adjustment per patient size (includes targeted exams where dose is matched to clinical indication); or iterative reconstruction. Contrast material: OMNI 350; Contrast volume: 100 ml; Contrast route: INTRAVENOUS (IV); Other technique: Axial images are available with sagittal and coronal reconstruction views. Automated dose exposure control is utilized. The DLP is 969.24. REPORTING DATA: Count of CT and Cardiac NM exams in prior 12 months: This patient has received [address] and 0 known cardiac nuclear medicine studies in the 12 months prior to the current study. COMPARISON: 1. CT ang ches abdpel [id number] 07/31/2022 11:50 PM 2. CR (CHEST, ) 10/16/2022 7:[address] kidney stone [id number] 10/16/2022 3:08 PM RADIATION DOSE METRICS: Total DLP (mGy-cm): 323.7 FINDINGS: Pulmonary arteries: No central pulmonary thromboembolism is appreciated. Subsegmental evaluation is motion limited. Aorta: There are aortic root and mitral apparatus calcifications present. No interval thoracic aortic saccular aneurysmal type dilatation is currently appreciated. The ascending aorta measures approximally 3.7 cm in diameter. Thyroid: There is some slight thyroid heterogeneity. Tracheobronchial tree: The central airways are grossly patent. There are some mucous and stranding type fluid changes for example including of the ree. Lungs: There are some questionable filling areas and could also represent fluid or aspiration related sequela for example including the lower lobes and lingula predominant. There is some mild air trapping appearance overall similar with some apical blebs. There is some patchy atelectatic consolidation also present with mid to lower distribution predominance. There is some pneumatocele or bleb type averaging of the medial left lung base. There is also some central interstitial edematous type appearance with no overt cardiac decompensation currently appreciated. This can also be seen with chronic pulmonary hypertension. There are some chronic granulomatous type calcifications present. Some of the hilar and mediastinal margins are obscured. Pleural spaces: No pneumothorax is appreciated. There is a moderate to large amount of pleural fluid demonstrated bilaterally left slightly more so than right. Heart: There is cardiac chamber enlargement overall left more so than right. Lymph nodes: There are borderline mediastinal and hilar lymph nodes overall present including some with calcification and overall granulomatous appearance of the left hilum and perihilar space similar. There is a prevascular lymph node which measures approximately 2.4 x 1.3 cm. Intraperitoneal space: The intraperitoneal space abdominal findings correlates with the dedicated CT abdomen description same day. Bones/joints: Osseous alignment is maintained.No interval displaced fracture or dislocation is appreciated.There is slightly decreased bone mineralization overall. Soft tissues: No radiopaque foreign body or subcutaneous emphysema is appreciated. There is some slight subcutaneous edematous appearance overall. There is some fluid or sebaceous type cystic averaging of the posterior soft tissues similar. Other findings: There is some motion artifact present. No other significant interval changes are appreciated. CT/CT angio chest PE protcl [id number] IMPRESSION: 1. No interval pulmonary thromboembolism is appreciated. 2. There is a moderate to large amount of pleural fluid demonstrated left more so than right. There is also some patchy atelectatic consolidation adjacent which could represent some multifocal inflammation or aspiration related sequela.
[2022-10-16] MEDS: iohexol 350 mg/mL 500 mL Btl (per mL) IV (15:18)
[2022-10-16] MEDS: sodium chloride 0.9% 100 mL Bag 50 ML IV (15:35)
--- NOTE | 2022-10-16 16:46 | ECG_ITS ---
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 Measurements Intervals [place] Rate: 69 P: 69 [place]: 147 QRS: 36 QRSD: 98 T: 269 QT: 371 QTc: 398 Interpretive Statements SINUS RHYTHM ST DEVIATION AND MODERATE T-WAVE ABNORMALITY, CONSIDER ANTEROLATERAL ISCHEMIA [-0.1+ mV T-WAVE IN V3-V6] ST DEVIATION AND MODERATE T-WAVE ABNORMALITY, CONSIDER INFERIOR ISCHEMIA [-0.1+ mV T-WAVE IN II/aVF] Compared to ECG 10/16/2022 14:45:10 No significant changes Electronically Signed On 10-17-2022 8:30:15 CDT by Se Pringle M.D. [id number]
[2022-10-16 16:54] LABS: Glucose Point of Care 357 mg/dL (70-110)
--- NOTE | 2022-10-16 16:55 | ECG_ITS ---
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 Measurements Intervals [place] Rate: 72 P: 74 PA: 150 QRS: 49 QRSD: 103 T: -79 QT: 399 QTc: 437 Interpretive Statements SINUS RHYTHM ST DEVIATION AND MODERATE T-WAVE ABNORMALITY, CONSIDER LATERAL ISCHEMIA [-0.1+ mV T-WAVE IN I/aVL/V5/V6] ST DEVIATION AND MODERATE T-WAVE ABNORMALITY, CONSIDER INFERIOR ISCHEMIA [-0.1+ mV T-WAVE IN II/aVF] Compared to ECG 10/16/2022 08:43:19 No significant changes Electronically Signed On 10-17-2022 8:30:33 CDT by Se Pringle M.D. [id number]
[2022-10-16 18:14] LABS: Hematocrit 27.8 % (42.0-52.0)
--- NOTE | 2022-10-16 18:26 | PC.NURSE ---
Pt taken to CT. He remains minimally responsive. Tolerated well.
[2022-10-16 20:22] LABS: Troponin 5 6HR 1146 ng/L (0-15); Troponin 5 6HR Delta 298 ng/L (0-12)
[2022-10-16 21:03] LABS: Glucose Point of Care 198 mg/dL (70-110)
[2022-10-17] VITALS (64 sets, daily range): BP systolic 82–123; BP diastolic 32–84; PULSE 77–91; RESP 14–23; TEMP 36.3–37.9; O2SAT 93–100; BMI 31.0
--- NOTE | 2022-10-17 00:04 | ECG_ITS ---
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 Measurements Intervals [place] Rate: 80 P: 41 [place]: 131 QRS: 32 QRSD: 98 T: -85 QT: 332 QTc: 383 Interpretive Statements SINUS RHYTHM ST DEVIATION AND MODERATE T-WAVE ABNORMALITY, CONSIDER LATERAL ISCHEMIA [-0.1+ mV T-WAVE IN I/aVL/V5/V6] Compared to ECG 10/16/2022 16:46:27 No significant changes Electronically Signed On 10-17-2022 8:21:08 CDT by Joy Galvan M.D. [email or web address]/store/[id number]
[2022-10-17] MEDS: morphine 4 mg/mL SDV 1 mL 2 MG IVP (00:29)
--- NOTE | 2022-10-17 00:30 | PC.NURSE ---
Chest Pain Patient complaining of left sided chest pain and shortness of breath. All vitals stable; no new EKG changes noted. Dr. Ruelas contacted and order received for 2 mg morphine IVP PRN Q4H for pain and a single troponin lab draw to add on to morning labs. See MAR for details.
[2022-10-17 03:51] LABS: Basophils # 0.1 10^3/uL (0.0-0.1); Basophils % 0.4 %; Eosinophils # 0.1 10^3/uL (0.0-0.8); Eosinophils % 0.4 %; Hemoglobin 9.3 g/dL (11.7-16.6); Lymphocytes # 0.9 10^3/uL (0.8-4.8); Lymphocytes % 5.2 %; Mean Corpuscular HGB Conc 28.2 g/dL (30.0-36.0); Mean Corpuscular Hemoglobin 29.6 pg (28.0-34.0); Mean Corpuscular Volume 105.1 fl (80-94); Monocytes # 1.5 10^3/uL (0.2-0.9); Monocytes % 8.5 %; Neutrophils # 15.15 10^3/uL (1.8-7.7); Neutrophils % 84.9 %; Nucleated Red Blood Cells % 0.2 %; Platelet Count 524 10^3/cmm (130-400); Red Blood Count 3.14 10^6/uL (4.1-5.3); Red Cell Distribution Width 17.3 % (12.1-15.1); White Blood Count 17.9 10^3/uL (4.0-10.0)
[2022-10-17 04:18] LABS: Alanine Aminotransferase 29 U/L (0-41); Albumin Level 3.2 g/dL (3.5-5.2); Alkaline Phosphatase 161 U/L (40-130); Aspartate Amino Transferase 55 U/L (0-40); Blood Urea Nitrogen 23 mg/dL (8-23); Carbon Dioxide 21 mmol/L (22-29); Chloride 106 mmol/L (98-107); Glucose 104 mg/dL (65-115); Magnesium 2.4 mg/dL (1.7-2.3); Osmolality Calculated 294 mOsm/kg (285-295); Sodium 140 mmol/L (136-145); Total Bilirubin 0.4 mg/dL (0.15-1.2); Total Protein 6.2 g/dL (6.6-8.7)
[2022-10-17 04:24] LABS: Troponin T (5th) Once 1297 ng/L (0-15)
[2022-10-17] MEDS: meropenem 1,000 MG in sodium chloride 0.9% (plus) 50 ML 100 MG IV ×3 (04:48→20:09)
[2022-10-17 07:11] LABS: Glucose Point of Care 134 mg/dL (70-110)
[2022-10-17] MEDS: sodium chloride 0.9% 250 ML IV (07:37)
[2022-10-17] MEDS: ipratropium-albuterol 3 mL Neb INHALATION (08:48)
[2022-10-17] MEDS: budesonide 0.5 mg/2 mL Neb INHALATION ×2 (08:48→19:42)
--- NOTE | 2022-10-17 09:08 | P.CONIM_ITS ---
Providers/Reason For Consult Consulting Physician/Specialty*: Sima Ramesh MD General Surgery Reason for Consult*: GI bleed Requesting Physician: Gómez Nova MD Attending Physician: Gómez Nova MD Primary Care Provider: MALOU Najera History of Present Illness History of Present Illness Allan Hardin is a 72 year old male with a history of anemia requiring transfusion and melanotic stools for over a year. He has had intermittent abdominal pain and vomiting. He has had hematemesis as well as coffee-ground emesis in the past 3 or 4 months. He has had no george hematochezia. He has not had prior upper endoscopy. His PCP deferred endoscopic evaluation when anemia resolved due to his comorbidities. He had a CTA two months ago showed increased density in the cecum and right colon concerning for possible colonic bleed. He is admitted now with critical anemia and has evidence of an NSTEMI. Review of Systems Const: Denies: fever(s), chills, change in appetite or change in weight Resp: Reports: other (no history of anesthetic complications) GI: Reports: abdominal pain, hematemesis and melena Patrick/Lymph: Reports: easy bleeding (on Plavix and ASA for peripheral stent over a year ago, no cardiac stents) Medications/Allergies Home Medications Medication Instructions Recorded Confirmed Last Taken Type dapagliflozin 10 mg tablet 10 mg PO DAILY 09/17/19 10/16/22 10/16/22 History (Farxiga) ferrous sulfate 325 mg (65 mg 325 mg PO BID 09/17/19 10/16/22 10/16/22 History iron) tablet glyburide 5 mg tablet 5 mg PO BID 09/17/19 10/16/22 10/16/22 History insulin glargine 100 unit/mL See Rx Instructions .Route .COMPLEX 09/17/19 10/16/22 10/16/22 History subcutaneous solution (Lantus U-100 Insulin) ascorbic acid (vitamin C) 500 mg 500 mg PO DAILY 06/09/20 10/16/22 10/16/22 History capsule atorvastatin 40 mg tablet 40 mg PO DAILY #90 tabs 06/07/21 10/16/22 10/16/22 Rx aspirin 81 mg chewable tablet 81 mg PO DAILY 09/26/21 10/16/22 10/16/22 History isosorbide mononitrate 30 mg 30 mg PO DAILY #90 tabs 09/26/21 10/16/22 10/16/22 Rx tablet,extended release 24 hr gemfibrozil 600 mg tablet 600 mg PO BID #180 tabs 01/10/22 10/16/22 10/16/22 Rx clopidogrel 75 mg tablet 75 mg PO DAILY #90 tabs 06/19/22 10/16/22 10/16/22 Rx atenolol 25 mg tablet 25 mg PO DAILY #90 tabs 07/05/22 10/16/22 10/16/22 Rx fenofibrate 160 mg tablet 160 mg PO DAILY #90 tabs 07/05/22 10/16/22 10/16/22 Rx cyanocobalamin (vitamin B-12) 1,000 mcg PO DAILY 09/13/22 10/16/22 10/16/22 History 1,000 mcg tablet omeprazole 40 mg capsule,delayed 40 mg PO DAILY 09/13/22 10/16/22 10/16/22 History release digoxin 125 mcg (0.125 mg) tablet 125 mcg PO DAILY #90 tabs 10/12/22 10/16/22 10/16/22 Rx (Digox) furosemide 40 mg tablet 60 mg PO DAILY PRN Edema 10/16/22 10/16/22 10/16/22 History omega-3 fatty acids-fish oil 360 1 cap PO BID 10/16/22 10/16/22 10/16/22 History mg-1,200 mg capsule (Fish Oil) potassium chloride 20 mEq 30 meq PO DAILY 10/16/22 10/16/22 10/16/22 History tablet,extended release(part/cryst) pregabalin 100 mg capsule 100 mg PO BID 10/16/22 10/16/22 10/16/22 History Allergies Allergy/AdvReac Type Severity Reaction Status Date / Time Penicillins Allergy Unknown Unknown Verified 10/16/22 08:17 Current Medications Generic Name Dose Route Start Last Admin Trade Name Freq PRN Reason Stop Dose Admin Albuterol/Ipratropium 3 ml 10/16/22 11:29 10/17/22 08:48 Ipratropium-Albuterol 3 Ml Neb INHALATION 3 ml Q4H.RESPIRATORY PRN Administration SHORTNESS OF BREATH Atorvastatin Calcium 40 mg 10/17/22 09:00 10/17/22 09:03 Atorvastatin 40 Mg Tablet PO Not Given DAILY FAUZIA Budesonide 0.5 mg 10/16/22 20:00 10/17/22 08:48 Budesonide 0.5 Mg/2 Ml Neb INHALATION 0.5 mg BID.RESPIRATORY FAUZIA Administration Meropenem 1,000 mg/ Sodium 50 mls @ 100 mls/hr 10/16/22 12:00 10/17/22 05:49 Chloride IV Infused Q8H FAUZIA Infusion Protocol Norepinephrine Bitartrate 4 mg 254 mls @ 0 mls/hr 10/16/22 14:45 10/17/22 04:50 / Dextrose IV 6 mcg/min .Q0M FAUZIA 22.86 mls/hr Administration Protocol Per Protocol Insulin Human Lispro 0 unit 10/16/22 12:00 10/17/22 07:34 Insulin Lispro 100 Unit/1 Ml SUBCUT Not Given WM&BEDTIME FAUZIA Protocol Morphine Sulfate 2 mg 10/17/22 00:24 10/17/22 00:29 Morphine 4 Mg/Ml Sdv 1 Ml IVP 2 mg Q4H PRN Administration SEVERE PAIN Pantoprazole Sodium 40 mg 10/16/22 11:00 10/16/22 22:20 Pantoprazole 40 Mg Sdv IVP 40 mg Q12H FAUZIA Administration Sodium Chloride 50 ml 10/16/22 10:05 10/16/22 15:35 Sodium Chloride 0.9% 100 Ml Bag IV 10/17/22 10:05 50 ml PRN PRN Administration Blood transfusion prime and flush PFSH Acute PFSH: Medical History (Updated 10/16/22 @ 11:37 by Gómez Nova MD) CAD (coronary artery disease) Diabetes mellitus Former smoker History of MD (myocardial infarction) Lymphedema Macrocytic anemia PAD (peripheral artery disease) Phimosis Unable to ambulate Venous insufficiency Surgical History S/P appendectomy S/P peripheral artery angioplasty with stent placement Family History Brother Diabetes Mother Diabetes Sister Diabetes Father Stroke Social History Smoking and tobacco status: former smoker Quit status (tobacco): has quit using tobacco Year quit tobacco: 4 ya Alcohol intake: former Substance/Drug Use: never Lives independently: No Household members: spouse Marital status: Current occupational status: disabled Vitals/I&O/Wt Last Vital Signs Temp 98.8 F 10/17/22 03:30 Pulse 86 10/17/22 08:00 Resp 16 10/17/22 08:00 BP 86/50 10/17/22 06:45 Pulse Ox 98 10/17/22 08:00 O2 Del Method Nasal Cannula 10/17/22 08:00 O2 Flow Rate 3 10/17/22 08:00 10/16/22 10/17/22 10/17/22 22:59 06:59 14:59 Intake Total 497.879 / 847.879 250.025 / 1097.904 Output Total 1800 / 1800 1225 / 3025 Balance -1302.121 / -952.121 -974.975 / -1927.096 Weight last 48 hrs Weight 192 lb 8 oz Weight 160 lb Physical Exam Const: COMMON NORMALS: no acute distress and alert Resp: COMMON NORMALS: normal respiratory effort and clear to auscultation bilaterally AUSCULTATION: clear to auscultation bilaterally Cardio: COMMON NORMALS: regular rate, regular rhythm, S1 normal heart sound present and S2 normal heart sound present RATE: regular rate RHYTHM: regular rhythm HEART SOUNDS: S1 normal heart sound present and S2 normal heart sound present GI: COMMON NORMALS: Soft to palpation and non-tender INSPECTION: Yes scar (lower midline) PALPATION: Yes Soft to palpation Extremity: GENERAL: Yes edema (bilateral lower extremity right>left) Neuro: SENSORIUM/ORIENTATION: Yes alert Urinary Catheter Management: Wu: Cath Placed During This Visit: yes Reason for Continuing Indwelling Catheter: Accurate Measurement of Urinary Ou tput in Critically Ill Patients Urinary Catheter Date of Insertion: 10/16/22 Urinary Catheter Time of Insertion: 11:09 Data 10/17/22 03:26 10/17/22 03:26 Micro: Microbiology 10/16/22 11:20 Urine Culture - Preliminary Urine Catheterized Gram Negative Rods 10/16/22 11:15 Blood Culture - Preliminary Blood SPECIMEN COLLECTED 10/16/22 11:15 Blood Culture - Preliminary Blood SPECIMEN COLLECTED A&P Assessment and plan (1) Upper GI bleeding: Clinically appears to be an upper GI bleed with chronic anemia, although imaging concern for possible lower GI source. Would recommend EGD first and consider colonoscopy only if EGD is negative in order to avoid metabolic derangement from bowel prep unless absolutely necessary. Await cardiology consultation for risk stratification relative to NSTEMI and to coordinate timing of interventions. Coding Level of Care Code Acute Code for Chg Fwd Diagnoses Upper GI bleeding K92.2
--- NOTE | 2022-10-17 09:52 | XR_ITS ---
WS: [id number] Exam: XR chest 1V portable [id number] Date/Time of Exam: 10/17/2022 11:24 AM Reason For Exam: PICC placement Comparison 10/16/2022. A right sided PICC line has been placed and ends in the lower one third of the SVC in good position. The lungs remain fully expanded. The heart is mildly enlarged and there is pulmonary vascular congest ion and pulmonary edema suggesting CHF. Left basal pleural effusion is noted. The mediastinum is norm al in contour. Bony structures are intact. Monitoring leads superimpose the chest. XR/XR chest 1V portable [id number] IMPRESSION: 1. Right-sided PICC line ending in the lower one third of the SVC in satisfacto ry position. 2. Mild cardiac enlargement with signs of congestive heart failure.
--- NOTE | 2022-10-17 10:56 | P.PN_ITS ---
Subjective Subjective: More responsive this morning. No bowel movements noted overnight. No hematemesis. Had an episode of chest discomfort overnight, alleviated with morphine. Denies being short of breath this morning. Medications: Reviewed: Yes Vitals/I&O/Wt Last Vital Signs Temp 98.8 F 10/17/22 03:30 Pulse 91 10/17/22 10:00 Resp 20 H 10/17/22 10:00 BP 112/60 10/17/22 10:00 Pulse Ox 100 10/17/22 10:00 O2 Del Method Nasal Cannula 10/17/22 08:00 O2 Flow Rate 3 10/17/22 08:00 10/16/22 10/17/22 10/17/22 22:59 06:59 14:59 Intake Total 497.879 / 847.879 250.025 / 1097.904 Output Total 1800 / 1800 1225 / 3025 Balance -1302.121 / -952.121 -974.975 / -1927.096 Weight last 48 hrs Weight 87.317 kg Weight 72.575 kg Physical Exam Narrative: General exam tachypnea, no distress, sleepy appearing Neck is supple no lymphadenopathy thyromegaly Cardiovascular regular rate and rhythm without murmur Lungs diminished breath sounds bilaterally Abdomen is soft nontender positive bowel sounds. No obvious organomegaly exam demonstrates Wu Extremities plus edema, lymphedema. No cyanosis or clubbing Urinary Catheter Management: Wu: Cath Placed During This Visit: yes Reason for Continuing Indwelling Catheter: Accurate Measurement of Urinary Output in Critically Ill Patients Urinary Catheter Date of Insertion: 10/16/22 Urinary Catheter Time of Insertion: 11:09 Data 10/17/22 03:26 10/17/22 03:26 Other Labs: Last troponin 1297 CTA yesterday demonstrated no thromboembolism. Moderate pleural fluid bilaterally CT abdomen pelvis demonstrates no renal obstruction Urine is growing gram-negative rods Venous duplex no DVT Echo EF preserved, 1/4 diastolic dysfunction, severe pulmonary hypertension, moderate tricuspid regurgitation, right ventricle dilated with global hypokinesia EKG done last night during episode of chest discomfort demonstrated no significant changes from prior. I reviewed this personally Micro: Microbiology 10/16/22 11:20 Urine Culture - Preliminary Urine Catheterized Gram Negative Rods 10/16/22 11:15 Blood Culture - Preliminary Blood SPECIMEN COLLECTED 10/16/22 11:15 Blood Culture - Preliminary Blood SPECIMEN COLLECTED A&P Assessment and plan (1) Acute anemia: Patient has what appears to be acute on chronic severe anemia. He has refused work-up in the past, but reports he is amenable now. This is likely a mixed etiology. Certainly history is consistent with acute upper GI bleeding. However, his MCV is markedly elevated bringing into question possibility of other etiologies such as B12 or folate deficiency, myelodysp lasia, cirrhosis. Note that his ammonia level is normal. INR is slightly high but not severely so. Transfused 2 units of packed red blood cells, hemoglobin is now stable at 9.3 CBC in the morning Discontinue Plavix and aspirin currently No evidence of hemolysis Serum protein electrophoresis pending Iron saturation significantly low. Consistent with severe iron deficiency. Will go ahead and transfuse iron. (2) Upper GI bleeding: Patient presents with history of hematemesis 5 days ago, and then melena Continue to hold Plavix and aspirin No anticoagulation currently After stabilization consider endoscopy if he will allow Protonix 40 mg IV every 12 hours Surgery consult for possible endoscopy (3) Encephalopathy acute: Patient has acute encephalopathy currently. This is likely secondary to his severe anemia, congestive heart failure, UTI. This is improved. Hold Lyrica. (4) Hypotension: When I evaluated the patient he had hypotension. He is currently still on norepinephrine. This may be secondary to UTI, and can be complicated by the fact he has severe pulmonary hypertension and RV dysfunction. Although bilateral pleural effusions were noted, he was given volume with blood yesterday and is getting a slight amount of IV fluid today. If RV dysfunction clinically improves, would try to diurese considering his bilateral pleural effusions seen on CT Wean norepinephrine as tolerated Hold beta-octavio, Imdur currently (5) Congestive heart failure, acute: Patient has evidence of acute congestive heart failure. BNP is elevated. He has significant peripheral edema although he carries a diagnosis of venous stasis as well. Echocardiogram findings as above Serial troponins consistent with non-ST elevation myocardial infarction Continue statin Holding aspirin, Plavix secondary to GI bleeding Obtain cardiology consultation. Obviously with his comorbid conditions complicate work-up CBC, BMP, magnesium in the morning (6) Hyperkalemia: Improved/resolved Plan UTI. Urine growing gram-negative lalo. Continue meropenem. Await culture. DM initiate sliding scale insulin Venous stasis. Venous duplex negative for DVT Multiple other medical problems as outlined in past medical history Full code SCDs for DVT prophylaxis, anticoagulation contraindicated secondary to GI bleed I discussed in detail my concerns with both consulting physicians from surgery and cardiology. Attestations Medical Necessity Statement*: Needs continued hospitalization secondary to GI bleed, non-ST elevation myocardial infarction, encephalopathy, acute congestive heart failure, hypotension requiring norepinephrine Critical Care Time: The high probability of a clinically significant, sudden or life threatening deterioration of the patient's [pulmonary, cardiac, neurologic, infectious] system(s) required my full and direct attention, intervention and personal management. The critical care time is as shown. This time is in addition to time spent performing any reported procedures but includes the following: [x] Data and vital sign review and interpretation [x] Patient assessment, examination and intervention [x] Documentation [x] Medication orders and management Critical Care Time (min): 41 Coding Level of Care Code Critical Care >/= 30 minutes Critical care time (in minutes): 41 The high probability of a clinically significant, sudden or life threatening deterioration, as referenced in this documentation, required my full and direct attention, intervention and personal management. The critical care time shown is in addition to time spent performing any reported separately billable procedures and includes the following: [x] Data and vital sign review and interpretation [x ] Patient assessment, examination and intervention [x] Medication orders and management [x] Patient/Family updates as able [x] Care Coordination and Documentation. Diagnoses Acute anemia D64.9 Upper GI bleeding K92.2 Encephalopathy acute G93.40 Hypotension I95.9 Congestive heart failure, acute I50.9 Hyperkalemia E87.5 Time Spent (min) 41
[2022-10-17] MEDS: iron sucrose 200 MG in sodium chloride 0.9% (100 ml) 100 ML 220 MG IV (12:17)
[2022-10-17] MEDS: pantoprazole 40 mg SDV IVP (12:17)
[2022-10-17 12:31] LABS: Glucose Point of Care 124 mg/dL (70-110)
--- NOTE | 2022-10-17 12:32 | P.CONIM_ITS ---
Providers/Reason For Consult Consulting Physician/Specialty*: Dr. Galvan, Cardiology Reason for Consult*: NSTEMI Attending Physician: Gómez Nova MD Primary Care Provider: MALOU Najera History of Present Illness History of Present Illness Allan Hardin is a 72 year old male with PMHx of PAD s/p successful percutaneous balloon angioplasty followed by 3 overlapping ?Zilver drug-eluting stent placement from distal to proximal SFA through?retrograde popliteal approach in 06/2017, former smoker, chronic anemia requiring multiple blood pransfusions, b/l LE lymphedema, preserved LV systolic function by echo in 09/2016, DM-2, CAD (listed in history but none reported by patient/family) and multiple other medical problems . He was in the ER with c/o generalized weakness, lethargy and shortness of breath.? gives most of the history, as patient is limited secondary to lethargy.? He started vomiting some bright red blood f/b dark tarry stools.? He has had problems with anemia in the past for which he has refused work-up.? He was on plavix and ASA at home and follows up with Dr. Pringle in office.? He was in ER last month with Hb<5 and left AMA after blood transfusion.troponin T >800 that increased to >1200. EKG with ST-T wave changes in anterior and lateral leads. Review of Systems Const: Reports: fatigue ENMT: Denies: throat pain, bleeding gums or epistaxis Card: Reports: chest pain, edema, swelling of feet/ankles and lightheadedness; Denies: palpitations, irregular heart rhythm, syncope or orthopnea Resp: Denies: dyspnea, productive cough or non-productive cough GI: Reports: hematemesis and melena; Denies: abdominal pain, nausea, vomiting, diarrhea, constipation or hematochezia : Denies: hematuria Musc: Denies: back pain, extremity swelling, joint pain or muscle weakness Skin/Breast: Denies: rash Neuro: Denies: dizziness Psych: Denies: anxiety or depression Endo: Denies: tired all the time Patrick/Lymph: Denies: easy bruising or easy bleeding Medications/Allergies Home Medications Medication Instructions Recorded Confirmed Last Taken Type dapagliflozin 10 mg tablet 10 mg PO DAILY 09/17/19 10/16/22 10/16/22 History (Farxiga) ferrous sulfate 325 mg (65 mg 325 mg PO BID 09/17/19 10/16/22 10/16/22 History iron) tablet glyburide 5 mg tablet 5 mg PO BID 09/17/19 10/16/22 10/16/22 History insulin glargine 100 unit/mL See Rx Instructions .Route .COMPLEX 09/17/19 10/16/22 10/16/22 History subcutaneous solution (Lantus U-100 Insulin) ascorbic acid (vitamin C) 500 mg 500 mg PO DAILY 06/09/20 10/16/22 10/16/22 History capsule atorvastatin 40 mg tablet 40 mg PO DAILY #90 tabs 06/07/21 10/16/22 10/16/22 Rx aspirin 81 mg chewable tablet 81 mg PO DAILY 09/26/21 10/16/22 10/16/22 History isosorbide mononitrate 30 mg 30 mg PO DAILY #90 tabs 09/26/21 10/16/22 10/16/22 Rx tablet,extended release 24 hr gemfibrozil 600 mg tablet 600 mg PO BID #180 tabs 01/10/22 10/16/22 10/16/22 Rx clopidogrel 75 mg tablet 75 mg PO DAILY #90 tabs 06/19/22 10/16/22 10/16/22 Rx atenolol 25 mg tablet 25 mg PO DAILY #90 tabs 07/05/22 10/16/22 10/16/22 Rx fenofibrate 160 mg tablet 160 mg PO DAILY #90 tabs 07/05/22 10/16/22 10/16/22 Rx cyanocobalamin (vitamin B-12) 1,000 mcg PO DAILY 09/13/22 10/16/22 10/16/22 History 1,000 mcg tablet omeprazole 40 mg capsule,delayed 40 mg PO DAILY 09/13/22 10/16/22 10/16/22 History release digoxin 125 mcg (0.125 mg) tablet 125 mcg PO DAILY #90 tabs 10/12/22 10/16/22 10/16/22 Rx (Digox) furosemide 40 mg tablet 60 mg PO DAILY PRN Edema 10/16/22 10/16/22 10/16/22 History omega-3 fatty acids-fish oil 360 1 cap PO BID 10/16/22 10/16/2210/16/23 History mg-1,200 mg capsule (Fish Oil) potassium chloride 20 mEq 30 meq PO DAILY 10/16/22 10/16/22 10/16/22 History tablet,extended release(part/cryst) pregabalin 100 mg capsule 100 mg PO BID 10/16/22 10/16/22 10/16/22 History Allergies Allergy/AdvReac Type Severity Reaction Status Date / Time Penicillins Allergy Unknown Unknown Verified 10/16/22 08:17 Current Medications Generic Name Dose Route Start Last Admin Trade Name Freq PRN Reason Stop Dose Admin Albuterol/Ipratropium 3 ml 10/16/22 11:29 10/17/22 08:48 Ipratropium-Albuterol 3 Ml Neb INHALATION 3 ml Q4H.RESPIRATORY PRN Administration SHORTNESS OF BREATH Atorvastatin Calcium 40 mg 10/17/22 09:00 10/17/22 09:03 Atorvastatin 40 Mg Tablet PO Not Given DAILY FAUZIA Budesonide 0.5 mg 10/16/22 20:00 10/17/22 08:48 Budesonide 0.5 Mg/2 Ml Neb INHALATION 0.5 mg BID.RESPIRATORY FAUZIA Administration Meropenem 1,000 mg/ Sodium 50 mls @ 100 mls/hr 10/16/22 12:00 10/17/22 12:17 Chloride IV 100 mls/hr Q8H FAUZIA Administration Protocol Norepinephrine Bitartrate 4 mg 254 mls @ 0 mls/hr 10/16/22 14:45 10/17/22 04:50 / Dextrose IV 6 mcg/min .Q0M FAUZIA 22.86 mls/hr Administration Protocol Per Protocol Insulin Human Lispro 0 unit 10/16/22 12:00 10/17/22 12:19 Insulin Lispro 100 Unit/1 Ml SUBCUT Not Given WM&BEDTIME FAUZIA Protocol Morphine Sulfate 2 mg 10/17/22 00:24 10/17/22 00:29 Morphine 4 Mg/Ml Sdv 1 Ml IVP 2 mg Q4H PRN Administration SEVERE PAIN Pantoprazole Sodium 40 mg 10/16/22 11:00 10/17/22 12:17 Pantoprazole 40 Mg Sdv IVP 40 mg Q12H FAUZIA Administration PFSH Acute PFSH: Medical History (Updated 10/17/22 @ 17:34 by Joy Galvan MD) CAD (coronary artery disease) Diabetes mellitus Former smoker History of IA (myocardial infarction) Lymphedema Macrocytic anemia PAD (peripheral artery disease) Phimosis Unable to ambulate Venous insufficiency Surgical History S/P appendectomy S/P peripheral artery angioplasty with stent placement Family History Brother Diabetes Mother Diabetes Sister Diabetes Father Stroke Social History Smoking and tobacco status: former smoker Quit status (tobacco): has quit using tobacco Year quit tobacco: 4 ya Alcohol intake: former Substance/Drug Use: never Lives independently: No Household members: spouse Marital status: Current occupational status: disabled Vitals/I&O/Wt Last Vital Signs Temp 98.8 F 10/17/22 03:30 Pulse 88 10/17/22 12:00 Resp 19 H 10/17/22 12:00 BP 109/48 10/17/22 12:00 Pulse Ox 93 10/17/22 12:00 O2 Del Method Nasal Cannula 10/17/22 08:00 O2 Flow Rate 3 10/17/22 08:00 10/16/22 10/17/22 10/17/22 22:59 06:59 14:59 Intake Total 497.879 / 847.879 250.025 / 1097.904 Output Total 1800 / 1800 1225 / 3025 Balance -1302.121 / -952.121 -974.975 / -1927.096 Weight last 48 hrs Weight 192 lb 8 oz Weight 160 lb Physical Exam Narrative: Gen: elderly man appearing older than stated age, NAD HEENT: No icterus, + pallor, laying propped up RS: CTA anteriorly, No wheezes or rales CVS: S1, S2 regular, No murmur, rub PA:soft, NT,ND Ext:b/l LE chronic lymphedema, 2+ pitting, woody 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 Urinary Catheter Management: Wu: Cath Placed During This Visit: yes Reason for Continuing Indwelling Catheter: Accurate Measurement of Urinary Output in Critically Ill Patients Urinary Catheter Date of Insertion: 10/16/22 Urinary Catheter Time of Insertion: 11:09 Data 10/17/22 03:26 10/17/22 03:26 Micro: Microbiology 10/16/22 11:15 Blood Culture - Preliminary Blood NEGATIVE TO DATE 10/16/22 11:15 Blood Culture - Preliminary Blood NEGATIVE TO DATE 10/16/22 11:20 Urine Culture - Preliminary Urine Catheterized Gram Negative Rods A&P Assessment and plan (1) NSTEMI (non-ST elevated myocardial infarction): He is a complex patient with NSTEMI likely type 1. However, type 2 in setting of demand ischemia in setting of anemia cannot be ruled out. Multiple CAD risk f actors of HTN, HLD, known PAD and DM-2. -Given recurrent GI bleed with no known prior w/u, he is at higher risk for major bleed if I take him for LHC +/- requiring AC and antiplatelets . No active CP, no RWMA on somewhat TDS study. However, LV function appears to be low normal. Moderate RV dysfunction with markedly increased PA pressure. No PE on CTA chest. -I recommend proceeding with scope with elevated risk and once stable will plan for further cardiac w/u -I discussed this with patient and and they are agreeable with plan -Unable to start AC/antiplatelets, beta blockers at this time -will repeat limited echo with [facility]. (2) Hypotension: (3) Encephalopathy acute: (4) PAD (peripheral artery disease): Plan GO bleed Acute on Chronic anemia DM-2 HLD Lymphedema Coding Level of Care Code 34465 Diagnoses NSTEMI (non-ST elevated myocardial infarction) I21.4 Hypotension I95.9 Encephalopathy acute G93.40 PAD (peripheral artery disease) I73.9
--- NOTE | 2022-10-17 12:33 | PC.NURSE ---
1015-PICC line inserted with minimal difficulty. Some trouble advancing catheter. Tip location in the lower 1/3 SVC
[2022-10-17 17:02] LABS: Glucose Point of Care 199 mg/dL (70-110)
[2022-10-17] MEDS: insulin lispro 100 unit/1 mL SUBCUT ×2 (17:17→20:35)
[2022-10-17 20:29] LABS: Glucose Point of Care 210 mg/dL (70-110)
[2022-10-18] VITALS (32 sets, daily range): BP systolic 94–126; BP diastolic 46–72; PULSE 73–89; RESP 14–20; TEMP 36.7; O2SAT 75–100
[2022-10-18] MEDS: pantoprazole 40 mg SDV IVP (00:43)
[2022-10-18 03:08] LABS: Basophils % 0.4 %; Eosinophils # 0.1 10^3/uL (0.0-0.8); Hematocrit 27.2 % (42.0-52.0); Hemoglobin 7.8 g/dL (11.7-16.6); Lymphocytes # 0.9 10^3/uL (0.8-4.8); Lymphocytes % 12.6 %; Mean Corpuscular HGB Conc 28.7 g/dL (30.0-36.0); Mean Corpuscular Hemoglobin 29.1 pg (28.0-34.0); Mean Corpuscular Volume 101.5 fl (80-94); Mean Platelet Volume 10.3 fL (7.4-10.4); Monocytes # 0.9 10^3/uL (0.2-0.9); Monocytes % 12.1 %; Neutrophils # 5.34 10^3/uL (1.8-7.7); Neutrophils % 73.6 %; Nucleated Red Blood Cells % 0.3 %; Platelet Count 330 10^3/cmm (130-400); Red Blood Count 2.68 10^6/uL (4.1-5.3); Red Cell Distribution Width 16.6 % (12.1-15.1); White Blood Count 7.3 10^3/uL (4.0-10.0)
[2022-10-18] MEDS: meropenem 1,000 MG in sodium chloride 0.9% (plus) 50 ML 100 MG IV (04:00)
[2022-10-18 06:55] LABS: Alanine Aminotransferase 18 U/L (0-41); Albumin Level 2.4 g/dL (3.5-5.2); Alkaline Phosphatase 109 U/L (40-130); Anion Gap 13.8 (5-19); Aspartate Amino Transferase 26 U/L (0-40); Blood Urea Nitrogen 16 mg/dL (8-23); Calcium 8.1 mg/dL (8.5-10.5); Carbon Dioxide 22 mmol/L (22-29); Chloride 108 mmol/L (98-107); Creatinine Clr Calc Pharmacy 86.7362; Globulin 3.4 g/dL (1.3-4.6); Glucose 107 mg/dL (65-115); Magnesium 2.2 mg/dL (1.7-2.3); Osmolality Calculated 292 mOsm/kg (285-295); Potassium 3.8 mmol/L (3.5-5.1); Sodium 140 mmol/L (136-145); Total Bilirubin 0.3 mg/dL (0.15-1.2); Total Protein 5.8 g/dL (6.6-8.7)
[2022-10-18] MEDS: budesonide 0.5 mg/2 mL Neb INHALATION (07:36)
[2022-10-18] MEDS: ipratropium-albuterol 3 mL Neb INHALATION (07:36)
--- NOTE | 2022-10-18 07:58 | P.PN_ITS ---
Subjective Subjective: Allan she does not have any abdominal pain. Denies passing any stool last night. Seems agreeable for EGD this morning. Denies any chest discomfort. Medications: Reviewed: Yes Vitals/I&O/Wt Last Vital Signs Temp 100.3 F H 10/17/22 20:00 Pulse 81 10/18/22 07:45 Resp 18 10/18/22 07:36 BP 117/60 10/18/22 06:30 Pulse Ox 99 10/18/22 07:36 O2 Del Method Nasal Cannula 10/18/22 07:36 O2 Flow Rate 2 10/18/22 07:36 10/17/22 10/18/22 10/18/22 22:59 06:59 14:59 Intake Total 862.606 / 912.606 Output Total 1600 / 1600 Balance 862.606 / 912.606 -1600 / -1600 Weight last 48 hrs Weight 90.718 kg Weight 87.317 kg Weight 72.575 kg Physical Exam Narrative: General exam no distress, on 2 L, Tmax 100.3, 700 negative Neck is supple no lymphadenopathy thyromegaly Cardiovascular regular rate and rhythm without murmur Lungs diminished breath sounds bilaterally Abdomen is soft nontender positive bowel sounds. No obvious organomegaly exam demonstrates Wu Extremities plus edema, lymphedema. No cyanosis or clubbing Urinary Catheter Management: Wu: Cath Placed During This Visit: yes Reason for Continuing Indwelling Catheter: Accurate Measurement of Urinary Output in Critically Ill Patients Urinary Catheter Date of Insertion: 10/16/22 Urinary Catheter Time of Insertion: 11:09 Data 10/18/22 02:39 10/18/22 06:23 Micro: Microbiology 10/16/22 11:15 Blood Culture - Preliminary Blood NEGATIVE TO DATE 10/16/22 11:15 Blood Culture - Preliminary Blood NEGATIVE TO DATE 10/16/22 11:20 Urine Culture - Preliminary Urine Catheterized Gram Negative Rods A&P Assessment and plan (1) Acute anemia: Patient has what appears to be acute on chronic severe anemia. He has refused work-up in the past, but reports he is amenable now. This is likely a mixed etiology. Certainly history is consistent with acute upper GI bleeding. However, his MCV is markedly elevated bringing into question possibility of other etiologies such as B12 or folate deficiency, myelodyspla garcía, cirrhosis. Note that his ammonia level is normal. INR is slightly high but not severely so. Transfused 2 units of packed red blood cells admission, hemoglobin is now stable at 7.8. Given concern of significant heart disease, will transfuse 1 unit. Lasix 20 mg IV prior to this unit. CBC in the morning Hold Plavix and aspirin currently No evidence of hemolysis Serum protein electrophoresis pending Iron saturation significantly low. Given iron transfusion 10/17 (2) Upper GI bleeding: Patient presents with history of hematemesis 5 days prior to admission, and then melena Continue to hold Plavix and aspirin No anticoagulation currently EGD being considered today Continue Protonix 40 mg IV every 12 hours Appreciate surgical consultation (3) Encephalopathy acute: Patient has acute encephalopathy currently. This is likely secondary to his severe anemia, congestive heart failure, UTI. This is improved. Hold Lyrica. (4) Hypotension: When I evaluated the patient he had hypotension. He is currently still on norepinephrine but only at 2 mcg. Try to wean off. This may be secondary to UTI, and can be complicated by the fact he has severe pulmonary hypertension and RV dysfunction. Although bilateral pleural effusions were noted, he was given volume as part of his resuscitation. Lasix 20 mg IV with blood transfusion today. If blood pressure can stay up, we will try to diurese slightly. Hopefully can wean off norepinephrine today. Hold beta-octavio, Imdur currently (5) Congestive heart failure, acute: Patient has evidence of acute congestive heart failure. BNP is elevated. He has significant peripheral edema although he carries a diagnosis of venous stasis as well. Echocardiogram findings as above Serial troponins consistent with non-ST elevation myocardial infarction Continue statin Holding aspirin, Plavix secondary to GI bleeding Appreciate cardiology consultation. Obviously with his comorbid conditions complicate work-up. Cardiology recommends proceeding with EGD CBC, BMP, magnesium in the morning (6) Hyperkalemia: Improved/resolved Plan UTI. Urine growing gram-negative lalo. Continue meropenem. Await culture. Tmax 100.3. Blood cultures negative to date. DM initiate sliding scale insulin Venous stasis. Venous duplex negative for DVT Multiple other medical problems as outlined in past medical history Full code SCDs for DVT prophylaxis, anticoagulation contraindicated secondary to GI bleed Discussed plan with patient and family. Attestations Medical Necessity Statement*: Needs continued hospital stay for hypotension requiring norepinephrine, evaluation of GI bleed, non-ST elevation myocardial infarction, transfusion for anemia Critical Care Time: The high probability of a clinically significant, sudden or life threatening deterioration of the patient's [cardiac, pulmonary, GI] system(s) required my full and direct attention, intervention and personal management. The critical care time is as shown. This time is in addition to time spent performing any reported procedures but includes the following: [x] Data and vital sign review and interpretation [x] Patient assessment, examination and intervention [x] Documentation [x] Medication orders and management Critical Care Time (min): 33 Coding Level of Care Code Critical Care >/= 30 minutes Critical care time (in minutes): 33 The high probability of a clinically significant, sudden or life threatening deterioration, as referenced in this documentation, required my full and direct attention, intervention and personal management. The critical care time shown is in addition to time spent performing any reported separately billable procedures and includes the following: [x] Data and vital sign review and interpretation [x ] Patient assessment, examination and intervention [x] Medication orders and management [x] Patient/Family updates as able [x] Care Coordination and Documentation. Diagnoses Acute anemia D64.9 Upper GI bleeding K92.2 Encephalopathy acute G93.40 Hypotension I95.9 Congestive heart failure, acute I50.9 Hyperkalemia E87.5 Time Spent (min) 33
[2022-10-18 08:22] LABS: Glucose Point of Care 119 mg/dL (70-110)
--- NOTE | 2022-10-18 08:34 | PM.PN ---
Subjective Subjective: No further stools or vomiting. Denies abdominal pain. Vitals/I&O/Wt Last Vital Signs Temp 100.3 F H 10/17/22 20:00 Pulse 81 10/18/22 07:45 Resp 18 10/18/22 07:36 BP 117/60 10/18/22 06:30 Pulse Ox 99 10/18/22 07:36 O2 Del Method Nasal Cannula 10/18/22 07:36 O2 Flow Rate 2 10/18/22 07:36 10/17/22 10/18/22 10/18/22 22:59 06:59 14:59 Intake Total 862.606 / 912.606 50 / 962.606 114.935 / 114.935 Output Total 1600 / 1600 Balance 862.606 / 912.606 50 / 962.606 -1485.065 / -1485.065 Weight last 48 hrs Weight 200 lb Weight 192 lb 8 oz Physical Exam Const: COMMON NORMALS: no acute distress Resp: COMMON NORMALS: normal respiratory effort GI: COMMON NORMALS: Soft to palpation and non-tender PALPATION: Yes Soft to palpation Urinary Catheter Management: Wu: Cath Placed During This Visit: yes Reason for Continuing Indwelling Catheter: Accurate Measurement of Urinary Output in Critically Ill Patients Urinary Catheter Date of Insertion: 10/16/22 Urinary Catheter Time of Insertion: 11:09 Data 10/18/22 02:39 10/18/22 06:23 Micro: Microbiology 10/16/22 11:15 Blood Culture - Preliminary Blood NEGATIVE TO DATE 10/16/22 11:15 Blood Culture - Preliminary Blood NEGATIVE TO DATE 10/16/22 11:20 Urine Culture - Preliminary Urine Catheterized Gram Negative Rods A&P Assessment and plan (1) Upper GI bleeding: I discussed with patient and family the 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 Patient is nearly off norepinephrine support. Getting one unit of blood today. I discussed the risks of endoscopy with the patient, including perforation and bleeding, which may require transfusion or surgery. All questions were answered to his satisfaction. He would like to proceed with upper endoscopy. Attestations Medical Necessity Statement*: Per hospitalist. Coding Level of Care Code Acute Code for [facility] Fwd Diagnoses Upper GI bleeding K92.2
--- NOTE | 2022-10-18 08:58 | ANES.PREANE2 ---
Pre-Anesthetic Assessment Height/Weight: Height 1.68 m Weight 90.718 kg Temp Pulse Resp BP Pulse Ox O2 Del Method O2 Flow Rate 100.3 F H 81 18 117/60 99 Nasal Cannula 2 10/17/22 20:00 10/18/22 07:45 10/18/22 07:36 10/18/22 06:30 10/18/22 07:36 10/18/22 07:36 10/18/22 07:36 Operation Date: 10/18/22 10:30 Proposed Procedures p EGD(Not Applicable) - Sima Ramesh MD Familial anesthetic complications: none Was Beta Juan taken within 24 hours: N/A Was Clonidine taken within 24 hours: N/A Last intake: > 8hrs Social No alcohol and No tobacco former smoker Exam alert, oriented x 3, clear to auscultation bilaterally and regular rate & rhythm Airway Mallampati: Class II Comments: Comments: full alexander CV/HEM Anemia (acute on chronic - s/p 2 units and about to receive 1 more pre-procedure), Coronary Artery Disease (balloon angioplasty and stents in 2017) and Myocardial Infarction (NSTEMI) severe pulmonary HTN w/ RV dysfunction Off levo Anesthetic Plan ASA status: 4 Anesthesia: Choice Other: May try for cetacaine throat spray and midazolam d/t severe pulmonary HTN, if unable to tolerate may require propofol bolus prn Medications/Allergies Home Medications Medication Instructions Recorded Confirmed Last Taken Type dapagliflozin 10 mg tablet 10 mg PO DAILY 09/17/19 10/16/22 10/16/22 History (Farxiga) ferrous sulfate 325 mg (65 mg 325 mg PO BID 09/17/19 10/16/22 10/16/22 History iron) tablet glyburide 5 mg tablet 5 mg PO BID 09/17/19 10/16/22 10/16/22 History insulin glargine 100 unit/mL See Rx Instructions .Route .COMPLEX 09/17/19 10/16/22 10/16/22 History subcutaneous solution (Lantus U-100 Insulin) ascorbic acid (vitamin C) 500 mg 500 mg PO DAILY 06/09/20 10/16/22 10/16/22 History capsule atorvastatin 40 mg tablet 40 mg PO DAILY #90 tabs 06/07/21 10/16/22 10/16/22 Rx aspirin 81 mg chewable tablet 81 mg PO DAILY 05/02/0910/16/22 10/16/22 History isosorbide mononitrate 30 mg 30 mg PO DAILY #90 tabs 09/26/21 10/16/22 10/16/22 Rx tablet,extended release 24 hr gemfibrozil 600 mg tablet 600 mg PO BID #180 tabs 01/10/22 10/16/22 10/16/22 Rx clopidogrel 75 mg tablet 75 mg PO DAILY #90 tabs 06/19/22 10/16/22 10/16/22 Rx atenolol 25 mg tablet 25 mg PO DAILY #90 tabs 07/05/22 10/16/22 10/16/22 Rx fenofibrate 160 mg tablet 160 mg PO DAILY #90 tabs 07/05/22 10/16/22 10/16/22 Rx cyanocobalamin (vitamin B-12) 1,000 mcg PO DAILY 09/13/22 10/16/22 10/16/22 History 1,000 mcg tablet omeprazole 40 mg capsule,delayed 40 mg PO DAILY 09/13/22 10/16/22 10/16/22 History release digoxin 125 mcg (0.125 mg) tablet 125 mcg PO DAILY #90 tabs 10/12/22 10/16/22 10/16/22 Rx (Digox) furosemide 40 mg tablet 60 mg PO DAILY PRN Edema 10/16/22 10/16/22 10/16/22 History omega-3 fatty acids-fish oil 360 1 cap PO BID 10/16/22 10/16/22 10/16/22 History mg-1,200 mg capsule (Fish Oil) potassium chloride 20 mEq 30 meq PO DAILY 10/16/22 10/16/22 10/16/22 History tablet,extended release(part/cryst) pregabalin 100 mg capsule 100 mg PO BID 10/16/22 10/16/22 10/16/22 History Allergies Allergy/AdvReac Type Severity Reaction Status Date / Time Penicillins Allergy Unknown Unknown Verified 10/16/22 08:17 Current Medications Generic Name Dose Route Start Last Admin Trade Name Freq PRN Reason Stop Dose Admin Albuterol/Ipratropium 3 ml 10/16/22 11:29 10/18/22 07:36 Ipratropium-Albuterol 3 Ml Neb INHALATION 3 ml Q4H.RESPIRATORY PRN Administration SHORTNESS OF BREATH Atorvastatin Calcium 40 mg 10/17/22 09:00 10/17/22 09:03 Atorvastatin 40 Mg Tablet PO Not Given DAILY FAUZIA Budesonide 0.5 mg 10/16/22 20:00 10/18/22 07:36 Budesonide 0.5 Mg/2 Ml Neb INHALATION 0.5 mg BID.RESPIRATORY FAUZIA Administration Meropenem 1,000 mg/ Sodium 50 mls @ 100 mls/hr 10/16/22 12:00 10/18/22 04:30 Chloride IV Infused Q8H FAUZIA Infusion Protocol Norepinephrine Bitartrate 4 mg 254 mls @ 0 mls/hr 10/16/22 14:45 10/18/22 08:25 / Dextrose IV 0 mcg/min .Q0M FAUZIA 0 mls/hr Titration Protocol Per Protocol Insulin Human Lispro 0 unit 10/16/22 12:00 10/18/22 08:20 Insulin Lispro 100 Unit/1 Ml SUBCUT Not Given WM&BEDTIME FAUZIA Protocol Morphine Sulfate 2 mg 10/17/22 00:24 10/17/22 00:29 Morphine 4 Mg/Ml Sdv 1 Ml IVP 2 mg Q4H PRN Administration SEVERE PAIN Pantoprazole Sodium 40 mg 10/16/22 11:00 10/18/22 00:43 Pantoprazole 40 Mg Sdv IVP 40 mg Q12H FAUZIA Administration PFSH Anesthesia Medical History (Updated 10/17/22 @ 17:34 by Joy Galvan MD) CAD (coronary artery disease) Diabetes mellitus Former smoker History of [place] (myocardial infarction) Lymphedema Macrocytic anemia PAD (peripheral artery disease) Phimosis Unable to ambulate Venous insufficiency Surgical History S/P appendectomy S/P peripheral artery angioplasty with stent placement Family History Brother Diabetes Mother Diabetes Sister Diabetes Father Stroke Social History Smoking and tobacco status: former smoker Quit status (tobacco): has quit using tobacco Year quit tobacco: 4 ya Alcohol intake: former Substance/Drug Use: never Lives independently: No Household members: spouse Marital status: Current occupational status: disabled Data Anesthesia 10/18/22 02:39 10/18/22 06:23 Short CBC 10/16/22 10/16/22 10/17/22 Range/Units 09:00 17:50 03:26 WBC 5.7 17.9 H (4.0-10.0) 10^3/uL Hgb 5.4 L* 8.0 L D 9.3 L (11.7-16.6) g/dL Hct 21.1 L 27.8 L D 33.0 L (42.0-52.0) % MCV 112.8 H 105.1 H D (80-94) fl Plt Count 395 524 H D (130-400) 10^3/cmm Neut % (Auto) 81.8 84.9 % Neut # (Auto) 4.67 15.15 H (1.8-7.7) 10^3/uL 10/18/22 Range/Units 02:39 WBC 7.3 (4.0-10.0) 10^3/uL Hgb 7.8 L (11.7-16.6) g/dL Hct 27.2 L (42.0-52.0) % MCV 101.5 H (80-94) fl Plt Count 330 D (130-400) 10^3/cmm Neut % (Auto) 73.6 % Neut # (Auto) 5.34 (1.8-7.7) 10^3/uL BMP 10/16/22 10/17/22 10/18/22 09:00 03:26 02:39 Sodium 133 L 140 Cancelled Potassium 5.2 H 4.0 Cancelled Chloride 104 106 Cancelled Carbon Dioxide 18 L 21 L Cancelled BUN 22 23 Cancelled Creatinine 0.9 0.9 Cancelled Glucose 447 H 104 Cancelled Calcium 7.8 L 8.0 L Cancelled 10/18/22 06:23 Sodium 140 Potassium 3.8 Chloride 108 H Carbon Dioxide 22 BUN 16 Creatinine 0.7 Glucose 107 Calcium 8.1 L Cardiac Enzymes 10/16/22 10/16/22 10/16/22 Range/Units 09:00 09:00 11:30 Troponin T Gen 5 ng/L (0-15) ng/L Troponin T Baseline 848 H* (0-15) ng/L Troponin T 120 Minute 950.1 H (0-15) ng/L Delta Troponin T 102.1 H* (0-10) ABS# Troponin T Hi Sens 6Hr (0-15) ng/L Troponin T Hi Sens 6Hr Delta (0-12) ng/L NT-Pro-B Natriuret Pep 6302 H (0-125) pg/mL 10/16/22 10/17/22 Range/Units 19:27 03:26 Troponin T Gen 5 ng/L 1297 H* (0-15) ng/L Troponin T Baseline (0-15) ng/L Troponin T 120 Minute (0-15) ng/L Delta Troponin T (0-10) ABS# Troponin T Hi Sens 6Hr 1146 H (0-15) ng/L Troponin T Hi Sens 6Hr Delta 298 H* (0-12) ng/L NT-Pro-B Natriuret Pep (0-125) pg/mL Liver Function 10/16/22 10/17/22 10/18/22 Range/Units 09:00 03:26 02:39 Total Bilirubin 0.3 0.4 Cancelled (0.15-1.2) mg/dL AST 41 H 55 H Cancelled (0-40) U/L ALT 21 29 Cancelled (0-41) U/L Alkaline Phosphatase 146 H 161 H Cancelled (40-130) U/L Albumin 3.0 L 3.2 L Cancelled (3.5-5.2) g/dL 10/18/22 Range/Units 06:23 Total Bilirubin 0.3 (0.15-1.2) mg/dL AST 26 (0-40) U/L ALT 18 (0-41) U/L Alkaline Phosphatase 109 (40-130) U/L Albumin 2.4 L (3.5-5.2) g/dL Urine 10/16/22 Range/Units 11:20 Urine Color Straw (Yellow) Urine Appearance Cloudy A (CLEAR) Urine pH 5 (5-7) Ur Specific [place] 1.005 (1.005-1.030) Urine Protein Trace (Negative) Urine Glucose (UA) 4+ H (Normal) Urine Ketones Negative (Negative) Urine Nitrate Negative (Negative) Urine Bilirubin Neg (Negative) Ur Leukocyte Esterase 1+ H (Negative) Urine RBC >100 H (0-2) /hpf Urine WBC 10-15 H (0-5) /hpf Blood Bank 10/16/22 09:59 Blood Type O Positive Rho(D) Type Positive Antibody Screen Negative Coags 10/16/22 09:00 PT 18.80 H INR 1.52 H Microbiology 10/16/22 11:15 Blood Culture - Preliminary Blood NEGATIVE TO DATE 10/16/22 11:15 Blood Culture - Preliminary Blood NEGATIVE TO DATE 10/16/22 11:20 Urine Culture - Preliminary Urine Catheterized Gram Negative Rods Cardiac Studies: Echocardiogram 10/16/22 Holter Monitor 09/26/21
[2022-10-18] MEDS: FUROsemide 10 mg/mL SDV 2mL 20 MG IVP (09:04)
[2022-10-18] MEDS: atorvastatin 40 mg Tablet PO (09:04)
[2022-10-18 09:35] LABS: PROTEIN, TOTAL 5.8 g/dL (6.1-8.1)
[2022-10-18] MEDS: sodium chloride 0.9% 1,000 ML 30 ML IV (10:40)
[2022-10-18 12:03] LABS: ALBUMIN 2.7 g/dL (3.8-4.8); ALPHA 1 GLOBULIN 0.6 g/dL (0.2-0.3); ALPHA 2 GLOBULIN 0.7 g/dL (0.5-0.9); BETA 1 GLOBULIN 0.5 g/dL (0.4-0.6); BETA 2 GLOBULIN 0.4 g/dL (0.2-0.5); GAMMA GLOBULIN 0.9 g/dL (0.8-1.7)
--- NOTE | 2022-10-18 12:47 | ANE.PACU2 ---
Inpatient post-anesthesia follow up: Airway intact: Yes Vital signs: Temperature 98.0 F Pulse Rate 85 Respiratory Rate 20 Blood Pressure 116/62 Pulse Oximetry 95 Oxygen Delivery Me thod Nasal Cannula Oxygen Flow Rate 1 Fraction of Inspir ed Oxygen Hydration adequate: Yes Nausea and vomiting: No Pain level: 1 Mental status: Baseline
--- NOTE | 2022-10-18 12:48 | PC.NURSE ---
AMA Patient left AMA, informed of risks. Both left & right AC IV removed, catheter tips intact upon removal. Right upper arm PICC line removed, catheter tip intact. Patient alert/oriented x4 upon discharge. Multiple wounds & skin issues noted, please see wound assessment for detail. All patient belongings sent with patient upon d/c. Chronic perla catheter present upon discharge.
--- NOTE | 2022-10-18 13:17 | P.EN_ITS ---
Event Note Event Note: Visited with patient after his EGD, which was normal, need for colonoscopy. Also discussed need for further work-up regarding his heart condition. He reported he was going AGAINST MEDICAL ADVICE. was at bedside, confirmed he was alert and oriented and back to his baseline, and confirmed that she and her family would go along with his wishes of AGAINST MEDICAL ADVICE. She appreciated the care and attention that had been given to him while he was here. I discussed with her and him the risk for and/or permanent disability with his decision to go AGAINST MEDICAL ADVICE including continued bleeding, myocardial infarction, , etc. They still chose to go AGAINST MEDICAL ADVI CE. I did discuss the need for close follow-up with his primary care provider, the need to hold Plavix and aspirin, the need to get repeat blood work, the need to take antibiotic prescribed for UTI. Medicine list was reconciled prior to him going AGAINST MEDICAL ADVICE.
== END 2022-10-18 12:42 | disposition left against medical advice (07) | DRG 377 ==
LOC: ER 10:10 → ICU 10:46
PROVIDERS: Student in an Organized Health Care Education/Training Program; Surgery; Admitting Provider Internal Medicine; Emergency Provider Emergency Medicine; PCP Nurse Practitioner; Visit Provider Internal Medicine
PROC: 0DJ08ZZ Inspection of Upper Intestinal Tract, Via Natural or Artificial Opening Endoscopic (ICD-10-PCS; CPT 43235; principal; 2022-10-18 10:30)
DX: K92.1 Melena (principal); I21.4 Non-ST elevation (NSTEMI) myocardial infarction; N39.0 Urinary tract infection, site not specified; G93.49 Other encephalopathy; Z53.29 Procedure and treatment not carried out because of patient's decision for other reasons; I27.20 Pulmonary hypertension, unspecified; Z96.0 Presence of urogenital implants; I25.10 Atherosclerotic heart disease of native coronary artery without angina pectoris; E11.51 Type 2 diabetes mellitus with diabetic peripheral angiopathy without gangrene; Z95.820 Peripheral vascular angioplasty status with implants and grafts; Z87.891 Personal history of nicotine dependence; I25.2 Old myocardial infarction; E78.5 Hyperlipidemia, unspecified; Z88.0 Allergy status to penicillin; E87.5 Hyperkalemia; I11.0 Hypertensive heart disease with heart failure; I50.9 Heart failure, unspecified; I95.9 Hypotension, unspecified; D64.9 Anemia, unspecified
CPT/HCPCS: 12345; 36415; 36416; 36430; 36569; 36600; 51702; 71045; 71275; 74176; 80053; 80162; 80503; 81001; 82140; 82607; 82728; 82746; 82805; 82962; 83010; 83540; 83550; 83605; 83615; 83735; 83880; 84145; 84155; 84165; 84443; 84484; 85014; 85018; 85025; 85045; 85610; 86850; 86900; 86920; 87040; 87077; 87086; 87186; 93005; 93306; 93970; 94640; 96365; 96372; 96375; 96376; 99285; C9113; J1756; J1815; J1940; J2185; J2270; J2704; J7030; J7050; J7060; J7626; P9016; Q9967

== ENCOUNTER 2023-07-31 21:21 | Emergency (ER) | payer MEDICARE, MEDICAID, SELFPAY ==
[2023-07-31 21:29] VITALS: BP 107/69; PULSE 102; RESP 18; TEMP 37.8; O2SAT 90
--- NOTE | 2023-07-31 21:37 | XRR_ITS ---
PROCEDURE INFORMATION: Exam: XR Chest Exam date and time: 07/31/2023 9:46 PM Age: 72 years old Clinical indication: Other: Pain; Additional info: Weakness TECHNIQUE: Imaging protocol: Radiologic exam of the chest. Views: 1 view. COMPARISON: CR XR chest 1V portable [id number] 10/17/2022 10:30 AM FINDINGS: Lungs: Left lower lobe atelectasis versus minimal infiltrate. Pleural spaces: Unremarkable. No pleural effusion. No pneumothorax. Heart/Mediastinum: Unremarkable. No cardiomegaly. Bones/joints: Unremarkable. XR/XR chest 1V portable [id number] IMPRESSION: Left lower lobe atelectasis versus minimal infiltrate.
--- NOTE | 2023-07-31 21:58 | ECG_ITS ---
[facility] Test Date: 2023-07-31 Pat Name: Allan Hardin Department: Room: Gender: Male Entry Tech: : 1950 Requested By: Jeff Langford Order Number: [id number] Yudelka MD: Michelle Prakash M.D. Measurements Intervals [place] Rate: 98 P: -20 MD: 138 QRS: 53 QRSD: 81 T: -11 QT: 314 QTc: 401 Interpretive Statements SINUS RHYTHM POSSIBLE LEFT ATRIAL ENLARGEMENT [-0.1mV P-WAVE IN V1/V2] NONSPECIFIC ST & T-WAVE ABNORMALITY Compared to ECG 10/17/2022 00:12:33 Possible ischemia no longer present T-wave abnormality still present Electronically Signed On 07-31-2023 23:06:34 CDT by Michelle Prakash M.D. [id number]
--- NOTE | 2023-07-31 22:04 | W.ED.WEAKNES ---
HPI - Weakness General: Chief complaint: Weakness Stated complaint: Weakness Time Seen by Provider: 07/31/23 21:37 History of Present Illness: Patient presents to the ER for weakness and just being out of it today. Patient says he usually gets this way when he is a blood transfusion and has needed multiple transfusions in the past. Patient is currently on Plavix and patient is known bleeding out his urinary catheter. He went to the clinic today to have it changed out and had clots in it. Patient does have a diagnosis of microcytic anemia. As well as history PA, diabetes, CAD, PAD, phimosis, encephalopathy, CHF Review of Systems General: Reports: 10 or more systems reviewed and unremarkable except in HPI and below PFSH ED PFSH: Medical History Macrocytic anemia Unable to ambulate Former smoker Lymphedema History of PA (myocardial infarction) Diabetes mellitus CAD (coronary artery disease) PAD (peripheral artery disease) Venous insufficiency Phimosis Surgical History S/P peripheral artery angioplasty with stent placement S/P appendectomy Family History Brother Diabetes Mother Diabetes Sister Diabetes Father Stroke Social History Smoking and tobacco/nicotine status: former use of tobacco/nicotine Quit status (tobacco/nicotine): has quit using Year quit tobacco: 4 ya Alcohol intake: former Substance/Drug Use: never Lives independently: No Household members: spouse Marital status: Current occupational status: disabled Physical Exam Const: COMMON NORMALS: no acute distress, average body habitus, patient oriented x3, no limitations, healthy appearing, alert and well nourished HENMT: COMMON NORMALS: normocephalic, atraumatic, hearing grossly normal bilaterally, external ears normal, Normal external nose present, moist oral mucous membranes and oropharynx normal HEAD & SCALP: normocephalic and atraumatic NOSE: Normal external nose present EXTERNAL EAR: Yes external ears normal Neck/C-Spine: COMMON NORMALS: full ROM, no lymphadenopathy, supple, no meningeal signs, no JVD and Thyroid normal THYROID: Thyroid normal Chest: COMMONS NORMALS: normal inspection of the chest and normal palpation of entire chest wall Resp: COMMON NORMALS: normal respiratory effort, No retractions, No use of accessory muscles and clear to auscultation bilaterally AUSCULTATION: clear to auscultation bilaterally Cardio: COMMON NORMALS: no JVD, regular rate, regular rhythm, S1 normal heart sound present, S2 normal heart sound present, No gallops present (Cardio), No clicks present (Cardio), No murmurs present (Cardio) and No rub (Cardio) RATE: regular rate RHYTHM: regular rhythm HEART SOUNDS: S1 normal heart sound present and S2 normal heart sound present GI: COMMON NORMALS: Normal to inspection, nondistended, normoactive bowel sounds present, Soft to palpation, non-tender, No hepatosplenomegaly present and no masses PALPATION: Yes Soft to palpation and Yes No hepatosplenomegaly present Neuro: COMMON NORMALS: patient oriented x3 SENSORIUM/ORIENTATION: Yes alert MENINGEAL SIGNS: Yes no meningeal signs Course Vital Signs: Vital signs: Vital Signs Temperature 100.0 F H 07/31/23 21:29 Pulse Rate 103 H 07/31/23 23:32 Respiratory Rate 18 07/31/23 21:29 Blood Pressure 109/55 07/31/23 23:32 Pulse Oximetry 90 07/31/23 23:32 Oxygen Delivery Me thod Room Air 07/31/23 23:32 MDM - Weakness Medical Decision Making Basic lab work back that showed elevated white count 18 and a chest x-ray showed left lower lobe atelectasis versus minimal infiltrate. I went in and talk to the patient about staying due to this possible pneumonia he said he is not going to stay at all. No matter what. He says he just is gone to go home eventually. Patient does not have oxygen at home I will try to get him qualified for oxygen. Will give him a dose of antibiotics here as well as send him home with a prescription. Differential Diagnosis Likely anemia; Unlikely acute myocardial infarction, hypoglycemia, hypothyroidism, rhabdomyolysis, sepsis or dehydration Medical Records I reviewed the patient's medical records. Lab Data I reviewed the patient's lab results. 07/31/23 22:10 07/31/23 22:01 Radiology Impressions Chest X-Ray 07/31/23 21:37 IMPRESSION: Left lower lobe atelectasis versus minimal infiltrate. Laboratory Results WBC 18.16 10^3/uL (3.29-11.43) H 07/31/23 22:10 RBC 4.22 10^6/uL (3.85-5.65) 07/31/23 22:10 Hgb 14.00 g/dL (11.27-16.99) 07/31/23 22:10 Hct 42.6 % (37-53) 07/31/23 22:10 MCV 100.9 fl (82-101) 07/31/23 22:10 MCH 33.2 pg (27-33) H 07/31/23 22:10 MCHC 32.9 g/dL (30-55) 07/31/23 22:10 RDW 15.1 % (12.1-15.1) 07/31/23 22:10 Plt Count 389 10^3/cmm (157-399) 07/31/23 22:10 MPV 10.4 fL (7.4-10.4) 07/31/23 22:10 Neut % (Auto) 96.1 % 07/31/23 22:10 Lymph % (Auto) 1.3 % 07/31/23 22:10 [place] % (Auto) 0.8 % 07/31/23 22:10 Eos % (Auto) 0.2 % 07/31/23 22:10 Baso % (Auto) 0.6 % 07/31/23 22:10 Neut # (Auto) 17.46 10^3/uL (1.8-7.7) H 07/31/23 22:10 Lymph # (Auto) 0.2 10^3/uL (0.8-4.8) L 07/31/23 22:10 [place] # (Auto) 0.2 10^3/uL (0.2-0.9) 07/31/23 22:10 Eos # (Auto) 0.0 10^3/uL (0.0-0.8) 07/31/23 22:10 Baso # (Auto) 0.1 10^3/uL (0.0-0.1) 07/31/23 22:10 Nucleated RBC % (auto) 0.1 % 07/31/23 22:10 Nucleated RBCs # 0.0 /100WBC 07/31/23 22:10 PT 15.50 SECONDS (12.1-14.9) H 07/31/23 22:01 INR 1.19 (0.8-1.2) 07/31/23 22:01 Sodium 134 mmol/L (136-145) L 07/31/23 22:01 Potassium 4.3 mmol/L (3.5-5.1) 07/31/23 22:01 Chloride 93 mmol/L (98-107) L 07/31/23 22:01 Carbon Dioxide 26 mmol/L (22-29) 07/31/23 22:01 Anion Gap 19.3 (5-19) H 07/31/23 22:01 BUN 36 mg/dL (8-23) H 07/31/23 22:01 Creatinine 1.0 mg/dL (0.7-1.2) 07/31/23 22: GFR Calculation Not Reportable 07/31/23 22: Glucose 280 mg/dL (65-115) H 07/31/23 22:01 Calculated Osmolality 296 mOsm/kg (285-295) H 07/31/23 22:01 Lactic Acid 3.8 mmol/L (0.5-2.2) H 07/31/23 22:01 Calcium 8.9 mg/dL (8.5-10.5) 07/31/23 22:01 Magnesium 1.7 mg/dL (1.7-2.3) 07/31/23 22:01 Total Bilirubin 0.4 mg/dL (0.15-1.2) 07/31/23 22:01 AST 52 U/L (0-40) H 07/31/23 22:01 ALT 24 U/L (0-41) 07/31/23 22:01 Alkaline Phosphatase 184 U/L (40-130) H 07/31/23 22:01 Troponin T Baseline 55 ng/L (0-15) H 07/31/23 22:10 Troponin T 120 Minute 54.81 ng/L (0-15) H 07/31/23 23:01 Delta Troponin T -0.19 ABS# (0-10) L 07/31/23 23:01 NT-Pro-B Natriuret Pep 481 pg/mL (0-125) H 07/31/23 22:01 Total Protein 6.8 g/dL (6.6-8.7) 07/31/23 22:01 Albumin 3.6 g/dL (3.5-5.2) 07/31/23 22:01 Globulin 3.2 g/dL (1.3-4.6) 07/31/23 22:01 Procalcitonin 23.32 ng/mL (0-0.5) H 07/31/23 22:01 Urine Color Red (Yellow) A 07/31/23 22:02 Urine Appearance Cloudy (CLEAR) A 07/31/23 22:02 Urine pH 6.5 (5-7) 07/31/23 22:02 Ur Specific [place] 1.015 (1.005-1.030) 07/31/23 22:02 Urine Protein 3+ (Negative) H 07/31/23 22:02 Urine Glucose (UA) 2+ (Normal) H 07/31/23 22:02 Urine Ketones Negative (Negative) 07/31/23 22:02 Urine Blood 3+ (Negative) H 07/31/23 22:02 Urine Nitrate Negative (Negative) 07/31/23 22: Urine Bilirubin Neg (Negative) 07/31/23 22:02 Urine Urobilinogen Neg mg/dL (Negative) 07/31/23 22:02 Ur Leukocyte Esterase 2+ (Negative) H 07/31/23 22:02 Urine RBC Too numerous to cnt /hpf (0-2) H 07/31/23 22:02 Urine WBC 15-25 /hpf (0-5) H 07/31/23 22:02 Ur Squamous Epith Cells None /hpf (0-5) 07/31/23 22:02 Amorphous Sediment Not Reportable 07/31/23 22:02 Urine Bacteria 1+ /hpf (NONE) H 07/31/23 22:02 Urine Mucus 2+ /hpf 07/31/23 22:02 Digoxin 1.0 ng/mL (0.6-1.2) 07/31/23 22:10 Influenza Type A Ag negative (Negative) 07/31/23 22:54 Influenza Type B Ag negative (Negative) 07/31/23 22:54 SARS-CoV-2 Ag (Rapid) negative (Negative) 07/31/23 22:54 Blood Type O Positive 07/31/23 22:10 Rho(D) Type Rh positive 07/31/23 22:10 Antibody Screen Negative 07/31/23 22:10 All radiology interpretation(s) finalized by discharge EKG Data EKG 1: I personally reviewed and interpreted this EKG as follows: EKG interpretation date: 07/31/23 EKG interpretation time: 21:58 Interpretation: Ventricular rate 90 bpm, MT interval 138, QRS duration 81, QTc of 369, sinus rhythm Discharge Plan Discharge Patient Disposition: Left Against Medical Advice Clinical Impression: Congestive heart failure, Acute hypoxemic respiratory failure, Left against medical advice Left lower lobe pneumonia Qualifiers: Pneumonia type: due to unspecified organism Qualified Code(s): J18.9 - Pneumonia, unspecified organism Condition: Stable Prescriptions: New levofloxacin 500 mg tablet 500 mg PO DAILY 7 Days Qty: 7 0RF No Action ascorbic acid (vitamin C) 500 mg capsule 500 mg PO DAILY aspirin 81 mg tablet,chewable 81 mg PO DAILY isosorbide mononitrate 30 mg tablet extended release 24 hr 30 mg PO DAILY Qty: 90 3RF Lantus U-100 Insulin 100 unit/mL solution See Rx Instructions .ROUTE .COMPLEX Rx Instructions: 45 unit subcutaneously qam and 82 units bedtime Farxiga 10 mg tablet 10 mg PO DAILY glyburide 5 mg tablet 5 mg PO BID ferrous sulfate 325 mg (65 mg iron) tablet 325 mg PO BID atorvastatin 40 mg tablet 40 mg PO DAILY Qty: 90 3RF omeprazole 40 mg capsule,delayed release(DR/EC) 40 mg PO DAILY cyanocobalamin (vitamin B-12) 1,000 mcg tablet 1,000 mcg PO DAILY gemfibrozil 600 mg tablet 600 mg PO BID Qty: 180 1RF clopidogrel 75 mg tablet 75 mg PO DAILY Qty: 90 0RF Rx Instructions: MUST have follow-up for further refills fenofibrate 160 mg tablet 160 mg PO DAILY Qty: 90 1RF atenolol 25 mg tablet 25 mg PO DAILY Qty: 90 1RF Digox 125 mcg (0.125 mg) tablet 125 mcg PO DAILY Qty: 90 2RF pregabalin 100 mg capsule 100 mg PO BID Fish Oil 360-1,200 mg Capsule 1 cap PO BID furosemide 40 mg tablet 60 mg PO DAILY PRN (Reason: Edema) potassium chloride 20 mEq tablet,ER particles/crystals 30 meq PO DAILY Other Ambulatory Orders: DME: Oxygen (Order) Location: None Selected Ordered By: Tobias Jin Referrals: Solano,Dilip K, CASTING MACHINE SET UP OPERATOR [Primary Care Provider] - Coding Level of Care Code ED Pmo Consultant for Soheila Harry
[2023-07-31 22:21] LABS: Basophils # 0.1 10^3/uL (0.0-0.1); Basophils % 0.6 %; Eosinophils % 0.2 %; Hematocrit 42.6 % (37-53); Lymphocytes # 0.2 10^3/uL (0.8-4.8); Lymphocytes % 1.3 %; Mean Corpuscular HGB Conc 32.9 g/dL (30-55); Mean Corpuscular Hemoglobin 33.2 pg (27-33); Mean Corpuscular Volume 100.9 fl (82-101); Mean Platelet Volume 10.4 fL (7.4-10.4); Monocytes # 0.2 10^3/uL (0.2-0.9); Monocytes % 0.8 %; Neutrophils # 17.46 10^3/uL (1.8-7.7); Neutrophils % 96.1 %; Nucleated Red Blood Cells % 0.1 %; Platelet Count 389 10^3/cmm (157-399); Red Blood Count 4.22 10^6/uL (3.85-5.65); Red Cell Distribution Width 15.1 % (12.1-15.1); White Blood Count 18.16 10^3/uL (3.29-11.43)
[2023-07-31 22:26] LABS: Add Urine Microscopic? YES; Bilirubin Urine Neg (Negative); Blood Urine 3+ (Negative); Glucose Urine UA 2+ (Normal); Ketones Urine Negative (Negative); Leukocyte Esterase Urine 2+ (Negative); Nitrate Urine Negative (Negative); Protein Urine 3+ (Negative); Specific Gravity, Urine 1.015 (1.005-1.030); Urine Appearance Cloudy (CLEAR); Urine Color Red (Yellow); Urobilinogen Urine Neg (Negative); pH Urine 6.5 (5-7)
[2023-07-31] MEDS: sodium chloride 0.9% 1,000 ML 999 ML IV (22:26)
[2023-07-31 22:28] LABS: INR 1.19 (0.8-1.2)
[2023-07-31 22:28] LABS: Bacteria Urine 1+ /hpf; Mucus Urine 2+ /hpf; RBC Urine TOO NUMEROUS TO CNT /hpf (0-2); WBC Urine 15-25 /hpf (0-5)
[2023-07-31 22:29] LABS: Add Urine Culture? Yes
[2023-07-31 22:39] LABS: Alanine Aminotransferase 24 U/L (0-41); Albumin Level 3.6 g/dL (3.5-5.2); Alkaline Phosphatase 184 U/L (40-130); Anion Gap 19.3 (5-19); Aspartate Amino Transferase 52 U/L (0-40); Blood Urea Nitrogen 36 mg/dL (8-23); Calcium 8.9 mg/dL (8.5-10.5); Carbon Dioxide 26 mmol/L (22-29); Chloride 93 mmol/L (98-107); Creatinine Clr Calc Pharmacy 62.6357; Globulin 3.2 g/dL (1.3-4.6); Glucose 280 mg/dL (65-115); Magnesium 1.7 mg/dL (1.7-2.3); Osmolality Calculated 296 mOsm/kg (285-295); Potassium 4.3 mmol/L (3.5-5.1); Sodium 134 mmol/L (136-145); Total Bilirubin 0.4 mg/dL (0.15-1.2); Total Protein 6.8 g/dL (6.6-8.7)
[2023-07-31 22:41] LABS: Troponin(5th) Baseline 55 ng/L (0-15)
[2023-07-31 22:44] LABS: NT Pro B Type Natriuretic Pept 481 pg/mL (0-125)
[2023-07-31 22:45] LABS: Lactic Sepsis W/Reflex 3.8 mmol/L (0.5-2.2)
[2023-07-31] MEDS: levofloxacin-dextrose 5 % 500 MG/100 ML PREMIX 100 MG IV (22:54)
[2023-07-31 22:57] VITALS: PULSE 102; O2SAT 89
[2023-07-31 23:00] VITALS: BP 111/44
[2023-07-31 23:11] LABS: Procalcitonin 23.32 ng/mL (0-0.5)
[2023-07-31 23:13] VITALS: O2SAT 91
[2023-07-31 23:15] LABS: Influenza A by IFA negative (Negative); Influenza B by IFA negative (Negative); SARS Covid-2 Antigen negative (Negative)
[2023-07-31 23:17] LABS: Troponin 5 2HR 54.81 ng/L (0-15)
[2023-07-31 23:18] LABS: Troponin 5 2HR Delta -0.19 ABS# (0-10)
[2023-07-31 23:32] VITALS: BP 109/55; PULSE 103; O2SAT 90
--- NOTE | 2023-07-31 23:38 | ECG_ITS ---
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 Measurements Intervals [place] Rate: 104 P: 63 DE: 148 QRS: -25 QRSD: 85 T: 75 QT: 312 QTc: 411 Interpretive Statements SINUS TACHYCARDIA POSSIBLE LEFT ATRIAL ENLARGEMENT [-0.1mV P-WAVE IN V1/V2] BORDERLINE LEFT AXIS DEVIATION [QRS AXIS < -20] NONSPECIFIC ST & T-WAVE ABNORMALITY Compared to ECG 07/31/2023 21:58:22 Sinus rhythm no longer present T-wave abnormality still present Electronically Signed On 08-01-2023 10:57:01 CDT by Se Pringle M.D. [id number]
[2023-08-01 00:18] LABS: Reflex Lactate Order REFLEX LACTIC ORDERD
== END 2023-08-01 00:53 | disposition left against medical advice (07) ==
PROVIDERS: Emergency Provider Emergency Medicine; PCP Nurse Practitioner
DX: I50.9 Heart failure, unspecified (principal); J18.9 Pneumonia, unspecified organism; J96.01 Acute respiratory failure with hypoxia; Z53.29 Procedure and treatment not carried out because of patient's decision for other reasons; Z79.82 Long term (current) use of aspirin; Z79.4 Long term (current) use of insulin; Z79.02 Long term (current) use of antithrombotics/antiplatelets; Z79.84 Long term (current) use of oral hypoglycemic drugs; Z11.52 Encounter for screening for COVID-19; Z87.891 Personal history of nicotine dependence; I25.2 Old myocardial infarction; E11.9 Type 2 diabetes mellitus without complications; I25.10 Atherosclerotic heart disease of native coronary artery without angina pectoris
CPT/HCPCS: 36415; 71045; 80053; 80162; 81001; 83605; 83735; 83880; 84145; 84484; 85025; 85610; 86850; 86900; 87040; 87077; 87086; 87186; 87426; 87804; 93005; 96365; 99285; J1956; J7030

== ENCOUNTER 2023-11-18 12:42 | Emergency (ER) | payer MEDICARE, MEDICAID, SELFPAY ==
[2023-11-18 12:53] VITALS: BP 124/67; PULSE 90; RESP 18; TEMP 36.9; O2SAT 95
--- NOTE | 2023-11-18 13:07 | USR_ITS ---
PROCEDURE INFORMATION: Exam: US Duplex Left Lower Extremity Veins, Limited Exam date and time: 11/18/2023 2:05 PM Age: 73 years old Clinical indication: Other: Redness; Additional info: Redness/acute on chronic swelling TECHNIQUE: Imaging protocol: Real-time duplex ultrasound of the left extremity with 2-D sigala scale, color Doppler flow and spectral waveform analysis including responses to compression and other maneuvers (when performed) with image documentation. Limited exam focused on the left lower extremity veins. COMPARISON: CT kidney stone [id number] 10/16/2022 3:08 PM FINDINGS: Left deep veins: Unremarkable. The common femoral, femoral, proximal profunda femoral and popliteal veins are patent without thrombus. Normal Doppler waveforms. Normal compressibility and/or augmentation response. Superficial veins: Greater saphenous vein at the saphenofemoral junction is patent without thrombus. Soft tissues: Unremarkable. US/[place] [id number] IMPRESSION: No evidence of deep vein thrombosis.
--- NOTE | 2023-11-18 13:10 | W.ED.EXTPRO ---
HPI - Extremity Problem General: Chief complaint: Extremity Problem,Nontraumatic Stated complaint: sent over for left leg possible blood clot Time Seen by Provider: 11/18/23 12:57 History of Present Illness: Patient is a 73-year-old male who presents to the emergency department due redness and worsening swelling to his left lower extremity, around the knee area beginning today. Patient was referred over emergent care to rule out possible blood clot versus cellulitis infection. He has a history of lymphedema and has chronic bilateral venous stasis changes. He is not reporting any specific increase in pain or numbness/tingling, primary concern is the pain and redness of which spouse is mainly concerned about. He has not been having any fevers, no chest pain or shortness of breath, no nausea or vomiting, or other systemic signs of illness. He also has history of WI, diabetes, and coronary artery disease and currently does take a water pill. He is not ambulatory and is wheelchair-bound at all times. Currently a referral to wound care is pending at this time. No other symptoms to report. MD Complaint: extremity pain, extremity swelling and other (Extremity redness) Onset (ago): hour(s) Location: left Radiation: proximal Associated symptoms: Deny chest pain, fever(s) or rash Context: other (Immobile, chronically sitting) Review of Systems General: Reports: 10 or more systems reviewed and unremarkable except in HPI and below Const: Denies: fever(s), chills or fatigue Eyes: Denies: change in vision ENMT: Denies: throat pain, ear or mastoid pain or nasal discharge Card: Denies: chest pain, palpitations, swelling of feet/ankles or lightheadedness Resp: Denies: dyspnea, productive cough or wheezing GI: Denies: abdominal pain, nausea, vomiting, diarrhea or constipation : Denies: flank pain, difficulty urinating, dysuria or urinary frequency Musc: Reports: extremity pain, extremity swelling and other (Extremity redness); Denies: neck pain, back pain or joint pain Skin/Breast: Denies: rash Neuro: Denies: headache(s), numbness in extremities or weakness in extremities PFS ED PFSH: Medical History Macrocytic anemia Unable to ambulate Former smoker Lymphedema History of WI (myocardial infarction) Diabetes mellitus CAD (coronary artery disease) PAD (peripheral artery disease) Venous insufficiency Phimosis Surgical History S/P peripheral artery angioplasty with stent placement S/P appendectomy Family History Brother Diabetes Mother Diabetes Sister Diabetes Father Stroke Social History Smoking and tobacco/nicotine status: unknown if used tobacco/nicotine Quit status (tobacco/nicotine): has quit using Year quit tobacco: 4 ya Alcohol intake: former Substance/Drug Use: never Lives independently: No Household members: spouse Marital status: Current occupational status: disabled Physical Exam Const: COMMON NORMALS: no acute distress, patient oriented x3, no limitations and alert GENERAL APPEARANCE: disheveled and appears older than stated age HENMT: COMMON NORMALS: normocephalic and atraumatic HEAD & SCALP: normocephalic and atraumatic Neck/C-Spine: COMMON NORMALS: full ROM, supple and no meningeal signs Resp: COMMON NORMALS: normal respiratory effort, No use of accessory muscles and clear to auscultation bilaterally AUSCULTATION: clear to auscultation bilaterally Cardio: COMMON NORMALS: regular rate and regular rhythm RATE: regular rate RHYTHM: regular rhythm Extremity: NARRATIVE EXTREMITY EXAM: Severe chronic bilateral venous stasis changes. 3+ pitting edema bilaterally up above the knees. To the left lower extremity, there is an area of expanding redness noted to the medial and lateral aspect, that does feel slightly warm to the touch. This area does not seem to be painful. Distal pulses essentially unable to be palpated due to amount of swelling. He is able to move both lower extremities and does not endorse any distal sensory changes. There is bruising noted to the posterior aspect of the left calf, from chronic wounds. No significant calf tenderness reported on exam, and edema does not appear worse on the left than the right. Neuro: COMMON NORMALS: patient oriented x3, moves all extremities, no focal motor deficits and no sensory deficits noted SENSORIUM/ORIENTATION: Yes alert MENINGEAL SIGNS: Yes no meningeal signs Skin: NARRATIVE SKIN EXAM: See extremity exam Course Vital Signs: Vital signs: Vital Signs Temperature 98.4 F 11/18/23 12:53 Pulse Rate 87 11/18/23 14:30 Respiratory Rate 16 11/18/23 14:30 Blood Pressure 158/77 11/18/23 14:30 Pulse Oximetry 94 11/18/23 14:30 Oxygen Delivery Me thod Room Air 11/18/23 14:30 MDM - Extremity (Nontraumatic) Medical Decision Making Patient sent over from urgent care to rule out blood clot. Vitals on arrival unremarkable condition has remained stable. On examination he had severe bilateral venous stasis changes, though there was some redness noted to the patient's left knee area. This did appear like cellulitis, however ultrasound was obtained that did not reveal any signs of blood clot. Will treat for cellulitis at this time, no signs of systemic infection and he has impending follow-up with wound care. Will treat with Keflex and strict return precautions given at this time. Care of patient discussed with Dr. Celestin, supervising ED physician, who agrees with plan. All radiology interpretation(s) finalized by discharge Discharge Plan Discharge Patient Disposition: Home Clinical Impression: Cellulitis Condition: Stable Prescriptions: New cephalexin 500 mg capsule 500 mg PO BID 7 Days Qty: 14 0RF No Action ascorbic acid (vitamin C) 500 mg capsule 500 mg PO DAILY aspirin 81 mg tablet,chewable 81 mg PO DAILY isosorbide mononitrate 30 mg tablet extended release 24 hr 30 mg PO DAILY Qty: 90 3RF Lantus U-100 Insulin 100 unit/mL solution See Rx Instructions .ROUTE .COMPLEX Rx Instructions: 45 unit subcutaneously qam and 82 units bedtime Farxiga 10 mg tablet 10 mg PO DAILY glyburide 5 mg tablet 5 mg PO BID ferrous sulfate 325 mg (65 mg iron) tablet 325 mg PO BID atorvastatin 40 mg tablet 40 mg PO DAILY Qty: 90 3RF omeprazole 40 mg capsule,delayed release(DR/EC) 40 mg PO DAILY cyanocobalamin (vitamin B-12) 1,000 mcg tablet 1,000 mcg PO DAILY gemfibrozil 600 mg tablet 600 mg PO BID Qty: 180 1RF clopidogrel 75 mg tablet 75 mg PO DAILY Qty: 90 0RF Rx Instructions: MUST have follow-up for further refills fenofibrate 160 mg tablet 160 mg PO DAILY Qty: 90 1RF atenolol 25 mg tablet 25 mg PO DAILY Qty: 90 1RF Digox 125 mcg (0.125 mg) tablet 125 mcg PO DAILY Qty: 90 2RF pregabalin 100 mg capsule 100 mg PO BID Fish Oil 360-1,200 mg Capsule 1 cap PO BID furosemide 40 mg tablet 60 mg PO DAILY PRN (Reason: Edema) potassium chloride 20 mEq tablet,ER particles/crystals 30 meq PO DAILY Discharge Orders: Discharge ED (Routine); Ordered 11/18/23 Ordered By: Juan Alvarez Referrals: Dilip Solano FNP [Primary Care Provider] - Discharge Diet: Usual diet Discharge Activity: Increase activity as tolerated Patient Instructions: Cellulitis (ED) Activity Restrictions/Additional Instructions: Take antibiotics as prescribed. Follow-up with wound care as planned. Also follow-up with primary care. Return with any new or concerning symptoms. Coding Level of Care Code ED School Psychology Specialist for Soheila Harry
--- NOTE | 2023-11-18 13:25 | PC.NURSE ---
Pt transferred from wheelchair to bed with small slide board and assist of 5 staff, tolerated well. Pt placed in gown with pants removed for pending ultrasound
[2023-11-18 13:30] VITALS: BP 126/72; PULSE 88; RESP 16; O2SAT 95
[2023-11-18 14:30] VITALS: BP 158/77; PULSE 87; RESP 16; O2SAT 94
[2023-11-18 15:00] VITALS: BP 134/77; PULSE 81; O2SAT 95
== END 2023-11-18 15:21 | disposition home or self-care (01) ==
PROVIDERS: Emergency Provider Physician Assistant; PCP Nurse Practitioner
DX: L03.116 Cellulitis of left lower limb (principal); Z87.891 Personal history of nicotine dependence; I25.2 Old myocardial infarction; E11.9 Type 2 diabetes mellitus without complications; I25.10 Atherosclerotic heart disease of native coronary artery without angina pectoris
CPT/HCPCS: 93971; 99284

== ENCOUNTER → 2023-11-28 13:07 | Outpatient (BNVA) | payer MEDICARE, MEDICAID, SELFPAY | PROVIDERS: PCP Nurse Practitioner; Visit Provider Internal Medicine | DX: I25.10 Atherosclerotic heart disease of native coronary artery without angina pectoris (principal); I73.9 Peripheral vascular disease, unspecified | CPT/HCPCS: 99214 ==

== ENCOUNTER → 2023-12-21 09:15 | Outpatient (BNVA) | payer MEDICARE, MEDICAID, SELFPAY | PROVIDERS: PCP Nurse Practitioner; Visit Provider Thoracic Surgery (Cardiothoracic Vascular Surgery) | DX: I96 Gangrene, not elsewhere classified (principal); I89.0 Lymphedema, not elsewhere classified; L97.821 Non-pressure chronic ulcer of other part of left lower leg limited to breakdown of skin; L97.521 Non-pressure chronic ulcer of other part of left foot limited to breakdown of skin | CPT/HCPCS: 97597; 99213 ==

== ENCOUNTER → 2023-12-24 15:39 | Outpatient (BNVA) | payer MEDICARE, MEDICAID, SELFPAY | PROVIDERS: PCP Nurse Practitioner; Visit Provider Thoracic Surgery (Cardiothoracic Vascular Surgery) | DX: Z51.89 Encounter for other specified aftercare (principal) | CPT/HCPCS: 29581 ==

== ENCOUNTER → 2023-12-27 14:20 | Outpatient (BNVA) | payer MEDICARE, MEDICAID, SELFPAY | PROVIDERS: PCP Nurse Practitioner; Visit Provider Thoracic Surgery (Cardiothoracic Vascular Surgery) | DX: I89.0 Lymphedema, not elsewhere classified (principal); L97.821 Non-pressure chronic ulcer of other part of left lower leg limited to breakdown of skin; L97.521 Non-pressure chronic ulcer of other part of left foot limited to breakdown of skin | CPT/HCPCS: 97597; 97598 ==

== ENCOUNTER → 2024-01-03 13:49 | Outpatient (BNVA) | payer MEDICARE, MEDICAID, SELFPAY | PROVIDERS: PCP Nurse Practitioner; Visit Provider Thoracic Surgery (Cardiothoracic Vascular Surgery) | DX: I96 Gangrene, not elsewhere classified (principal); I89.0 Lymphedema, not elsewhere classified; L97.821 Non-pressure chronic ulcer of other part of left lower leg limited to breakdown of skin; L97.521 Non-pressure chronic ulcer of other part of left foot limited to breakdown of skin | CPT/HCPCS: 97597; 97598 ==

== ENCOUNTER → 2024-01-10 14:01 | Outpatient (BNVA) | payer MEDICARE, MEDICAID, SELFPAY | PROVIDERS: PCP Nurse Practitioner; Visit Provider Thoracic Surgery (Cardiothoracic Vascular Surgery) | DX: I89.0 Lymphedema, not elsewhere classified (principal); L97.821 Non-pressure chronic ulcer of other part of left lower leg limited to breakdown of skin; L97.521 Non-pressure chronic ulcer of other part of left foot limited to breakdown of skin; Z09 Encounter for follow-up examination after completed treatment for conditions other than malignant neoplasm | CPT/HCPCS: 97597 ==

== ENCOUNTER → 2024-01-17 14:16 | Outpatient (BNVA) | payer MEDICARE, MEDICAID, SELFPAY | PROVIDERS: PCP Nurse Practitioner; Visit Provider Thoracic Surgery (Cardiothoracic Vascular Surgery) | DX: E11.52 Type 2 diabetes mellitus with diabetic peripheral angiopathy with gangrene (principal); E11.622 Type 2 diabetes mellitus with other skin ulcer; L97.812 Non-pressure chronic ulcer of other part of right lower leg with fat layer exposed; I89.0 Lymphedema, not elsewhere classified | CPT/HCPCS: 97597 ==

== ENCOUNTER → 2024-01-24 13:54 | Outpatient (BNVA) | payer MEDICARE, MEDICAID, SELFPAY | PROVIDERS: PCP Nurse Practitioner; Visit Provider Thoracic Surgery (Cardiothoracic Vascular Surgery) | DX: I89.0 Lymphedema, not elsewhere classified (principal); L97.521 Non-pressure chronic ulcer of other part of left foot limited to breakdown of skin; E11.52 Type 2 diabetes mellitus with diabetic peripheral angiopathy with gangrene; E11.622 Type 2 diabetes mellitus with other skin ulcer; L97.811 Non-pressure chronic ulcer of other part of right lower leg limited to breakdown of skin | CPT/HCPCS: 97597 ==

== ENCOUNTER → 2024-02-07 13:52 | Outpatient (BNVA) | payer MEDICARE, MEDICAID, SELFPAY | PROVIDERS: PCP Nurse Practitioner; Visit Provider Thoracic Surgery (Cardiothoracic Vascular Surgery) | DX: I96 Gangrene, not elsewhere classified (principal); I89.0 Lymphedema, not elsewhere classified; L97.521 Non-pressure chronic ulcer of other part of left foot limited to breakdown of skin; L97.811 Non-pressure chronic ulcer of other part of right lower leg limited to breakdown of skin | CPT/HCPCS: 97597 ==

== ENCOUNTER → 2024-02-21 13:51 | Outpatient (BNVA) | payer MEDICARE, MEDICAID, SELFPAY | PROVIDERS: PCP Nurse Practitioner; Visit Provider Thoracic Surgery (Cardiothoracic Vascular Surgery) | DX: I89.0 Lymphedema, not elsewhere classified (principal); L97.521 Non-pressure chronic ulcer of other part of left foot limited to breakdown of skin; E11.52 Type 2 diabetes mellitus with diabetic peripheral angiopathy with gangrene; E11.622 Type 2 diabetes mellitus with other skin ulcer; L97.811 Non-pressure chronic ulcer of other part of right lower leg limited to breakdown of skin; E11.621 Type 2 diabetes mellitus with foot ulcer; L97.511 Non-pressure chronic ulcer of other part of right foot limited to breakdown of skin | CPT/HCPCS: 97597 ==

== ENCOUNTER → 2024-03-06 14:00 | Outpatient (BNVA) | payer MEDICARE, MEDICAID, SELFPAY | PROVIDERS: PCP Nurse Practitioner; Visit Provider Thoracic Surgery (Cardiothoracic Vascular Surgery) | DX: I89.0 Lymphedema, not elsewhere classified (principal); L97.521 Non-pressure chronic ulcer of other part of left foot limited to breakdown of skin; E11.52 Type 2 diabetes mellitus with diabetic peripheral angiopathy with gangrene; E11.622 Type 2 diabetes mellitus with other skin ulcer; L97.811 Non-pressure chronic ulcer of other part of right lower leg limited to breakdown of skin; E11.621 Type 2 diabetes mellitus with foot ulcer; L97.511 Non-pressure chronic ulcer of other part of right foot limited to breakdown of skin | CPT/HCPCS: 97597 ==

== ENCOUNTER → 2024-03-20 14:00 | Outpatient (BNVA) | payer MEDICARE, MEDICAID, SELFPAY | PROVIDERS: PCP Nurse Practitioner; Visit Provider Thoracic Surgery (Cardiothoracic Vascular Surgery) | DX: E11.52 Type 2 diabetes mellitus with diabetic peripheral angiopathy with gangrene (principal); E11.621 Type 2 diabetes mellitus with foot ulcer; L97.511 Non-pressure chronic ulcer of other part of right foot limited to breakdown of skin; L97.521 Non-pressure chronic ulcer of other part of left foot limited to breakdown of skin; E11.622 Type 2 diabetes mellitus with other skin ulcer; L97.811 Non-pressure chronic ulcer of other part of right lower leg limited to breakdown of skin | CPT/HCPCS: 97597; A6197 ==

== ENCOUNTER → 2024-04-03 14:00 | Outpatient (BNVA) | payer MEDICARE, MEDICAID, SELFPAY | PROVIDERS: PCP Nurse Practitioner; Visit Provider Thoracic Surgery (Cardiothoracic Vascular Surgery) | DX: I89.0 Lymphedema, not elsewhere classified (principal); L97.521 Non-pressure chronic ulcer of other part of left foot limited to breakdown of skin; E11.52 Type 2 diabetes mellitus with diabetic peripheral angiopathy with gangrene; E11.622 Type 2 diabetes mellitus with other skin ulcer; L97.811 Non-pressure chronic ulcer of other part of right lower leg limited to breakdown of skin; E11.621 Type 2 diabetes mellitus with foot ulcer; L97.511 Non-pressure chronic ulcer of other part of right foot limited to breakdown of skin | CPT/HCPCS: 97597; A6197 ==

== ENCOUNTER → 2024-04-24 14:00 | Outpatient (BNVA) | payer MEDICARE, MEDICAID, SELFPAY | PROVIDERS: PCP Nurse Practitioner; Visit Provider Thoracic Surgery (Cardiothoracic Vascular Surgery) | DX: E11.52 Type 2 diabetes mellitus with diabetic peripheral angiopathy with gangrene (principal); E11.622 Type 2 diabetes mellitus with other skin ulcer; L97.811 Non-pressure chronic ulcer of other part of right lower leg limited to breakdown of skin; E11.621 Type 2 diabetes mellitus with foot ulcer; L97.511 Non-pressure chronic ulcer of other part of right foot limited to breakdown of skin; L97.521 Non-pressure chronic ulcer of other part of left foot limited to breakdown of skin; I89.0 Lymphedema, not elsewhere classified; Z09 Encounter for follow-up examination after completed treatment for conditions other than malignant neoplasm | CPT/HCPCS: 97597; A6197 ==

== ENCOUNTER 2024-05-07 18:06 | Inpatient (IN) | payer MEDICARE, MEDICAID, SELFPAY ==
[2024-05-07] VITALS (11 sets, daily range): BP systolic 69–114; BP diastolic 37–54; PULSE 83–116; RESP 18–20; TEMP 37; O2SAT 85–96; BMI 26.6
--- NOTE | 2024-05-07 18:16 | XRR_ITS ---
PROCEDURE INFORMATION: Exam: XR Chest Exam date and time: 05/07/2024 8:26 PM Age: 73 years old Clinical indication: Shortness of breath; Additional info: SOB TECHNIQUE: Imaging protocol: Radiologic exam of the chest. Views: 1 view. COMPARISON: CR XR chest 1V portable [id number] 07/31/2023 9:46 PM FINDINGS: Lungs: No focal consolidation. Bibasilar hazy opacities compatible with atelectasis or developing infection in the proper clinical setting. Pleural spaces: No evidence of pneumothorax. No evidence of pleural effusion. Heart/Mediastinum: Cardiomediastinal silhouette is within normal limits. Bones/joints: No evidence of acute osseous abnormality. XR/XR chest 1V portable [id number] IMPRESSION: 1. Bibasilar hazy opacities compatible with atelectasis or developing infection in the proper clinical setting.
--- NOTE | 2024-05-07 18:52 | ED_ITS ---
HPI - SOB/Dyspnea 2 General: Chief Complaint: Shortness of Breath/Dyspnea Stated Complaint: fever/ chest gurgle Time Seen by Provider: 05/07/24 18:44 History of Present Illness: HPI Narrative: 73-year-old man with a history of anemia , tobacco dependence in remission, coronary artery disease peripheral vascular disease venous insufficiency and chronic venous stasis who presents emergency room with shortness of breath. He has had productive cough, fever and shortness of breath. This been going on for couple of days now. He saw his PCP and started on some doxycycline. He is had 1 dose of that. Also ordered an inhaler which she has not picked up yet. No altered mental status. No focal motor deficits. He has dressings on his legs bilaterally for his venous stasis. Related Data Home Medications Medication Instructions Recorded Confirmed dapagliflozin propanediol 10 mg 10 mg PO DAILY 09/17/19 11/28/23 tablet (Farxiga) ferrous sulfate 325 mg (65 mg 325 mg PO BID 09/17/19 11/28/23 iron) tablet glyburide 5 mg tablet 5 mg PO BID 09/17/19 11/28/23 ascorbic acid (vitamin C) 500 mg 500 mg PO DAILY 06/09/20 11/28/23 capsule aspirin 81 mg chewable tablet 81 mg PO DAILY 09/26/21 11/28/23 cyanocobalamin (vitamin B-12) 1,000 mcg PO DAILY 09/13/22 11/28/23 1,000 mcg tablet omeprazole 40 mg capsule,delayed 40 mg PO DAILY 09/13/22 11/28/23 release furosemide 40 mg tablet 60 mg PO DAILY PRN Edema 10/16/22 11/28/23 omega-3 fatty acids-fish oil 360 1 cap PO BID 10/16/22 11/28/23 mg-1,200 mg capsule (Fish Oil) potassium chloride 20 mEq 30 meq PO DAILY 10/16/22 11/28/23 tablet,extended release(part/cryst) pregabalin 100 mg capsule 100 mg PO BID 10/16/22 11/28/23 insulin glargine 100 unit/mL (3 See Rx Instructions SUBCUT BID 11/28/23 11/28/23 mL) subcutaneous pen (Basaglar KwikPen U-100 Insulin) Previous Rx's Medication Instructions Recorded atorvastatin 40 mg tablet 40 mg PO DAILY #90 tabs 06/07/21 isosorbide mononitrate 30 mg 30 mg PO DAILY #90 tabs 09/26/21 tablet,extended release 24 hr clopidogrel 75 mg tablet 75 mg PO DAILY #90 tabs 06/19/22 atenolol 25 mg tablet 25 mg PO DAILY #90 tabs 07/05/22 fenofibrate 160 mg tablet 160 mg PO DAILY #90 tabs 07/05/22 digoxin 125 mcg (0.125 mg) tablet 125 mcg PO DAILY #90 tabs 10/12/22 (Digox) nitroglycerin 0.4 mg sublingual 0.4 mg sublingual Q5M PRN chest 11/28/23 tablet pain #20 tabs Allergies Allergy/AdvReac Type Severity Reaction Status Date / Time Penicillins Allergy Unknown Unknown Verified 05/07/24 18:36 Review of Systems 2 Narrative: Constitutional symptoms: Negative except as documented in HPI. Skin symptoms: Negative except as documented in HPI. Eye symptoms: Negative except as documented in HPI. ENMT symptoms: Negative except as documented in HPI. Respiratory symptoms: Negative except as documented in HPI. Cardiovascular symptoms: Negative except as documented in HPI. Gastrointestinal symptoms: Negative except as documented in HPI. Genitourinary symptoms: Negative except as documented in HPI. Musculoskeletal symptoms: Negative except as documented in HPI. Neurologic symptoms: Negative except as documented in HPI. Psychiatric symptoms: Negative except as documented in HPI. Endocrine symptoms: Negative except as documented in HPI. PFSH ED 2 PFSH: Medical History Macrocytic anemia Unable to ambulate Former smoker Lymphedema History of [place] (myocardial infarction) Diabetes mellitus CAD (coronary artery disease) PAD (peripheral artery disease) Venous insufficiency Phimosis Surgical History S/P peripheral artery angioplasty with stent placement S/P appendectomy Family History Brother Diabetes Mother Diabetes Sister Diabetes Father Stroke Social History Smoking and tobacco/nicotine status: unknown if used tobacco/nicotine Quit status (tobacco/nicotine): has quit using Year quit tobacco: 4 ya Alcohol intake: former Substance/Drug Use: never Lives independently: No Household members: spouse Marital status: Current occupational status: disabled Physical Exam 2 Narrative: EXAM NARRATIVE: General: Alert, no acute distress. Skin: Warm, dry. Head: Normocephalic, atraumatic. Neck: Supple, trachea midline. Eye: Extraocular movements are intact. Ears, nose, mouth and throat: Oral mucosa moist. Cardiovascular: Regular rate and rhythm, Normal peripheral perfusion. Respiratory: coarse, scattered wheeze, mild increased wob. tachypnea, breath sounds are equal, Symmetrical chest wall expansion. Gastrointestinal: Soft, Nontender, Non distended, Normal bowel sounds. Musculoskeletal: Normal ROM, no deformity. Neurological: Alert and oriented to person, place, time, and situation, No focal neurological deficit observed. Psychiatric: Cooperative, appropriate mood & affect. Course 2 Vital Signs: Vital signs: Vital Signs Temperature 98.6 F 05/07/24 18:33 Pulse Rate 99 05/07/24 21:15 Respiratory Rate 20 H 05/07/24 19:43 Blood Pressure 114/49 05/07/24 21:00 Pulse Oximetry 90 05/07/24 21:15 Oxygen Delivery Me thod Nasal Cannula 05/07/24 21:15 Oxygen Flow Rate 5 05/07/24 19:43 MDM - SOB/Dyspnea Medical Decision Making Differential diagnosis for patient with shortness of breath includes but is not limited to and based on the above HPI, review of systems and physical exam: Pneumonia. Bronchitis. Asthma or COPD with acute exacerbation. Acute coronary syndrome / CO. Pulmonary embolism. Anxiety. Congestive heart failure. Viral infections including influenza and Covid-19. Atrial fibrillation. Anxiety. Pleural effusion. Pneumothorax. Orders placed to evaluate differential diagnosis based on the above differential, HPI and physical exam Chest x-ray: No acute process. No infiltrate. No pneumothorax. This was reviewed and interpreted by myself the emergency room physician. I also reviewed the radiology report. Lab Review: Laboratory results were reviewed and interpreted by myself the emergency room physician. Mild leukocytosis with a white count of 13,000. Creatinine are 28 and 1. Patient is COVID-positive. I reviewed the patient's medical record. Reexamination: Patient is maintaining his sats in the low 90s on 5 L nasal cannula. No altered mental status. No focal motor deficits. He is a bit somnolent. Prior to admission patient has increased his oxygen requirements. Consultation: I spoke with the patient's urologist Dr. James who okays Wu catheter change. Consultation: I spoke with Dr. Coon who is on-call for the hospitalist service who agrees to admission. He request a urinalysis which have ordered. Admitting to the ICU with increased oxygen requirement Assessment and plan: COVID-19 Hypoxemia Chronic indwelling Wu catheter ?IV doxycycline and Rocephin. IV Solu-Medrol. Updrafts. -Initially requiring 5 L, now up to almost 10 L. Not on oxygen at home. ?Spoke with Dr. James who approves Wu catheter change here in the emergency room -I discussed the patient with the hospitalist on-call who is admitting the patient. - Discussed findings and plan with patient. Answered any questions. - All laboratory values were reviewed and interpreted personally by myself, the ER physician - All imaging was reviewed and interpreted personally by myself, the ER physician. - Evaluation and treatment of this problem were appropriate in the emergency setting Critical care -I spent a total of >35 minutes of critical care time managing the patient, independent of any other practitioner. -The time involved in the performance of separately reportable procedures was not counted towards critical care time. Lab Data 05/07/24 19:15 05/07/24 19:15 Labs/Radiology: Radiology Impressions Chest X-Ray 05/07/24 18:16 IMPRESSION: 1. Bibasilar hazy opacities compatible with atelectasis or developing infection in the proper clinical setting. Laboratory Results WBC 12.95 10^3/uL (3.29-11.43) H 05/07/24 19:15 RBC 4.43 10^6/uL (3.85-5.65) 05/07/24 19:15 Hgb 13.90 g/dL (11.27-16.99) 05/07/24 19:15 Hct 43.8 % (37-53) 05/07/24 19:15 MCV 98.9 fl (82-101) 05/07/24 19:15 MCH 31.4 pg (27-33) 05/07/24 19:15 MCHC 31.7 g/dL (30-55) 05/07/24 19:15 RDW 14.9 % (12.1-15.1) 05/07/24 19:15 Plt Count 364 10^3/cmm (157-399) 05/07/24 19:15 MPV 9.6 fL (7.4-10.4) 05/07/24 19:15 Neut % (Auto) 86.4 % 05/07/24 19:15 Lymph % (Auto) 6.9 % 05/07/24 19:15 [place] % (Auto) 5.7 % 05/07/24 19:15 Eos % (Auto) 0.2 % 05/07/24 19:15 Baso % (Auto) 0.3 % 05/07/24 19:15 Neut # (Auto) 11.19 10^3/uL (1.8-7.7) H 05/07/24 19:15 Lymph # (Auto) 0.9 10^3/uL (0.8-4.8) 05/07/24 19:15 [place] # (Auto) 0.7 10^3/uL (0.2-0.9) 05/07/24 19:15 Eos # (Auto) 0.0 10^3/uL (0.0-0.8) 05/07/24 19:15 Baso # (Auto) 0.0 10^3/uL (0.0-0.1) 05/07/24 19:15 Nucleated RBC % (auto) 0 % 05/07/24 19:15 Nucleated RBCs # 0.0 /100WBC 05/07/24 19:15 D-Dimer 1.71 ug/mLFEU (0-0.59) H 05/07/24 19:15 Sodium 140 mmol/L (136-145) 05/07/24 19:15 Potassium 4.2 mmol/L (3.5-5.1) 05/07/24 19:15 Chloride 100 mmol/L (98-107) 05/07/24 19:15 Carbon Dioxide 27 mmol/L (22-29) 05/07/24 19:15 Anion Gap 17.2 (5-19) 05/07/24 19:15 BUN 28 mg/dL (8-23) H 05/07/24 19:15 Creatinine 1.0 mg/dL (0.7-1.2) 05/07/24 19:15 GFR Calculation Not Reportable 05/07/24 19:15 Glucose 60 mg/dL (65-115) L 05/07/24 19:15 POC Glucose 54 mg/dL (70-110) L 05/07/24 20:14 Calculated Osmolality 293 mOsm/kg (285-295) 05/07/24 19:15 Lactic Acid 2.0 mmol/L (0.5-2.2) 05/07/24 19:15 Calcium 8.9 mg/dL (8.5-10.5) 05/07/24 19:15 Total Bilirubin 0.3 mg/dL (0.15-1.2) 05/07/24 19:15 AST 37 U/L (0-40) 05/07/24 19:15 ALT 14 U/L (0-41) 05/07/24 19:15 Alkaline Phosphatase 118 U/L (40-130) 05/07/24 19:15 Troponin T Baseline 32 ng/L (0-15) H 05/07/24 19:15 Troponin T 120 Minute 28.62 ng/L (0-15) H 05/07/24 21:25 Delta Troponin T -3.38 ABS# (0-10) L 05/07/24 21:25 C-Reactive Protein 122.6 mg/L (0.0-4.9) H 05/07/24 21:25 NT-Pro-B Natriuret Pep 1212 pg/mL (0-125) H 05/07/24 19:15 Total Protein 6.9 g/dL (6.6-8.7) 05/07/24 19:15 Albumin 3.6 g/dL (3.5-5.2) 05/07/24 19:15 Globulin 3.3 g/dL (1.3-4.6) 05/07/24 19:15 Procalcitonin 1.80 ng/mL (0-0.5) H 05/07/24 21:25 Urine Color Dark yellow (Yellow) A 05/07/24 20:05 Urine Appearance Turbid (CLEAR) A 05/07/24 20:05 Urine pH 5.0 (5-7) 05/07/24 20:05 Ur Specific [place] 1.025 (1.005-1.030) 05/07/24 20:05 Urine Protein 3+ (Negative) A 05/07/24 20:05 Urine Glucose (UA) Negative (Normal) 05/07/24 20:05 Urine Ketones Trace (Negative) 05/07/24 20:05 Urine Blood 2+ (Negative) A 05/07/24 20:05 Urine Nitrate Negative (Negative) 05/07/24 20:05 Urine Bilirubin 1+ (Negative) H 05/07/24 20:05 Urine Urobilinogen 1.0 mg/dL (Negative) 05/07/24 20:05 Ur Leukocyte Esterase 2+ (Negative) A 05/07/24 20:05 Urine RBC 10-15 /hpf (0-2) H 05/07/24 20:05 Urine WBC >100 /hpf (0-5) H 05/07/24 20:05 Ur Squamous Epith Cells 0-4 /hpf (0-5) H 05/07/24 20:05 Ur Transition Epith Cell 5-10 /hpf 05/07/24 20:05 Calcium Oxalate Crystal 0-4 /hpf H 05/07/24 20:05 Amorphous Sediment 3+ /hpf 05/07/24 20:05 Urine Bacteria 1+ /hpf (NONE) H 05/07/24 20:05 Digoxin 0.7 ng/mL (0.6-1.2) 05/07/24 21:25 Coronavirus (PCR) Positive (Negative) A 05/07/24 19:15 Influenza A (PCR) Negative (Negative) 05/07/24 19:15 Influenza Type B (PCR) Negative (Negative) 05/07/24 19:15 RSV (PCR) Negative (Negative) 05/07/24 19:15 All radiology interpretation(s) finalized by discharge Discharge Plan Discharge Patient Disposition: Admitted As Inpatient Admit Provider: Clifton Coon Clinical Impression: COVID-19, Hypoxemia, DM type 2 (diabetes mellitus, type 2), Venous insufficiency, Chronic indwelling Wu catheter Condition: Stable Coding Level of Care Code ED Group Director Experience for Soheila Harry
[2024-05-07] MEDS: cefTRIAXone 1,000 mg SDV 1000 MG IVP (19:21)
[2024-05-07] MEDS: methylPREDNISolone sod succ 125 mg/2 mL INJ IVP (19:21)
[2024-05-07 19:34] LABS: Basophils % 0.3 %; Eosinophils % 0.2 %; Hematocrit 43.8 % (37-53); Lymphocytes # 0.9 10^3/uL (0.8-4.8); Lymphocytes % 6.9 %; Mean Corpuscular HGB Conc 31.7 g/dL (30-55); Mean Corpuscular Hemoglobin 31.4 pg (27-33); Mean Corpuscular Volume 98.9 fl (82-101); Mean Platelet Volume 9.6 fL (7.4-10.4); Monocytes # 0.7 10^3/uL (0.2-0.9); Monocytes % 5.7 %; Neutrophils # 11.19 10^3/uL (1.8-7.7); Neutrophils % 86.4 %; Nucleated Red Blood Cells % 0 %; Platelet Count 364 10^3/cmm (157-399); Red Blood Count 4.43 10^6/uL (3.85-5.65); Red Cell Distribution Width 14.9 % (12.1-15.1); White Blood Count 12.95 10^3/uL (3.29-11.43)
[2024-05-07] MEDS: albuterol 2.5 mg/3 mL Neb INHALATION (19:41)
[2024-05-07] MEDS: ipratropium-albuterol 3 mL Neb INHALATION (19:41)
--- NOTE | 2024-05-07 19:45 | ECG_ITS ---
[facility] Test Date: 2024-05-07 Pat Name: Allan Hardin Department: Room: Gender: Male Vendette: : 1950 Requested By: Mariya Levy Order Number: [id number] Yudelka MD: Michelle Prakash M.D. Measurements Intervals [place] Rate: 92 P: 52 MO: 136 QRS: -2 QRSD: 91 T: 82 QT: 325 QTc: 404 Interpretive Statements SINUS RHYTHM POSSIBLE LEFT ATRIAL ENLARGEMENT [-0.1mV P-WAVE IN V1/V2] INFERIOR MYOCARDIAL INFARCTION , PROBABLY OLD [40+ ms Q WAVE AND/OR ST/T ABNORMALITY IN II/aVF] Compared to ECG 07/31/2023 22:46:41 Myocardial infarct finding now present Sinus tachycardia no longer present T-wave abnormality no longer present Electronically Signed On 05-07-2024 21:16:26 COMMUNITY ASSOCIATE by Michelle Prakash M.D. [email or web address]
[2024-05-07 19:58] LABS: Troponin(5th) Baseline 32 ng/L (0-15)
[2024-05-07] MEDS: doxycycline 100 MG in sodium chloride 0.9% (plus) 100 ML IV (20:12)
[2024-05-07 20:14] LABS: Alanine Aminotransferase 14 U/L (0-41); Albumin Level 3.6 g/dL (3.5-5.2); Alkaline Phosphatase 118 U/L (40-130); Blood Urea Nitrogen 28 mg/dL (8-23); Calcium 8.9 mg/dL (8.5-10.5); Carbon Dioxide 27 mmol/L (22-29); Chloride 100 mmol/L (98-107); Creatinine Clr Calc Pharmacy 62.5324; Globulin 3.3 g/dL (1.3-4.6); Glucose 60 mg/dL (65-115); NT Pro B Type Natriuretic Pept 1212 pg/mL (0-125); Osmolality Calculated 293 mOsm/kg (285-295); Sodium 140 mmol/L (136-145); Total Bilirubin 0.3 mg/dL (0.15-1.2); Total Protein 6.9 g/dL (6.6-8.7)
[2024-05-07 20:17] LABS: Glucose Point of Care 54 mg/dL (70-110)
[2024-05-07 20:19] LABS: Anion Gap 17.2 (5-19); Aspartate Amino Transferase 37 U/L (0-40); Potassium 4.2 mmol/L (3.5-5.1)
[2024-05-07 20:51] LABS: Influenza A NEGATIVE (Negative); Influenza B NEGATIVE (Negative); Respiratory Syncytial Virus Ce NEGATIVE (Negative)
[2024-05-07 21:01] LABS: Covid PCR Positive (Negative)
[2024-05-07] MEDS: dextrose 10% 250 ML 1000 ML IV (21:15)
[2024-05-07 21:52] LABS: Troponin 5 2HR 28.62 ng/L (0-15)
[2024-05-07 21:56] LABS: Troponin 5 2HR Delta -3.38 ABS# (0-10)
[2024-05-07 21:57] LABS: Bilirubin Urine 1+ (Negative); Blood Urine 2+ (Negative); Glucose Urine UA Negative (Normal); Ketones Urine Trace (Negative); Leukocyte Esterase Urine 2+ (Negative); Nitrate Urine Negative (Negative); Protein Urine 3+ (Negative); Specific Gravity, Urine 1.025 (1.005-1.030); Urine Appearance Turbid (CLEAR); Urine Color Dark Yellow (Yellow)
[2024-05-07 22:14] LABS: Digoxin 0.7 ng/mL (0.6-1.2)
[2024-05-07 22:23] LABS: C Reactive Protein 122.6 mg/L (0.0-4.9)
[2024-05-07 22:23] LABS: Bacteria Urine 1+ /hpf; Squamous Epithelial Cell Urine 0-4 /hpf (0-5); Universal Test for UA Present (0); WBC Urine >100 /hpf (0-5)
[2024-05-07 22:24] LABS: D Dimer 1.71 ug/mLFEU (0-0.59)
[2024-05-07 22:24] LABS: Add Urine Culture? Yes; Amorphous Sediment Urine 3+ /hpf; Calcium Oxalate Crystals Urine 0-4 /hpf
--- NOTE | 2024-05-07 22:30 | CTR_ITS ---
PROCEDURE INFORMATION: Exam: CT Abdomen And Pelvis Without Contrast Exam date and time: 05/07/2024 11:47 PM Age: 73 years old Clinical indication: Bloating; Additional info: UTI TECHNIQUE: Imaging protocol: Computed tomography of the abdomen and pelvis without contrast. Radiation optimization: All CT scans at this facility use at least one of these dose optimization techniques: automated exposure control; mA and/or kV adjustment per patient size (includes targeted exams where dose is matched to clinical indication); or iterative reconstruction. COMPARISON: CT kidney stone [id number] 10/16/2022 3:08 PM RADIATION DOSE METRICS: Total DLP (mGy-cm): 808.26 FINDINGS: Lungs: Moderate bibasilar atelectasis with possible areas of consolidation in the left lung base. Heart: Heart size is within normal limits. There is no pericardial effusion or pericardial thickening. Liver: The liver is normal. No hepatic masses are identified. Gallbladder and biliary ducts: Gallstones are identified within the gallbladder. There is no gallbladder wall thickening or pericholecystic inflammatory change. Pancreas: The pancreas is normal. Spleen: The spleen is normal. Adrenal glands: The adrenal glands are normal. Kidneys and ureters: No renal calcifications are identified. There is no hydronephrosis. Bilateral perinephric changes are stable compared to prior study and consistent with chronic change. Atherosclerotic calcifications of the aorta are present. No aneurysm is identified. Stomach and bowel: Mild retained colonic stool. There is no large or small bowel obstruction. There is no evidence of bowel wall thickening. Appendix: A normal appendix is not identified. There is no secondary evidence of acute appendicitis. Intraperitoneal space: No inflammatory changes are identified. There is no free fluid or fluid collection seen. There is no pneumoperitoneum. Vasculature: Dense calcifications of the origin of the superior mesenteric artery are stable. Lymph nodes: No enlarged lymph nodes are identified. Urinary bladder: The bladder is decompressed and contains a Wu catheter. Reproductive: There is mild prostatomegaly. Bones/joints: No acute osseous abnormalities are seen. Soft tissues: Moderate soft tissue thickening adjacent to the anus is stable compared to prior study nonspecific. CT/CT abdomen pelvis wo con [id number] IMPRESSION: 1. No acute intra-abdominal or pelvic process. 2. Moderate bibasilar atelectasis with possible areas of consolidation in the left lower lobe. 3. Other nonemergent findings above.
--- NOTE | 2024-05-07 22:30 | P.HP_ITS ---
Providers/Chief Complaint 2 Primary Care Provider: MALOU Najera Chief Complaint: fever/ chest gurgle History of Present Illness Allan Hardin is a 73 year old male with a past medical history of GI bleed, history of CHF, history of chronic lymphedema, history of bilateral lower extremity wounds managed by wound care, history of chronic Wu catheter placement for neurogenic bladder, history of type 2 diabetes, peripheral arterial disease, who presents to [facility] for subjective fevers, cough, shortness of breath. Patient was seen, currently on 5 L, denies using any oxygen at home, during our conversation, his O2 sats dropped into the mid 80s, I had to bump up his oxygen to 10 L, even on 10 L his O2 sats were 88-89, in mild to moderate respiratory distress, nasal flaring, intercostal retractions, no suprasternal retractions, respiratory rate is 20, he tells me that he has been having a productive cough, increased shortness of breath, fevers, he saw his primary care provider, and started on antibiotics, he has a history of chronic lymphedema, bilateral extremity wounds, which are wrapped, managed by wound care, they were debrided over 2 weeks ago through wound care, he has neurogenic bladder for which she has a Wu catheter, Wu catheter was changed in the emergency room, does report more abdominal bloating. During our conversation patient can get most of the questions right, but at times becomes confused, at bedside helps with the history taking Review of Systems 2 Const: Reports: fever(s), chills, fatigue and malaise Card: Denies: chest pain Resp: Reports: dyspnea GI: Denies: abdominal pain : Denies: flank pain Medications/Allergies Home Medications Medication Instructions Recorded Confirmed Last Taken Type dapagliflozin propanediol 10 mg 10 mg PO DAILY 09/17/19 11/28/23 10/16/22 History tablet (Farxiga) ferrous sulfate 325 mg (65 mg 325 mg PO BID 09/17/19 11/28/23 10/16/22 History iron) tablet glyburide 5 mg tablet 5 mg PO BID 09/17/19 11/28/23 10/16/22 History ascorbic acid (vitamin C) 500 mg 500 mg PO DAILY 06/09/20 11/28/23 10/16/22 History capsule atorvastatin 40 mg tablet 40 mg PO DAILY #90 tabs 06/07/21 11/28/23 10/16/22 Rx aspirin 81 mg chewable tablet 81 mg PO DAILY 09/26/21 11/28/23 10/16/22 History isosorbide mononitrate 30 mg 30 mg PO DAILY #90 tabs 09/26/21 11/28/23 10/16/22 Rx tablet,extended release 24 hr clopidogrel 75 mg tablet 75 mg PO DAILY #90 tabs 06/19/22 11/28/23 10/16/22 Rx atenolol 25 mg tablet 25 mg PO DAILY #90 tabs 07/05/22 11/28/23 10/16/22 Rx fenofibrate 160 mg tablet 160 mg PO DAILY #90 tabs 07/05/22 11/28/23 10/16/22 Rx cyanocobalamin (vitamin B-12) 1,000 mcg PO DAILY 09/13/22 11/28/23 10/16/22 History 1,000 mcg tablet omeprazole 40 mg capsule,delayed 40 mg PO DAILY 09/13/22 11/28/23 10/16/22 History release digoxin 125 mcg (0.125 mg) tablet 125 mcg PO DAILY #90 tabs 10/12/22 11/28/23 10/16/22 Rx (Digox) furosemide 40 mg tablet 60 mg PO DAILY PRN Edema 10/16/22 11/28/23 10/16/22 History omega-3 fatty acids-fish oil 360 1 cap PO BID 10/16/22 11/28/23 10/16/22 History mg-1,200 mg capsule (Fish Oil) potassium chloride 20 mEq 30 meq PO DAILY 10/16/22 11/28/23 10/16/22 History tablet,extended release(part/cryst) pregabalin 100 mg capsule 100 mg PO BID 10/16/22 11/28/23 10/16/22 History insulin glargine 100 unit/mL (3 See Rx Instructions SUBCUT BID 11/28/23 11/28/23 Unknown History mL) subcutaneous pen (Basaglar KwikPen U-100 Insulin) nitroglycerin 0.4 mg sublingual 0.4 mg sublingual Q5M PRN chest 11/28/23 11/28/23 Unknown Rx tablet pain #20 tabs Allergies Allergy/AdvReac Type Severity Reaction Status Date / Time Penicillins Allergy Unknown Unknown Verified 05/07/24 18:36 PFSH Acute 2 PFSH: Medical History Macrocytic anemia Unable to ambulate Former smoker Lymphedema History of NV (myocardial infarction) Diabetes mellitus CAD (coronary artery disease) PAD (peripheral artery disease) Venous insufficiency Phimosis Surgical History S/P peripheral artery angioplasty with stent placement S/P appendectomy Family History Brother Diabetes Mother Diabetes Sister Diabetes Father Stroke Social History Smoking and tobacco/nicotine status: unknown if used tobacco/nicotine Quit status (tobacco/nicotine): has quit using Year quit tobacco: 4 ya Alcohol intake: former Substance/Drug Use: never Lives independently: No Household members: spouse Marital status: Current occupational status: disabled Vitals/I&O/Wt Last Vital Signs Temp 98.6 F 05/07/24 18:33 Pulse 99 05/07/24 21:15 Resp 20 H 05/07/24 19:43 BP 114/49 05/07/24 21:00 Pulse Ox 90 05/07/24 21:15 O2 Del Method Nasal Cannula 05/07/24 21:15 O2 Flow Rate 5 05/07/24 19:43 05/07/24 05/07/24 05/07/24 06:59 14:59 22:59 Intake Total 0 / 0 Balance 0 / 0 Weight last 48 hrs Weight 74.843 kg Physical Exam 2 Const: COMMON NORMALS: no acute distress EXAM LIMITATIONS: altered mental status ORIENTATION/CONSCIOUSNESS: Yes awake, Yes oriented to person, Yes oriented to place and Yes confused Eye: COMMON NORMALS: Equal, round and reactive pupils present Resp: EFFORT & INSPECTION: Yes tachypneic, Yes respiratory distress, Yes Actively coughing, Yes retractions and Yes uses accessory muscles A USCULTATION: crackles and wheezes Cardio: COMMON NORMALS: no JVD, regular rate, regular rhythm, S1 normal heart sound present and S2 normal heart sound present RATE: regular rate RHYTHM: regular rhythm HEART SOUNDS: S1 normal heart sound present and S2 normal heart sound present GI: COMMON NORMALS: Normal to inspection, nondistended, normoactive bowel sounds present, Soft to palpation and non-tender : OTHER: No CVA tenderness, Wu catheter in place Extremity: NARRATIVE EXTREMITY EXAM: 1+ edema, bilateral extremity wrapped, d orsal aspect of bilateral foot, along the digits, has superficial wounds, and very stages of healing Neuro: COMMON NORMALS: CN's II-XII intact bilaterally and moves all extremities Psych: COMMON NORMALS: mental status grossly normal Data 05/07/24 19:15 05/07/24 19:15 Micro: Microbiology 05/07/24 19:20 Blood Culture - Preliminary Blood SPECIMEN COLLECTED 05/07/24 19:15 Blood Culture - Preliminary Blood SPECIMEN COLLECTED A&P Assessment and plan (1) Acute hypoxic respiratory failure: (2) Pneumonia due to COVID-19 virus: (3) NSTEMI (non-ST elevated myocardial infarction): (4) Urinary tract infection: (5) Congestive heart failure: Qualifiers: Heart failure chronicity: unspecified Heart failure type: unspecified Qualified Code(s): I50.9 - Heart failure, unspecified (6) DM type 2 (diabetes mellitus, type 2): (7) PAD (peripheral artery disease): (8) Chronic indwelling Wu catheter: (9) Venous ulcer of lower extremity without varicose veins: (10) Encephalopathy acute: (11) Secondary bacterial pneumonia: Plan Acute hypoxic respiratory failure -Secondary to COVID-19 pneumonia -Concerns for sided bacterial pneumonia, CRP 122, Pro-Harjit 1.8 # With evidence of mild to moderate respiratory distress -Plan ? Due to evidence of mild to moderate respiratory distress, monitor in ICU place patient on BiPAP -CT angiogram of the chest -Sputum cultures ? Blood cultures ? Decadron 6 mg IV push every 24 hours # DuoNeb ? Budesonide ? Remdesivir -Start vancomycin, meropenem concerns for secondary bacterial pneumonia ? Monitor respiratory status closely -Will start BiPAP therapy in the ICU -Full code -Lovenox for DVT prophylaxis Complicated urinary tract infection -History of chronic indwelling Wu catheter -Urine culture -Blood culture -Meropenem Type 2 diabetes mellitus -Decrease Lantus to 40 units twice daily -Moderate dose sliding scale CAD, with NSTEMI -No complaints of chest pain -Continue aspirin, statin, Plavix Acute encephalopathy ? Likely secondary to COVID-19 pneumonia, acute hypoxia, bacterial pneumonia -Neurochecks, aspiration precautions Attestations 2 Medical Necessity Statement*: Patient requires hospitalization, inpatient, greater than 2 midnights, for acute hypoxic respiratory failure, multifactorial from COVID-19 pneumonia, concerns for secondary bacterial pneumonia, acute encephalopathy, NSTEMI Diagnoses Acute hypoxic respiratory failure J96.01 Pneumonia due to COVID-19 virus U07.1; J12.82 NSTEMI (non-ST elevated myocardial infarction) I21.4 Urinary tract infection N39.0 Congestive heart failure I50.9 Heart failure chronicity: unspecified Heart failure type: unspecified DM type 2 (diabetes mellitus, type 2) E11.9 PAD (peripheral artery disease) I73.9 Chronic indwelling Wu catheter Z97.8 Venous ulcer of lower extremity without varicose veins I87.2; L97.909 Encephalopathy acute G93.40 Secondary bacterial pneumonia J15.9
--- NOTE | 2024-05-07 22:30 | CTR_ITS ---
PROCEDURE INFORMATION: Exam: CTA Chest With Contrast Exam date and time: 05/07/2024 11:51 PM Age: 73 years old Clinical indication: Cough and dyspnea and other: Covid +, resp failure; Additional info: Resp failure, covid TECHNIQUE: Imaging protocol: Computed tomographic angiography of the chest with contrast. Exam focused on the arteries. 3D rendering (Not supervised by radiologist): MIP and/or 3D reconstructed images were created by the technologist. Radiation optimization: All CT scans at this facility use at least one of these dose optimization techniques: automated exposure control; mA and/or kV adjustment per patient size (includes targeted exams where dose is matched to clinical indication); or iterative reconstruction. Contrast material: [id number]; Contrast volume: 100 ml; Contrast route: INTRAVENOUS (IV); COMPARISON: CT angio chest PE protcl [id number] 10/16/2022 3:08 PM RADIATION DOSE METRICS: Total DLP (mGy-cm): 440.1 FINDINGS: Limitations: Breathing artifact. Pulmonary arteries: The pulmonary arteries are adequately visualized to the proximal segmental level. No filling defects are identified to suggest central pulmonary artery embolism. Main pulmonary artery is normal in size. Aorta: Atherosclerotic calcifications of the aorta are present. No aneurysm is identified. Lungs: Rukm-ll-xkllxqrp emphysematous change. Evaluation of the pulmonary parenchyma is limited by breathing artifact. Scattered subpleural reticular opacities may represent fibrotic or atelectatic changes. Moderate [id number]-axgr-right basilar atelectasis with possible left basilar consolidation. Pleural spaces: No pleural effusion or pneumothorax. Heart: Heart size is within normal limits. There is no pericardial effusion or pericardial thickening. Coronary arteries: Severe coronary artery calcification. Lymph nodes: Multiple prominent mediastinal lymph nodes, some of which are calcified, all appear similar compared to 10/16/2022. Bones/joints: No acute osseous abnormalities are seen. Soft tissues: The soft tissues are within normal limits. CT/CT angio chest PE protcl [id number] IMPRESSION: 1. Limited study without evidence of central pulmonary artery embolism. 2. Moderate pkzx-nbetgci-mhjv-right basilar atelectasis possible left basilar consolidation. COMMENTS: The presence of pulmonary emphysema on CT is an independent risk factor for lung cancer. In the absence of a history or active diagnosis of lung cancer, it is recommended that this patient with emphysema be evaluated for enrollment in a low dose CT lung cancer screening program.
[2024-05-08] VITALS (48 sets, daily range): BP systolic 99–138; BP diastolic 46–95; PULSE 56–114; RESP 20; TEMP 36.3–36.8; O2SAT 89–99
[2024-05-08] MEDS: iohexol 350 mg/mL 500 mL Btl (per mL) IV (00:04)
[2024-05-08 02:01] LABS: Troponin 5 6HR 24.33 ng/L (0-15)
[2024-05-08 02:06] LABS: Troponin 5 6HR Delta -7.67 ng/L (0-12)
--- NOTE | 2024-05-08 02:54 | USCV_ITS ---
WilfredAllan Age: 73 Gender: M : 1950 Exam Date: 05/08/2024 04:19 Ordering Phys: Clifton Coon MD Technologist: TONE [place]am Location[place] [facility] [place]: swelling HISTORY: swelling PROCEDURES: Venous duplex imaging was performed in bilateral lower extremities. The following venous structures were evaluated: common femoral vein, profunda vein, proximal portion of the greater saphenous vein, superficial femoral vein, and the popliteal vein. In addition, the posterior tibial veins were evaluated. Serial compression, augmentation maneuvers, and spectral Doppler flow evaluation were performed, which were normal. Bilaterally, the common femoral, superficial femoral, profunda femoral, popliteal, posterior tibial, and greater saphenous veins were identified and interrogated in the standard fashion. These veins were found to be easily compressible with spontaneous blood flow. No evidence of thrombus noted. CONCLUSIONS No evidence of right lower extremity DVT. No evidence of left lower extremity DVT. Denny Montague MD (Electronically Signed) Final Date: 08 May 2024 11:08 S
[2024-05-08] MEDS: vancomycin 1,500 MG/300 ML PIGGYBACK 200 MG IV (03:58)
[2024-05-08] MEDS: enoxaparin 40 mg/0.4 mL Syringe SUBCUT (03:58)
[2024-05-08] MEDS: meropenem 500 mg SDV IVP (03:58)
[2024-05-08] MEDS: pantoprazole 40 mg SDV IVP (03:58)
[2024-05-08 04:17] LABS: ABG PCO2 46.7 mmHg (35-45); ABG PH Result 7.37 (7.35-7.45); Base Excess ABG 0.9 mmol/L (-2.0-2.0); PO2 ABG 82.4 mmHg (80.0-100.0)
[2024-05-08 04:18] LABS: Blood Gas Drawn By BUSJA; Oxygen Device NC; Potassium Level - ABG 3.6 mmol/L (3.5-5.0)
[2024-05-08 04:19] LABS: Carboxyhemoglobin 0.6 %THgb (0.4-20.1); HGB O2 Sat 93.3 % (95-100); Ionized Calcium Level - ABG 1.2 mmol/L (1.1-1.4); Methemoglobin 1.1 % (0.4-1.5); Total Hemoglobin 17.9 g/dL (14-18)
[2024-05-08 04:34] LABS: Basophils % 0.3 %; Hematocrit 39.8 % (37-53); Lymphocytes # 0.5 10^3/uL (0.8-4.8); Lymphocytes % 3.4 %; Mean Corpuscular HGB Conc 30.9 g/dL (30-55); Mean Corpuscular Hemoglobin 31.1 pg (27-33); Mean Corpuscular Volume 100.8 fl (82-101); Mean Platelet Volume 9.7 fL (7.4-10.4); Monocytes # 0.4 10^3/uL (0.2-0.9); Neutrophils # 12.97 10^3/uL (1.8-7.7); Neutrophils % 92.6 %; Nucleated Red Blood Cells % 0 %; Platelet Count 335 10^3/cmm (157-399); Red Blood Count 3.95 10^6/uL (3.85-5.65); Red Cell Distribution Width 15.1 % (12.1-15.1)
[2024-05-08] MEDS: remdesivir 200 MG in sodium chloride 0.9% (100 ml) 60 ML 100 MG IV (04:35)
[2024-05-08 04:50] LABS: Estmated Average Glucose 283; Hemoglobin A1C 11.5 % (4.0-6.0)
[2024-05-08 04:58] LABS: Chol HDL Ratio 7.58 mg/dL (1.0-5.00); Cholesterol 182 mg/dL (0-200); HDL Cholesterol 24 mg/dL (60-100); LDL Cholesterol Calculated 116 mg/dL (50-129); LDL HDL Ratio 4.83 RATIO (0.00-3.22); NT Pro B Type Natriuretic Pept 1441 pg/mL (0-125); Thyroid Stimulating Hormone 0.72 uIU/mL (0.27-4.20); Triglycerides 211 mg/dL (0-150)
[2024-05-08 05:04] LABS: Alanine Aminotransferase 14 U/L (0-41); Albumin Level 3.4 g/dL (3.5-5.2); Alkaline Phosphatase 105 U/L (40-130); Anion Gap 17.3 (5-19); Aspartate Amino Transferase 31 U/L (0-40); Blood Urea Nitrogen 30 mg/dL (8-23); Calcium 8.9 mg/dL (8.5-10.5); Carbon Dioxide 28 mmol/L (22-29); Chloride 101 mmol/L (98-107); Creatinine Clr Calc Pharmacy 59.5667; Globulin 3.3 g/dL (1.3-4.6); Glucose 100 mg/dL (65-115); Magnesium 1.9 mg/dL (1.7-2.3); Osmolality Calculated 300 mOsm/kg (285-295); Potassium 4.3 mmol/L (3.5-5.1); Sodium 142 mmol/L (136-145); Total Bilirubin 0.2 mg/dL (0.15-1.2); Total Protein 6.7 g/dL (6.6-8.7)
--- NOTE | 2024-05-08 05:37 | PC.NURSE ---
Pt arrived from ED at 0250 via stretcher, extremely talkative, friendly, alert, oriented to self and place. 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 Abrasions present to anterior sides of second, third, and fourth toes of right foot, and second toe of left foot. Spouse states he sees Dr. Lock at wound care for lymphedema wraps (present on admission) and toe wounds. Purple discoloration present to entire buttocks and upper thighs but is all blanchable. Chronic perla, reported to have been changed this date in ED. Spouse states patient had a fall in 2016 and there was a suspected back injury that caused inablity to use legs, but was never confirmed as he was already debilitated due to lymphedema.
[2024-05-08 08:38] LABS: Glucose Point of Care 147 mg/dL (70-110)
--- NOTE | 2024-05-08 08:58 | PHA.VACGOAL ---
Vancomycin Goal - Goal Vancomycin Goal:: 15-20 mg/L Vancomycin Indication:: Pneumonia - Therapy Day of therpy:: Day 1 of [] Actual body weight (kg): 182 lb - Data Labs: WBC 14.00 10^3/uL (3.29-11.43) H 05/08/24 03:50 RBC 3.95 10^6/uL (3.85-5.65) 05/08/24 03:50 Hgb 12.30 g/dL (11.27-16.99) 05/08/24 03:50 Hct 39.8 % (37-53) 05/08/24 03:50 MCV 100.8 fl (82-101) 05/08/24 03:50 MCH 31.1 pg (27-33) 05/08/24 03:50 MCHC 30.9 g/dL (30-55) 05/08/24 03:50 RDW 15.1 % (12.1-15.1) 05/08/24 03:50 Sodium 142 mmol/L (136-145) 05/08/24 03:50 Potassium 4.3 mmol/L (3.5-5.1) 05/08/24 03:50 Chloride 101 mmol/L (98-107) 05/08/24 03:50 Carbon Dioxide 28 mmol/L (22-29) 05/08/24 03:50 Anion Gap 17.3 (5-19) 05/08/24 03:50 BUN 30 mg/dL (8-23) H 05/08/24 03:50 Creatinine 1.1 mg/dL (0.7-1.2) 05/08/24 03:50 GFR Calculation Not Reportable 05/08/24 03:50 Last dialysis session:: N/A Treatment plan:: new consult Regimen:: TELEPHARMACY: 1500 MG LOADING DOSE MAINTENANCE DOSE 1250 MG Q12H Follow up:: WILL CONTINUE TO MONITOR AND FOLLOW UP DAILY
[2024-05-08] MEDS: budesonide 0.5 mg/2 mL Neb INHALATION (09:09)
[2024-05-08] MEDS: ipratropium-albuterol 3 mL Neb INHALATION (09:09)
[2024-05-08] MEDS: aspirin 81 mg Chew Tablet PO (09:32)
[2024-05-08] MEDS: pregabalin 100 mg Capsule PO (09:32)
[2024-05-08] MEDS: atorvastatin 40 mg Tablet PO (09:32)
[2024-05-08] MEDS: fenofibrate 145 mg Tablet PO (09:32)
[2024-05-08] MEDS: clopidogrel 75 mg Tablet PO (09:32)
[2024-05-08] MEDS: digoxin 125 mcg Tablet PO (09:32)
[2024-05-08] MEDS: insulin lispro 100 unit/1 mL SUBCUT (09:32)
[2024-05-08] MEDS: insulin glargine 100 units/1 mL 40 UNIT SUBCUT (09:33)
[2024-05-08] MEDS: dexamethasone 10 mg/mL INJ 6 MG IVP (09:33)
[2024-05-08 09:48] LABS: Alveolar-Arterial Oxygen Gradi 1.5 mmHg (5-10); Arterial Blood Gas Hematocrit 54.9 % (42-52); Blood Gas Allen Test Pos; Blood Gas Operator Identificat 600455; Blood Gas Sample Site Radial, right; Blood Gas Sample Type Arterial
--- NOTE | 2024-05-08 10:00 | P.DS_ITS ---
Discharge Providers Date of Admission: 05/07/24 21:32 Date of Discharge: May 08, 2024 Attending Provider at Admission: Clifton Coon MD Attending Provider at Discharge: Yohan Bowling MD Primary Care Provider: MALOU Najera Diagnoses at Discharge Discharge Diagnosis (1) Acute hypoxic respiratory failure: Status: Acute (2) Pneumonia due to COVID-19 virus: Status: Acute (3) NSTEMI (non-ST elevated myocardial infarction): Status: Acute (4) Urinary tract infection: Status: Acute (5) Congestive heart failure: Status: Acute Qualifiers: Heart failure chronicity: unspecified Heart failure type: unspecified Qualified Code(s): I50.9 - Heart failure, unspecified (6) DM type 2 (diabetes mellitus, type 2): Status: Acute (7) PAD (peripheral artery disease): Status: Acute (8) Chronic indwelling Wu catheter: Status: Acute (9) Venous ulcer of lower extremity without varicose veins: Status: Acute (10) Encephalopathy acute: Status: Acute (11) Secondary bacterial pneumonia: Status: Acute Reason for Visit Reason for Visit: fever/ chest gurgle Brief History: History as per HPI: Allan Hardin is a 73 year old male with a past medical history of GI bleed, history of CHF, history of chronic lymphedema, history of bilateral lower extremity wounds managed by wound care, history of chronic Wu catheter placement for neurogenic bladder, history of type 2 diabetes, peripheral arterial disease, who presents to [facility] for subjective fevers, cough, shortness of breath. Patient was seen, currently on 5 L, denies using any oxygen at home, during our conversation, his O2 sats dropped into the mid 80s, I had to bump up his oxygen to 10 L, even on 10 L his O2 sats were 88-89, in mild to moderate respiratory distress, nasal flaring, intercostal retractions, no suprasternal retractions, respiratory rate is 20, he tells me that he has been having a productive cough, increased shortness of breath, fevers, he saw his primary care provider, and started on antibiotics, he has a history of chronic lymphedema, bilateral extremity wounds, which are wrapped, managed by wound care, they were debrided over 2 weeks ago through wound care, he has neurogenic bladder for which she has a Wu catheter, Wu catheter was changed in the emergency room, does report more abdominal bloating. During our conversation patient can get most of the questions right, but at times becomes confused, at bedside helps with the history taking Hospital Course Hospital Course Patient was admitted to hospitalist evaluation and management of hypoxic respiratory failure in setting of COVID-19 with concerns for superadded bacterial infection along with UTI. He was started on treatment with remdesivir, steroids and nebulization treatment as per protocol for COVID-19 along with broad-spectrum antibiotics in setting of possible superadded bacterial infection and UTI. Patient has been doing fairly well and has been improving. Patient did have mild encephalopathy on admission but had resolved. On resolution of patient's encephalopathy he was adamant about going back home. He and his family was explained multiple times regarding risks of going home early without completion of treatment specially in setting of COVID-19 with concerns about respiratory failure lobe getting worse leading to respiratory failure requiring mechanical ventilation or even . Patient verbalized understanding but was adamant on being discharged. Care were discussed in detail with patient's family as well who tried to convince him but he was adamant. Eventually patient left AGAINST MEDICAL ADVICE stating he did not believe he had COVID-19. Physical Exam Const: COMMON NORMALS: no acute distress EXAM LIMITATIONS: altered mental status ORIENTATION/CONSCIOUSNESS: Yes awake, Yes oriented to person, Yes oriented to place and Yes confused Eye: COMMON NORMALS: Equal, round and reactive pupils present PUPIL: Yes Equal, round and reactive pupils present Neck/C-Spine: COMMON NORMALS: no JVD Resp: EFFORT & INSPECTION: Yes tachypneic, Yes respiratory distress, Yes Actively coughing, Yes retractions and Yes uses accessory muscles AUSCULTATION: crackles and wheezes Cardio: COMMON NORMALS: no JVD, regular rate, regular rhythm, S1 normal heart sound present and S2 normal heart sound present RATE: regular rate RHYTHM: regular rhythm HEART SOUNDS: S1 normal heart sound present and S2 normal heart sound present GI: COMMON NORMALS: Normal to inspection, nondistended, normoactive bowel sounds present, Soft to palpation and non-tender PALPATION: Yes Soft to palpation : OTHER: No CVA tenderness, Wu catheter in place Extremity: NARRATIVE EXTREMITY EXAM: 1+ edema, bilateral extremity wrapped, d orsal aspect of bilateral foot, along the digits, has superficial wounds, and very stages of healing Neuro: COMMON NORMALS: CN's II-XII intact bilaterally and moves all extremities SENSORIUM/ORIENTATION: Yes oriented to person and Yes oriented to place Psych: COMMON NORMALS: mental status grossly normal Discharge Data Studies Completed and Pending Completed Studies During Hospitalization Category Date Time Status CT abdomen pelvis wo con [id number] Stat Cat Scan 05/07/24 22:[address] angio chest PE protcl [id number] Stat Cat Scan 05/07/24 22:30 Completed XR chest 1V portable [id number] Stat Exams 05/07/24 18:16 Completed Pending at discharge Category Date Time Status Blood Culture Stat Lab 05/07/24 19:20 Results Sputum Culture and Gram Stain Stat Lab 05/07/24 22:49 Uncollected Urine Culture Stat Lab 05/07/24 20:05 [place] [id number] Routine Ultrasound 05/08/24 02:54 Taken Radiology Impressions Chest X-Ray 05/07/24 18:16 IMPRESSION: 1. Bibasilar hazy opacities compatible with atelectasis or developing infection in the proper clinical setting. Abdomen/Pelvis CT 05/07/24 22:30 IMPRESSION: 1. No acute intra-abdominal or pelvic process. 2. Moderate bibasilar atelectasis with possible areas of consolidation in the left lower lobe. 3. Other nonemergent findings above. Chest CTA 05/07/24 22:30 IMPRESSION: 1. Limited study without evidence of central pulmonary artery embolism. 2. Moderate [id number]-right basilar atelectasis possible left basilar consolidation. COMMENTS: The presence of pulmonary emphysema on CT is an independent risk factor for lung cancer. In the absence of a history or active diagnosis of lung cancer, it is recommended that this patient with emphysema be evaluated for enrollment in a low dose CT lung cancer screening program. Laboratory Results WBC 14.00 10^3/uL (3.29-11.43) H 05/08/24 03:50 RBC 3.95 10^6/uL (3.85-5.65) 05/08/24 03:50 Hgb 12.30 g/dL (11.27-16.99) 05/08/24 03:50 Hct 39.8 % (37-53) 05/08/24 03:50 MCV 100.8 fl (82-101) 05/08/24 03:50 MCH 31.1 pg (27-33) 05/08/24 03:50 MCHC 30.9 g/dL (30-55) 05/08/24 03:50 RDW 15.1 % (12.1-15.1) 05/08/24 03:50 Plt Count 335 10^3/cmm (157-399) 05/08/24 03:50 MPV 9.7 fL (7.4-10.4) 05/08/24 03:50 Neut % (Auto) 92.6 % 05/08/24 03:50 Lymph % (Auto) 3.4 % 05/08/24 03:50 Curry % (Auto) 3.0 % 05/08/24 03:50 Eos % (Auto) 0.0 % 05/08/24 03:50 Baso % (Auto) 0.3 % 05/08/24 03:50 Neut # (Auto) 12.97 10^3/uL (1.8-7.7) H 05/08/24 03:50 Lymph # (Auto) 0.5 10^3/uL (0.8-4.8) L 05/08/24 03:50 Curry # (Auto) 0.4 10^3/uL (0.2-0.9) 05/08/24 03:50 Eos # (Auto) 0.0 10^3/uL (0.0-0.8) 05/08/24 03:50 Baso # (Auto) 0.0 10^3/uL (0.0-0.1) 05/08/24 03:50 Nucleated RBC % (auto) 0 % 05/08/24 03:50 Nucleated RBCs # 0.0 /100WBC 05/08/24 03:50 D-Dimer 1.71 ug/mLFEU (0-0.59) H 05/07/24 19:15 Specimen Type Arterial 05/07/24 18:49 Sample Site Radial, right 05/07/24 18:49 ABG pH 7.37 (7.35-7.45) 05/07/24 18:49 ABG pCO2 46.7 mmHg (35-45) H 05/07/24 18:49 ABG pO2 82.4 mmHg (80.0-100.0) 05/07/24 18:49 ABG HCO3 27.0 mmol/L (22-26) H 05/07/24 18:49 ABG O2 Saturation 95.0 05/07/24 18:49 ABG Base Excess 0.9 mmol/L (-2.0-2.0) 05/07/24 18:49 Joseluis Test Pos 05/07/24 18:49 A-a O2 Gradient 1.5 mmHg (5-10) L 05/07/24 18:49 Hematocrit 54.9 % (42-52) H 05/07/24 18:49 Hgb O2 Saturation 93.3 % (95-100) L 05/07/24 18:49 Carboxyhemoglobin 0.6 %THgb (0.4-20.1) 05/07/24 18:49 Methemoglobin 1.1 % (0.4-1.5) 05/07/24 18:49 Total Hemoglobin 17.9 g/dL (14-18) 05/07/24 18:49 Sodium 141.0 mmol/L (131-143) 05/07/24 18:49 Potassium 3.6 mmol/L (3.5-5.0) 05/07/24 18:49 Glucose 54.0 mg/dL (70-115) L 05/07/24 18:49 Ionized Calcium 1.2 mmol/L (1.1-1.4) 05/07/24 18:49 O2 Delivery Device Nc 05/07/24 18:49 O2 Liters/Min 5.0 % 05/07/24 18:49 Specimen Drawn By Negro 05/07/24 18:49 Chief Controller Tower ID [id number] 05/07/24 18:49 Sodium 142 mmol/L (136-145) 05/08/24 03:50 Potassium 4.3 mmol/L (3.5-5.1) 05/08/24 03:50 Chloride 101 mmol/L (98-107) 05/08/24 03:50 Carbon Dioxide 28 mmol/L (22-29) 05/08/24 03:50 Anion Gap 17.3 (5-19) 05/08/24 03:50 BUN 30 mg/dL (8-23) H 05/08/24 03:50 Creatinine 1.1 mg/dL (0.7-1.2) 05/08/24 03:50 GFR Calculation Not Reportable 05/08/24 03:50 Glucose 100 mg/dL (65-115) 05/08/24 03:50 POC Glucose 147 mg/dL (70-110) H 05/08/24 08:32 Estimat Average Glucose 283 05/08/24 03:50 Hemoglobin A1c 11.5 % (4.0-6.0) H 05/08/24 03:50 Calculated Osmolality 300 mOsm/kg (285-295) H 05/08/24 03:50 Lactic Acid 2.0 mmol/L (0.5-2.2) 05/07/24 19:15 Calcium 8.9 mg/dL (8.5-10.5) 05/08/24 03:50 Magnesium 1.9 mg/dL (1.7-2.3) 05/08/24 03:50 Total Bilirubin 0.2 mg/dL (0.15-1.2) 05/08/24 03:50 AST 31 U/L (0-40) 05/08/24 03:50 ALT 14 U/L (0-41) 05/08/24 03:50 Alkaline Phosphatase 105 U/L (40-130) 05/08/24 03:50 Troponin T Baseline 32 ng/L (0-15) H 05/07/24 19:15 Troponin T 120 Minute 28.62 ng/L (0-15) H 05/07/24 21:25 Delta Troponin T -3.38 ABS# (0-10) L 05/07/24 21:25 Troponin T Hi Sens 6Hr 24.33 ng/L (0-15) H 05/08/24 01:29 Troponin T Hi Sens 6Hr Delta -7.67 ng/L (0-12) L 05/08/24 01:29 C-Reactive Protein 122.6 mg/L (0.0-4.9) H 05/07/24 21:25 NT-Pro-B Natriuret Pep 1441 pg/mL (0-125) H 05/08/24 03:50 Total Protein 6.7 g/dL (6.6-8.7) 05/08/24 03:50 Albumin 3.4 g/dL (3.5-5.2) L 05/08/24 03:50 Globulin 3.3 g/dL (1.3-4.6) 05/08/24 03:50 Triglycerides 211 mg/dL (0-150) H 05/08/24 03:50 Cholesterol 182 mg/dL (0-200) 05/08/24 03:50 LDL Cholesterol, Calc 116 mg/dL (50-129) 05/08/24 03:50 HDL Cholesterol 24 mg/dL (60-100) L 05/08/24 03:50 LDL/HDL Ratio 4.83 RATIO (0.00-3.22) H 05/08/24 03:50 Cholesterol/HDL Ratio 7.58 mg/dL (1.0-5.00) H 05/08/24 03:50 Procalcitonin 1.80 ng/mL (0-0.5) H 05/07/24 21:25 TSH 0.72 uIU/mL (0.27-4.20) 05/08/24 03:50 Urine Color Dark yellow (Yellow) A 05/07/24 20:05 Urine Appearance Turbid (CLEAR) A 05/07/24 20:05 Urine pH 5.0 (5-7) 05/07/24 20:05 Ur Specific [place] 1.025 (1.005-1.030) 05/07/24 20:05 Urine Protein 3+ (Negative) A 05/07/24 20: Urine Glucose (UA) Negative (Normal) 05/07/24 20:05 Urine Ketones Trace (Negative) 05/07/24 20:05 Urine Blood 2+ (Negative) A 05/07/24 20: Urine Nitrate Negative (Negative) 05/07/24 20: Urine Bilirubin 1+ (Negative) H 05/07/24 20:05 Urine Urobilinogen 1.0 mg/dL (Negative) 05/07/24 20:05 Ur Leukocyte Esterase 2+ (Negative) A 05/07/24 20:05 Urine RBC 10-15 /hpf (0-2) H 05/07/24 20:05 Urine WBC >100 /hpf (0-5) H 05/07/24 20:05 Ur Squamous Epith Cells 0-4 /hpf (0-5) H 05/07/24 20:05 Ur Transition Epith Cell 5-10 /hpf 05/07/24 20:05 Calcium Oxalate Crystal 0-4 /hpf H 05/07/24 20:05 Amorphous Sediment 3+ /hpf 05/07/24 20:05 Urine Bacteria 1+ /hpf (NONE) H 05/07/24 20:05 Digoxin 0.7 ng/mL (0.6-1.2) 05/07/24 21:25 Coronavirus (PCR) Positive (Negative) A 05/07/24 19:15 Influenza A (PCR) Negative (Negative) 05/07/24 19:15 Influenza Type B (PCR) Negative (Negative) 05/07/24 19:15 RSV (PCR) Negative (Negative) 05/07/24 19:15 Vitals Last Vital Signs Temp 97.4 F L 05/08/24 04:00 Pulse 114 H 05/08/24 09:32 Resp 20 H 05/08/24 08:50 BP 105/56 05/08/24 05:25 Pulse Ox 91 05/08/24 08:50 O2 Del Method Room Air 05/08/24 08:50 O2 Flow Rate 10 05/07/24 23:00 Discharge Plan Discharge Patient Disposition: Left Against Medical Advice Condition: Stable Prescriptions: No Action ascorbic acid (vitamin C) 500 mg capsule 500 mg PO DAILY aspirin 81 mg tablet,chewable 81 mg PO DAILY Farxiga 10 mg tablet 10 mg PO DAILY atorvastatin 40 mg tablet 40 mg PO DAILY Qty: 90 3RF omeprazole 40 mg capsule,delayed release(DR/EC) 40 mg PO DAILY cyanocobalamin (vitamin B-12) 1,000 mcg tablet 1,000 mcg PO DAILY insulin glargine [Basaglar KwikPen U-100 Insulin] 100 unit/mL (3 mL) insulin pen 80 unit SUBCUT BID Rx Instructions: 80 units in AM, 100 units in PM nitroglycerin 0.4 mg tablet, sublingual 0.4 mg sublingual Q5M PRN (Reason: chest pain) Qty: 20 3RF Rx Instructions: do not exceed 3 doses per episode atenolol 25 mg tablet 25 mg PO DAILY Qty: 90 1RF pregabalin 100 mg capsule 100 mg PO BID omega-3 fatty acids-fish oil [Fish Oil] 360-1,200 mg Capsule 1 cap PO BID furosemide 40 mg tablet 60 mg PO DAILY PRN (Reason: Edema) potassium chloride 20 mEq tablet,ER particles/crystals 30 meq PO DAILY digoxin 125 mcg (0.125 mg) tablet 125 mcg PO DAILY glimepiride 2 mg tablet 2 mg PO DAILY gemfibrozil 600 mg tablet 600 mg PO BID ergocalciferol (vitamin D2) 1,250 mcg (50,000 unit) capsule 1,250 mcg PO Q7D doxycycline hyclate 100 mg tablet 100 mg PO BID Janumet 50-1,000 mg tablet 1 tab PO BID insulin glargine [Basaglar KwikPen U-100 Insulin] 100 unit/mL (3 mL) insulin pen 80 unit SUBCUT BID insulin degludec [Tresiba FlexTouch U-200] 200 unit/mL (3 mL) insulin pen 90 unit SUBCUT BID Referrals: Dilip Solano FNP [Primary Care Provider] - Patient Instructions: Opioid Safety Discharge Attestations Time Spent in Discharge Care*: greater than 30 min Specific Discharge Activities: educating patient, educating and/or supporting family/caregiver, discussing with pcp/other providers, discussing with rn case mgr/social workers/dc planners, documenting/other paperwork and evaluating patient/reviewing data Status at Discharge: Cognitive status at discharge: cognitively intact , Behavioral status at discharge: cooperative , Functional status at discharge: other assisted ambulation , Overall status at discharge: patient is not back to baseline Quality Metrics Clinical Quality Measures [ No reported AMI, CVA or VTE this stay] Coding Level of Care Code 53075 Total time (in minutes) for Discharge: 60 Diagnoses Acute hypoxic respiratory failure J96.01 Pneumonia due to COVID-19 virus U07.1; J12.82 NSTEMI (non-ST elevated myocardial infarction) I21.4 Urinary tract infection N39.0 Congestive heart failure I50.9 Heart failure chronicity: unspecified Heart failure type: unspecified DM type 2 (diabetes mellitus, type 2) E11.9 PAD (peripheral artery disease) I73.9 Chronic indwelling Wu catheter Z97.8 Venous ulcer of lower extremity without varicose veins I87.2; L97.909 Encephalopathy acute G93.40 Secondary bacterial pneumonia J15.9
--- NOTE | 2024-05-08 10:00 | PC.NURSE ---
Patient wanted to leave AMA, DR. Bowling and spoke with patient, after education from provider and this nurse patient still wanting to leave AMA, form signed and IV dc, at bedside during discussion
--- NOTE | 2024-05-08 10:19 | PC.NURSE ---
patient left facility with family
== END 2024-05-08 10:23 | disposition left against medical advice (07) | DRG 177 ==
LOC: ER 21:35 → ICU 22:32
PROVIDERS: Emergency Medicine; Admitting Provider Family Medicine; Emergency Provider Emergency Medicine; PCP Nurse Practitioner; Visit Provider Student in an Organized Health Care Education/Training Program
DX: U07.1 COVID-19 (principal); J12.82 Pneumonia due to coronavirus disease 2019; J15.9 Unspecified bacterial pneumonia; J96.01 Acute respiratory failure with hypoxia; N39.0 Urinary tract infection, site not specified; G93.49 Other encephalopathy; N31.9 Neuromuscular dysfunction of bladder, unspecified; E11.51 Type 2 diabetes mellitus with diabetic peripheral angiopathy without gangrene; Z95.820 Peripheral vascular angioplasty status with implants and grafts; Z79.82 Long term (current) use of aspirin; Z79.4 Long term (current) use of insulin; Z87.891 Personal history of nicotine dependence; I25.2 Old myocardial infarction; Z97.8 Presence of other specified devices; Z83.3 Family history of diabetes mellitus; Z82.3 Family history of stroke; Z53.29 Procedure and treatment not carried out because of patient's decision for other reasons
CPT/HCPCS: 0241U; 36415; 36416; 71045; 71275; 74176; 80051; 80053; 80061; 80162; 81001; 82330; 82805; 82962; 83036; 83605; 83735; 83880; 84145; 84443; 84484; 85025; 85378; 86140; 87040; 87086; 93005; 93970; 94640; 96365; 96367; 96372; 96375; 99285; J0248; J0696; J1100; J1650; J1815; J2185; J2470; J2919; J3370; J3490; J7613; J7626; J7799

== ENCOUNTER → 2024-06-02 13:55 | Outpatient (BNVA) | payer MEDICARE, MEDICAID, SELFPAY | PROVIDERS: PCP Nurse Practitioner; Visit Provider Thoracic Surgery (Cardiothoracic Vascular Surgery) | DX: E11.622 Type 2 diabetes mellitus with other skin ulcer (principal); L97.811 Non-pressure chronic ulcer of other part of right lower leg limited to breakdown of skin; E11.621 Type 2 diabetes mellitus with foot ulcer; L97.511 Non-pressure chronic ulcer of other part of right foot limited to breakdown of skin; L97.521 Non-pressure chronic ulcer of other part of left foot limited to breakdown of skin; I89.0 Lymphedema, not elsewhere classified | CPT/HCPCS: 97597; A6210 ==

== ENCOUNTER → 2024-09-23 13:42 | Outpatient (BNVA) | payer MEDICARE, MEDICAID, SELFPAY | PROVIDERS: PCP Nurse Practitioner; Visit Provider Internal Medicine | DX: I25.118 Atherosclerotic heart disease of native coronary artery with other forms of angina pectoris (principal); I73.9 Peripheral vascular disease, unspecified; I25.2 Old myocardial infarction; Z87.891 Personal history of nicotine dependence | CPT/HCPCS: 99213 ==